=== PATIENT | female | born 1965 | race Caucasian/White ===

== ENCOUNTER 2020-12-25 07:06 | Outpatient (REF) | payer BC, SELFPAY ==
[2020-12-25 07:35] LABS: MANUAL DIFF FLAG NO
[2020-12-25 07:39] LABS: Basophils Absolute Auto 0.1 X10*3/uL (0.0-0.2); Basophils Percent Auto 0.5 % (0-2); Eosinophils Absolute Auto 0.2 X10*3/uL (0.0-0.4); Eosinophils Percent Auto 2.4 % (0-4); Hematocrit 46.9 % (37-47); Hemoglobin 15.7 g/dl (12.0-16.0); Imm Gran Abs Auto 0.04 X10*3/uL (0.00-0.03); Imm Gran Pct Auto 0.4 % (0.0-0.4); Lymphocytes Absolute Auto 2.4 X10*3/uL (1.2-4.9); Lymphocytes Percent Auto 25.7 % (20-40); Mean Corpuscular HGB Conc 33.5 g/dl (31.0-35.0); Mean Corpuscular Hemoglobin 29.5 pg (27.0-33.0); Mean Corpuscular Volume 88.2 fL (80-98); Mean Platelet Volume 11.4 fL (9.4-12.3); Monocytes Absolute Auto 0.8 X10*3/uL (0.1-1.2); Monocytes Percent Auto 8.4 % (2-11); Neutrophils Absolute Auto 5.8 X10*3/uL (2.0-8.3); Neutrophils Percent Auto 62.6 % (45-73); Platelet Count 229 X10*3/uL (160-400); Red Blood Count 5.32 X10*6/uL (4.20-5.50); Red Cell Distribution Width 12.4 % (11.0-16.0); White Blood Count 9.2 X10*3/uL (4.8-10.8)
[2020-12-25 08:08] LABS: Alanine Aminotransferase 42 U/L (0-31); Albumin Level 4.1 g/dL (3.5-5.0); Alkaline Phosphatase 73 U/L (39-117); Anion Gap 14 (12-20); Aspartate Amino Transferase 41 U/L (5-31); Bilirubin Total 1.4 mg/dL (0.0-1.0); Blood Urea Nitrogen 14 mg/dL (9-16); Calcium 9.1 mg/dL (8.4-10.2); Carbon Dioxide 29 mmol/L (22-29); Chloride 102 mmol/L (96-108); Cholesterol 255 mg/dL; Estimated Glomerular Filt Rate > 60; Glucose Fasting 113 mg/dL (60-99); HDL Cholesterol 44 mg/dL; Iron 77 mcg/dL (30-160); LDL Cholesterol Calculated 148 mg/dl; Percent Iron Saturation 20 % (15-50); Potassium 3.7 mmol/L (3.3-5.1); Sodium 141 mmol/L (135-145); Total Iron Binding Capacity 385 mcg/dL (228-428); Total Protein 6.7 g/dL (6.5-8.0); Triglycerides 316 mg/dL; Unsaturated Iron Binding 308 ug/dL
[2020-12-25 13:36] LABS: Folate 15.1 ng/mL (> or = 4.0); Vitamin B12 569 pg/mL (200-900)
[2020-12-28 23:51] LABS: Parietal Cell Antibody 41.2 Unit (<=20.0)
[2020-12-29 12:11] LABS: Vitamin D 25-OH, D2 <4 ng/mL; Vitamin D 25-OH, D3 35 ng/mL; Vitamin D 25-OH, Total 35 ng/mL (30-100)
[2020-12-30 20:26] LABS: Intrinsic Factor Antibodies Negative (Negative)
== END 2020-12-25 07:07 | disposition home or self-care (01) ==
LOC: HO.LAB 07:06
PROVIDERS: PCP Internal Medicine; Visit Provider Internal Medicine
DX: I10 Essential (primary) hypertension (principal); D50.9 Iron deficiency anemia, unspecified; D51.9 Vitamin B12 deficiency anemia, unspecified; E55.9 Vitamin D deficiency, unspecified
CPT/HCPCS: 36415; 80053; 80061; 82306; 82607; 82746; 83516; 83540; 85025; 86340

== ENCOUNTER 2021-07-02 07:07 | Outpatient (REF) | payer BC, SELFPAY ==
[2021-07-02 07:55] LABS: MANUAL DIFF FLAG NO
[2021-07-02 08:02] LABS: Basophils Percent Auto 0.3 % (0-2); Eosinophils Absolute Auto 0.3 X10*3/uL (0.0-0.4); Eosinophils Percent Auto 3.2 % (0-4); Hematocrit 43.3 % (37-47); Hemoglobin 14.8 g/dl (12.0-16.0); Imm Gran Abs Auto 0.05 X10*3/uL (0.00-0.03); Imm Gran Pct Auto 0.6 % (0.0-0.4); Lymphocytes Absolute Auto 2.4 X10*3/uL (1.2-4.9); Lymphocytes Percent Auto 27.8 % (20-40); Mean Corpuscular HGB Conc 34.2 g/dl (31.0-35.0); Mean Corpuscular Hemoglobin 29.2 pg (27.0-33.0); Mean Corpuscular Volume 85.6 fL (80-98); Mean Platelet Volume 11.9 fL (9.4-12.3); Monocytes Absolute Auto 0.7 X10*3/uL (0.1-1.2); Monocytes Percent Auto 7.6 % (2-11); Neutrophils Absolute Auto 5.3 X10*3/uL (2.0-8.3); Neutrophils Percent Auto 60.5 % (45-73); Platelet Count 201 X10*3/uL (160-400); Red Blood Count 5.06 X10*6/uL (4.20-5.50); Red Cell Distribution Width 12.4 % (11.0-16.0); White Blood Count 8.8 X10*3/uL (4.8-10.8)
[2021-07-02 10:07] LABS: Alanine Aminotransferase 26 U/L (0-31); Albumin Level 3.9 g/dL (3.5-5.0); Alkaline Phosphatase 77 U/L (39-117); Anion Gap 13 (12-20); Aspartate Amino Transferase 24 U/L (5-31); Bilirubin Total 1.9 mg/dL (0.0-1.0); Blood Urea Nitrogen 15 mg/dL (9-16); Calcium 9.3 mg/dL (8.4-10.2); Carbon Dioxide 29 mmol/L (22-29); Chloride 103 mmol/L (96-108); Cholesterol 180 mg/dL; Estimated Glomerular Filt Rate > 60; Glucose Fasting 104 mg/dL (60-99); HDL Cholesterol 40 mg/dL; LDL Cholesterol Calculated 104 mg/dl; Potassium 3.4 mmol/L (3.3-5.1); Sodium 142 mmol/L (135-145); Total Protein 6.2 g/dL (6.5-8.0); Triglycerides 184 mg/dL
[2021-07-04 03:50] LABS: Folate 12.6 ng/mL (> or = 4.0); Vitamin B12 432 pg/mL (200-900)
[2021-07-07 15:36] LABS: Vitamin D 25-OH, D2 <4 ng/mL; Vitamin D 25-OH, D3 33 ng/mL; Vitamin D 25-OH, Total 33 ng/mL (30-100)
== END 2021-07-02 07:08 | disposition home or self-care (01) ==
LOC: HO.LAB 07:07
PROVIDERS: PCP Internal Medicine; Visit Provider Internal Medicine
DX: E78.5 Hyperlipidemia, unspecified (principal); I10 Essential (primary) hypertension; E55.9 Vitamin D deficiency, unspecified; D51.0 Vitamin B12 deficiency anemia due to intrinsic factor deficiency; D50.9 Iron deficiency anemia, unspecified
CPT/HCPCS: 36415; 80053; 80061; 82306; 82607; 82746; 85025

== ENCOUNTER 2021-11-05 07:20 | Outpatient (REF) | payer BC, SELFPAY ==
[2021-11-05 07:42] LABS: MANUAL DIFF FLAG NO
[2021-11-05 08:13] LABS: Basophils Percent Auto 0.3 % (0-2); Eosinophils Absolute Auto 0.2 X10*3/uL (0.0-0.4); Eosinophils Percent Auto 2.5 % (0-4); Hematocrit 41.1 % (37.0-47.0); Hemoglobin 13.6 g/dl (12.0-16.0); Imm Gran Abs Auto 0.06 X10*3/uL (0.00-0.03); Imm Gran Pct Auto 0.6 % (0.0-0.4); Lymphocytes Absolute Auto 2.7 X10*3/uL (1.2-4.9); Lymphocytes Percent Auto 27.3 % (20-40); Mean Corpuscular HGB Conc 33.1 g/dl (31.0-35.0); Mean Corpuscular Hemoglobin 29.2 pg (27.0-33.0); Mean Corpuscular Volume 88.2 fL (80.0-98.0); Mean Platelet Volume 11.9 fL (9.4-12.3); Monocytes Absolute Auto 0.8 X10*3/uL (0.1-1.2); Monocytes Percent Auto 8.3 % (2-11); Neutrophils Absolute Auto 5.9 x10*3/uL (2.0-8.3); Platelet Count 214 X10*3/uL (160-400); Red Blood Count 4.66 X10*6/uL (4.20-5.50); Red Cell Distribution Width 13.9 % (11.0-16.0); White Blood Count 9.7 X10*3/uL (4.8-10.8)
[2021-11-05 08:39] LABS: Alanine Aminotransferase 24 U/L (0-31); Albumin Level 3.7 g/dL (3.5-5.0); Alkaline Phosphatase 69 U/L (39-117); Anion Gap 12 (12-20); Aspartate Amino Transferase 23 U/L (5-31); Blood Urea Nitrogen 18 mg/dL (9-16); Calcium 9.3 mg/dL (8.4-10.2); Carbon Dioxide 29 mmol/L (22-29); Chloride 103 mmol/L (96-108); Cholesterol 169 mg/dL; Estimated Glomerular Filt Rate > 60; Glucose Fasting 98 mg/dL (60-99); HDL Cholesterol 43 mg/dL; LDL Cholesterol Calculated 98 mg/dl; Potassium 3.4 mmol/L (3.3-5.1); Sodium 141 mmol/L (135-145); Total Protein 6.3 g/dL (6.5-8.0); Triglycerides 141 mg/dL
[2021-11-07 09:30] LABS: Folate 17.8 ng/mL (> or = 4.0); Vitamin B12 525 pg/mL (200-900)
[2021-11-10 12:47] LABS: Vitamin D 25-OH, D2 <4 ng/mL; Vitamin D 25-OH, D3 33 ng/mL; Vitamin D 25-OH, Total 33 ng/mL (30-100)
== END 2021-11-05 07:21 | disposition home or self-care (01) ==
LOC: HO.LAB 07:20
PROVIDERS: Visit Provider Internal Medicine
DX: E78.5 Hyperlipidemia, unspecified (principal); E55.9 Vitamin D deficiency, unspecified; D64.9 Anemia, unspecified; D51.0 Vitamin B12 deficiency anemia due to intrinsic factor deficiency
CPT/HCPCS: 36415; 80053; 80061; 82306; 82607; 82746; 85025

== ENCOUNTER 2022-04-08 07:14 | Outpatient (REF) | payer BC, SELFPAY ==
[2022-04-08 07:31] LABS: MANUAL DIFF FLAG NO
[2022-04-08 08:18] LABS: Basophils Percent Auto 0.4 % (0-2); Eosinophils Absolute Auto 0.4 X10*3/uL (0.0-0.4); Eosinophils Percent Auto 4.3 % (0-4); Hematocrit 44.6 % (37.0-47.0); Hemoglobin 14.4 g/dl (12.0-16.0); Imm Gran Abs Auto 0.05 X10*3/uL (0.00-0.03); Imm Gran Pct Auto 0.5 % (0.0-0.4); Lymphocytes Absolute Auto 2.4 X10*3/uL (1.2-4.9); Lymphocytes Percent Auto 24.6 % (20-40); Mean Corpuscular HGB Conc 32.3 g/dl (31.0-35.0); Mean Corpuscular Hemoglobin 27.7 pg (27.0-33.0); Mean Corpuscular Volume 85.8 fL (80.0-98.0); Mean Platelet Volume 11.6 fL (9.4-12.3); Monocytes Absolute Auto 0.9 X10*3/uL (0.1-1.2); Monocytes Percent Auto 9.4 % (2-11); Neutrophils Absolute Auto 5.9 x10*3/uL (2.0-8.3); Neutrophils Percent Auto 60.8 % (45-73); Platelet Count 201 X10*3/uL (160-400); Red Cell Distribution Width 13.2 % (11.0-16.0); White Blood Count 9.6 X10*3/uL (4.8-10.8)
[2022-04-08 08:32] LABS: Alanine Aminotransferase 32 U/L (0-31); Albumin Level 3.9 g/dL (3.5-5.0); Alkaline Phosphatase 79 U/L (39-117); Anion Gap 13 (12-20); Aspartate Amino Transferase 29 U/L (5-31); Bilirubin Total 1.7 mg/dL (0.0-1.0); Blood Urea Nitrogen 15 mg/dL (9-16); Calcium 9.3 mg/dL (8.4-10.2); Carbon Dioxide 30 mmol/L (22-29); Chloride 103 mmol/L (96-108); Cholesterol 162 mg/dL; Estimated Glomerular Filt Rate > 60; Glucose Fasting 106 mg/dL (60-99); HDL Cholesterol 44 mg/dL; Iron 66 mcg/dL (30-160); LDL Cholesterol Calculated 89 mg/dl; Percent Iron Saturation 17 % (15-50); Potassium 3.9 mmol/L (3.3-5.1); Sodium 142 mmol/L (135-145); Total Iron Binding Capacity 387 mcg/dL (228-428); Total Protein 6.4 g/dL (6.5-8.0); Triglycerides 148 mg/dL; Unsaturated Iron Binding 321 ug/dL
[2022-04-10 09:00] LABS: Vitamin B12 555 pg/mL (200-900)
[2022-04-13 12:26] LABS: Vitamin D 25-OH, D2 <4 ng/mL; Vitamin D 25-OH, D3 45 ng/mL; Vitamin D 25-OH, Total 45 ng/mL (30-100)
== END 2022-04-08 07:15 | disposition home or self-care (01) ==
LOC: HO.LAB 07:14
PROVIDERS: PCP Internal Medicine; Visit Provider Internal Medicine
DX: E55.9 Vitamin D deficiency, unspecified (principal); D51.0 Vitamin B12 deficiency anemia due to intrinsic factor deficiency; E78.5 Hyperlipidemia, unspecified; D64.9 Anemia, unspecified; E78.2 Mixed hyperlipidemia
CPT/HCPCS: 36415; 80053; 80061; 82306; 82607; 82746; 83540; 85025

== ENCOUNTER 2023-03-15 07:43 | Outpatient (REF) | payer OTHER, SELFPAY ==
[2023-03-15 07:54] LABS: MANUAL DIFF FLAG NO
[2023-03-15 08:20] LABS: Basophils Absolute Auto 0.1 X10*3/uL (0.0-0.2); Basophils Percent Auto 0.6 % (0-2); Eosinophils Absolute Auto 0.3 X10*3/uL (0.0-0.4); Eosinophils Percent Auto 2.9 % (0-4); Hematocrit 47.4 % (37.0-47.0); Hemoglobin 15.3 g/dl (12.0-16.0); Imm Gran Abs Auto 0.04 X10*3/uL (0.00-0.03); Imm Gran Pct Auto 0.5 % (0.0-0.4); Lymphocytes Absolute Auto 2.6 X10*3/uL (1.2-4.9); Lymphocytes Percent Auto 29.5 % (20-40); Mean Corpuscular HGB Conc 32.3 g/dl (31.0-35.0); Mean Corpuscular Hemoglobin 27.9 pg (27.0-33.0); Mean Corpuscular Volume 86.3 fL (80.0-98.0); Mean Platelet Volume 11.9 fL (9.4-12.3); Monocytes Absolute Auto 0.7 X10*3/uL (0.1-1.2); Monocytes Percent Auto 8.4 % (2-11); Neutrophils Percent Auto 58.1 % (45-73); Platelet Count 194 X10*3/uL (160-400); Red Blood Count 5.49 X10*6/uL (4.20-5.50); Red Cell Distribution Width 12.7 % (11.0-16.0); White Blood Count 8.6 X10*3/uL (4.8-10.8)
[2023-03-15 09:14] LABS: Alanine Aminotransferase 20 U/L (0-31); Albumin Level 3.9 g/dL (3.5-5.0); Alkaline Phosphatase 83 U/L (39-117); Anion Gap 13 (12-20); Aspartate Amino Transferase 18 U/L (5-31); Bilirubin Total 1.7 mg/dL (0.0-1.0); Blood Urea Nitrogen 21 mg/dL (9-16); Calcium 9.4 mg/dL (8.4-10.2); Carbon Dioxide 28 mmol/L (22-29); Chloride 105 mmol/L (96-108); Cholesterol 175 mg/dL; Estimated Glomerular Filt Rate > 60; Glucose Fasting 109 mg/dL (60-99); HDL Cholesterol 38 mg/dL; LDL Cholesterol Calculated 99 mg/dl; Potassium 3.3 mmol/L (3.3-5.1); Sodium 143 mmol/L (135-145); Total Protein 6.4 g/dL (6.5-8.0); Triglycerides 191 mg/dL
[2023-03-15 09:44] LABS: Vitamin B12 469 pg/mL (200-900)
== END 2023-03-15 07:44 | disposition home or self-care (01) ==
LOC: HO.LAB 07:43
PROVIDERS: PCP Internal Medicine; Visit Provider Internal Medicine
DX: E78.5 Hyperlipidemia, unspecified (principal); D51.0 Vitamin B12 deficiency anemia due to intrinsic factor deficiency; D64.9 Anemia, unspecified; I10 Essential (primary) hypertension
CPT/HCPCS: 36415; 80053; 80061; 82607; 82746; 85025

== ENCOUNTER 2024-05-29 16:45 | Outpatient (AMB) | payer OTHER, SELFPAY ==
[2024-05-29 16:46] VITALS: BP 122/70; BMI 41.6
--- NOTE | 2024-05-29 16:46 | MHC.PC.OV ---
Vital Signs 05/29/24 16:46 Height 5 ft 3 in Weight 235 lb BMI 41.6 BP 122/70 Blood Pressure Location Lt brachial Position Sitting Intake Visit Reasons: 6 month follow up Intake Note: Patient here for a 6 month follow up Psychiatric Nurse Practitioner Required: No Accompanied by: Self / Same As Patient Allergies No Known Allergies [No Known Allergies*] Allergy (Verified 05/29/24 17:01) Medication List - Last Reconciled 05/29/24 by Maggie Kaba MD atenolol-chlorthalidone 100-25 mg 1 tab PO DAILY atorvastatin 20 mg PO BEDTIME 90 days blood pressure test kit-large As directed cholecalciferol (vitamin D3) (Vitamin D3) 25 mcg PO DAILY cyanocobalamin (vitamin B-12) 1,000 mcg PO DAILY 90 days duloxetine 30 mg PO DAILY 90 days lisinopril 40 mg PO DAILY 90 days magnesium oxide 500 mg PO DAILY 90 days Tobacco use date assessed: 05/29/24 Dental Screening Dental Screen Date: 05/29/24 Did you have a dental visit in the last 12 months?: Yes Did you have a dental problem in the last 6 months where you did not have access to dental care?: No Was dental information given to patient?: Patient has dentist HPI HPI Comments History of Present Illness Details This is a 58-year-old female with hypertension, mixed hyperlipidemia and morbid obesity that comes today complaining of bilateral knee pain that has been present for over 6 months. Pain is aggravated by activity. Blood pressure stable today. Lipid panel will be ordered. She is morbidly obese with a BMI of 41.6 and has cardiovascular risk factors such as hypertension and mixed hyperlipidemia therefore I will start her on Wegovy. She has tried diet and exercise in the past with no significant improvement. She also has mild recurrent major depression on duloxetine. [facility] Medical History (Updated 05/29/24 @ 17:32 by Maggie Kaba MD) Morbid obesity with BMI of 40.0-44.9, adult Obese Mixed hyperlipidemia Pernicious anemia Iron (Fe) deficiency anemia (~08/31/20) B12 deficiency anemia Hypovitaminosis D Essential hypertension Surgical History History of eye surgery History of Family History Father Hypertension Mother Hypertension Maternal Grandmother Ovarian cancer Social History Housing: House Alcohol intake: current Alcohol intake frequency: holidays/special occasions only Alcohol type: beer and wine Patient Tobacco Use Status: Never used Tobacco e-Cigarette/Vaping Use: Never Used Second Hand Smoke Exposure: Yes service: No Current occupational status: employed Current occupational exposures/hazards: No Cognitive needs: No Hearing needs: No Vision needs: No Questionnaire PHQ-9 Over the last 2 weeks, how often have you been bothered by any of the following problems? 1. Little interest or pleasure in doing things: several days 2. Feeling down, depressed, or hopeless: more than half the days 3. Trouble falling or staying asleep, or sleeping too much: more than half the days 5. Poor appetite or overeating: several days 6. Feeling bad about yourself - or that you are a failure or have let yourself or your family down: not at all 7. Trouble concentrating on things, such as reading the newspaper or watching television: not at all 8. Moving or speaking so slowly that other people could have noticed. Or the opposite - being so fidgety or restless that you have been moving around a lot more than usual: not at all 9. Thoughts that you would be better off or of hurting yourself in some way: not at all Depression Screening Interpretation: Positive Depression Screening Follow-up: Existing condition, In treatment and Follow-up Visit Requested Depression Screening Done: Yes 96244 - PHQ-9 Billing: Yes Source: Developed by Drs. Rocky Palm, Dipti Solares, Shaka Crandall and colleagues, with an educational chio from [email or web address]. Thrive Questionnaire Date Thrive assessed: 05/29/24 I am a: Patient What is your living situation today?: I have a steady place to live Within the past 12 months, did the food you bought not last and you didn't have the money to get more?: Never true Within the past 12 months, did you worry whether your food would run out before you got money to buy more?: Never true Do you have trouble paying for medicines?: No Do you have trouble getting transportation to medical appointments?: No Do you have trouble paying your heating and electricity bill?: No Do you have trouble taking care of your child, family member or friend?: No Do you have trouble with day-to-day activities such as bathing, preparing meals, shopping, managing finances, etc.?: No Are you currently unemployed and looking for a job?: No Are you interested in more education?: No Please select the resources that you would like help with: None Currently or been in a relationship where the following occur: No concerns reported THRIVE Score: 0 AUDIT C Alcohol Use Questionnaire (AUDIT-C) 1. How often do you have a drink containing alcohol?: Monthly or less 2. How many drinks containing alcohol do you have on a typical day when you are drinking?: 1 or 2 3. How often do you have six or more drinks on one occasion?: Never Total Score: 1 Score Reviewed/Action Taken: No NEDRA-7 AMB Questionnaire NEDRA-7 Date NEDRA - 7 assessed: 05/29/24 Feeling nervous, anxious, or on edge: 3 = Nearly every day Not being able to stop or control worryin = Not at all Worrying too much about different things: 1 = Several days Trouble relaxin = Several days Being so restless that it is hard to sit still: 0 = Not at all Becoming easily annoyed or irritable: 0 = Not at all Feeling afraid as if something awful might happen: 0 = Not at all Total NEDRA-7 score (0-4 normal; 5-9 mild; 10-14 moderate; 15-21 severe): 5 Source: Developed by Drs. Rocky Palm, Dipti Solares, Shaka Crandall and colleagues, with an educational chio from [email or web address]. NEDRA-7 Assessment Billing NEDRA-7 Assessment Tool: NEDRA-7 Assessment 07314 Review of Systems Const All systems reviewed & are unremarkable except as noted in HPI and below Card Denies chest pain at rest, Denies chest pain with activity, Denies edema, Denies irregular heart rhythm, Denies claudication, Denies dyspnea, Denies dyspnea on exertion, Denies orthopnea, Denies paroxysmal nocturnal dyspnea and Denies slow heart rate Resp Denies cough, Denies dyspnea and Denies dyspnea on exertion Physical exam (Primary Care) Vital Signs: Last Vital Signs BP 122/70 05/29/24 16:46 BMI result Body Mass Index 41.6 BMI Assessment/Plan discussion: High BMI High, discussed plan: lifestyle, weight reduction, dietary and physical activity Tobacco/Smoking Status: Tobacco use Status Tobacco use date assessed 05/29/24 05/29/24 16:54 Patient Tobacco Use Status Never used Tobacco 05/29/24 16:54 e-Cigarette/Vaping Use Never Used 05/29/24 16:54 PHQ-9: PHQ-9 Score PHQ-9: Total score 8 05/29/24 16:54 Depression Screening Interpretation: Positive Depression Screening Follow-up: Existing condition, In treatment and Follow-up Visit Requested Thrive Assessment: Date of Thrive Assessment Date Thrive assessed 05/29/24 05/29/24 16:54 Currently or been in a relationship where the following occur: No concerns reported Resp Effort & Inspection: normal respiratory effort Auscultation: clear to auscultation bilaterally Cardio Jugular venous distension: no JVD Rate: regular rate Rhythm: regular rhythm Heart sounds: S1 normal heart sound present and S2 normal heart sound present Extrem General: Yes full ROM Assessment and Plan Assessment & Plan (1) Essential hypertension: Code(s): I10 - Essential (primary) hypertension Plan: Continue lisinopril and atenolol-chlorthalidone. Blood pressure goal is equal or less than 130/80. (2) Mixed hyperlipidemia: Code(s): E78.2 - Mixed hyperlipidemia Plan: Continue statins. Repeat lipid panel. (3) Morbid obesity with BMI of 40.0-44.9, adult: Code(s): E66.01 - Morbid (severe) obesity due to excess calories; Z68.41 - Body mass index [BMI] 40.0-44.9, adult Plan: Start Wegovy. BMI goal is less than 30. (4) Right knee pain: Code(s): M25.561 - Pain in right knee Qualifiers: Chronicity: chronic Qualified Code(s): M25.561 - Pain in right knee; G89.29 - Other chronic pain Plan: X-ray ordered. Referred to Ortho. (5) Left knee pain: Code(s): M25.562 - Pain in left knee Qualifiers: Chronicity: chronic Qualified Code(s): M25.562 - Pain in left knee; G89.29 - Other chronic pain Plan: X-ray ordered. Referred to Ortho. (6) Mild recurrent major depression: Code(s): F33.0 - Major depressive disorder, recurrent, mild Plan: Continue duloxetine. Orders: Orders Vitamin B12 and Folate Today E53.8 - Deficiency of other specified B group vitamins Comprehensive Clive. Panel Fast Today E66.01 - Morbid (severe) obesity due to excess calories, Z68.41 - Body mass index [BMI] 40.0-44.9, adult XR knee LT 2V Today M25.562 - Pain in left knee XR knee RT 2V Today M25.561 - Pain in right knee Lipid Panel Today E78.5 - Hyperlipidemia, unspecified Vitamin D 25-OH Total Today E55.9 - Vitamin D deficiency, unspecified Referrals Orthopedics Referral M25.561 - Pain in right knee, M25.562 - Pain in left knee Medications: New diclofenac sodium 1% (Arthritis Pain (diclofenac)) apply to single elbow, wrist or hand; for hand includes palm/fingers/back of hand 2 grams topical QID 30 days 100 grams 0RF semaglutide (weight loss) (Wegovy) administer weeks 1 through 4 of therapy 0.25 mg (0.5 mL) subcut QWEEK 4 weeks 2 mL 0RF E66.01 - Morbid (severe) obesity due to excess calories, Z68.41 - Body mass index [BMI] 40.0-44.9, adult naproxen 500 mg PO BID 30 days PRN 60 tabs 2RF pain Coding Level of Care Code Est Pt Level 4 (00899) Complex EM visit Add On G2211 Diagnoses Essential hypertension I10 Mixed hyperlipidemia E78.2 Morbid obesity with BMI of 40.0-44.9, adult E66.01; Z68.41 Chronic pain of right knee M25.561; G89.29 Chronicity: chronic Chronic pain of left knee M25.562; G89.29 Chronicity: chronic Mild recurrent major depression F33.0 Additional Codes NEDRA-7 Assessment Billing - NEDRA-7 Assessment Tool: NEDRA-7 Assessment [id number] ([id number]) Time Spent (min) 25
== END 2024-05-29 17:26 | disposition home or self-care (01) ==
PROVIDERS: PCP Internal Medicine; Visit Provider Internal Medicine
DX: I10 Essential (primary) hypertension (principal); E66.01 Morbid (severe) obesity due to excess calories; Z68.41 Body mass index [BMI] 40.0-44.9, adult; F33.0 Major depressive disorder, recurrent, mild; E78.2 Mixed hyperlipidemia; M25.561 Pain in right knee; G89.29 Other chronic pain; M25.562 Pain in left knee
CPT/HCPCS: 99214; G2211

== ENCOUNTER 2024-07-19 10:49 | Outpatient (REF) | payer OTHER, SELFPAY ==
[2024-07-19 12:06] LABS: Alanine Aminotransferase 18 U/L (0-31); Albumin Level 3.9 g/dL (3.5-5.0); Alkaline Phosphatase 87 U/L (39-117); Anion Gap 12 (12-20); Aspartate Amino Transferase 16 U/L (5-31); Bilirubin Total 1.4 mg/dL (0.0-1.0); Blood Urea Nitrogen 22 mg/dL (9-16); Calcium 9.3 mg/dL (8.4-10.2); Carbon Dioxide 30 mmol/L (22-29); Chloride 103 mmol/L (96-108); Cholesterol 166 mg/dL (<200); Estimated Glomerular Filt Rate > 60; Glucose Fasting 112 mg/dL (60-99); HDL Cholesterol 39 mg/dL (>40); LDL Cholesterol Calculated 92 mg/dL (<100); Potassium 3.2 mmol/L (3.3-5.1); Sodium 142 mmol/L (135-145); Total Protein 6.7 g/dL (6.5-8.0); Triglycerides 179 mg/dL (<150); Vitamin D 25-OH Total 54.2 ng/mL (>30)
[2024-07-19 12:19] LABS: Folate 11.5 ng/mL (> or = 4.0); Vitamin B12 602 pg/mL (200-900)
== END 2024-07-19 10:50 | disposition home or self-care (01) ==
LOC: HO.LAB 10:49
PROVIDERS: PCP Internal Medicine; Visit Provider Internal Medicine
DX: E66.01 Morbid (severe) obesity due to excess calories (principal); Z68.41 Body mass index [BMI] 40.0-44.9, adult; E78.5 Hyperlipidemia, unspecified; E55.9 Vitamin D deficiency, unspecified; E53.8 Deficiency of other specified B group vitamins
CPT/HCPCS: 36415; 80053; 80061; 82306; 82607; 82746

== ENCOUNTER 2024-07-29 08:09 | Outpatient (REF) | payer OTHER, SELFPAY ==
--- NOTE | ~2024-07-29 | XR_ITS ---
EXAMINATION: XR KNEE RIGHT 2 VIEWS CLINICAL INFORMATION: Pain in unspecified knee M25.569. COMPARISON: XR Right knee 06/15/2018 TECHNIQUE: Two views of the right knee. FINDINGS: No fracture or dislocation. Tiny suprapatellar joint effusion. Near complete loss of medial and lateral joint space heights with associated moderate to large tricompartmental marginal osteophytes. XR/XR knee RT 3V IMPRESSION: Severe degenerative changes of the right knee, progressed from 2018 imaging. Electronically signed by: Ricardo Arroyo MD 09/24/2024 09:15 AM [facility]
--- NOTE | ~2024-07-29 | XR_ITS ---
EXAMINATION: XR KNEE LEFT 3 VIEWS CLINICAL INFORMATION: Pain in unspecified knee M25.569. COMPARISON: XR Left knee 06/15/2018 TECHNIQUE: Three views of the left knee. FINDINGS: No fracture or dislocation. Tiny suprapatellar joint effusion. Complete loss of medial joint space height with severe narrowing of the lateral joint space. Moderate-sized tricompartmental marginal osteophytes. No localized soft tissue swelling. No radiopaque foreign body. XR/XR knee LT 3V IMPRESSION: Severe degenerative changes of the left knee, progressed from 2018 imaging. Electronically signed by: Ricardo Arroyo MD 09/24/2024 09:16 AM [facility]
== END 2024-07-29 08:10 | disposition home or self-care (01) ==
LOC: HO.HOSX 08:09
PROVIDERS: Visit Provider Physician Assistant
DX: M17.0 Bilateral primary osteoarthritis of knee (principal)
CPT/HCPCS: 73562

== ENCOUNTER 2024-07-29 09:53 | Outpatient (AMB) | payer OTHER, SELFPAY ==
--- NOTE | 2024-07-29 10:06 | MHC.OFFVIS ---
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 Patient reports ongoing pain for about 26 years and she feels it is getting worse. Hx of injections with a day of relief. Hx of 3-4 months of PT with no relief. She mentions that her right knee is worse than the left knee. Patient states that she has tried exercising and changing her diet which didn't give her relief. She mentions when she is sitting her pain is a bit better. Patient is thinking about replacement and she would like to do both but she would choose her right knee. 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 The patient was seen by Dr. Maggie Quigley, PCP on 05/29/24 with the chief complaint of bilateral knee pain. She reported aggravating pain with activities. X-rays of the bilateral knees were ordered. She was prescribed diclofenac sodium 1% 2 grams topical QID and naproxen 500 mg PO BID PRN for pain. While in the office today, the patient reports ongoing bilateral knee pain for about 26 years and has been worsening. She reports the right knee pain is worse than the left knee. The patient has tried and failed 3-4 months of physical therapy, exercising, injections with a day of relief, and also dietary changes. She mentions pain alleviates a bit when she sits. She would like to have knee replacement for bilateral knees; however, she chose her right knee to have it first. The patient has a medical history of hypertension, morbid obesity, and mixed hyperlipidemia. [facility] Medical History (Updated 07/29/24 @ 11:04 by Azalea Webb) Morbid obesity with BMI of 40.0-44.9, adult Obese Mixed hyperlipidemia Pernicious anemia Iron (Fe) deficiency anemia (~08/31/20) B12 deficiency anemia Hypovitaminosis D Essential hypertension Surgical History History of eye surgery History of Family History Father Hypertension Mother Hypertension Maternal Grandmother Ovarian cancer Social History (Updated 07/29/24 @ 10:13 by Vlad Lang) Housing: House Alcohol intake: current Alcohol intake frequency: holidays/special occasions only Alcohol type: beer and wine Patient Tobacco Use Status: Never used Tobacco e-Cigarette/Vaping Use: Never Used Second Hand Smoke Exposure: Yes service: No Current occupational status: employed 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 No ecchymosis, erythema, or joint effusion. Full range of motion. Crepitus is felt with ROM. NVI. Assessment & Plan Assessment & Plan (1) Osteoarthritis of knees, bilateral: Code(s): M17.0 - Bilateral primary osteoarthritis of knee Category: Medical Plan Ms. Heller is a 58-year-old female who presents in the office today as a new patient, for an evaluation of bilateral knee pain. The patient was seen by Dr. Maggie Quigley, PCP on 05/29/24 with the chief complaint of bilateral knee pain. She reported aggravating pain with activities. X-rays of the bilateral knees were ordered. She was prescribed diclofenac sodium 1% 2 grams topical QID and naproxen 500 mg PO BID PRN for pain. While in the office today, the patient reports ongoing bilateral knee pain for about 26 years and has been worsening. She reports the right knee pain is worse than the left knee. The patient has tried and failed 3-4 months of physical therapy, exercising, injections with a day of relief, and also dietary changes. She mentions pain alleviates a bit when she sits. She would like to have knee replacement for bilateral knees; however, she chose her right knee to have it first. The patient has a medical history of hypertension, morbid obesity, and mixed hyperlipidemia. The patient is adamant about performing bilateral total knee arthroplasties at the same time. I did advise against simultaneous bilateral knee procedures in regards to the patient?s pain, tolerance, and recovery. Despite that, she still would like to further discuss the surgical intervention to the bilateral knees with the surgeon. She is scheduled for an appointment with Dr. Mcdonald on 08/25/24. Salma, the surgical appliance fitter, who was able to meet the patient while in the office today to help with the process of total knee replacement started. Follow-up will be with Dr. Mcdonald as scheduled, or sooner if needed. X-rays of the bilateral knees, which were obtained while in the office today and were reviewed by me, Francisca Malcolm PA-C, revealed significant osteoarthritis. Orders: Orders XR knee RT 3V 07/29/24 M25.569 - Pain in unspecified knee XR knee LT 3V 07/29/24 M25.569 - Pain in unspecified knee Patient Instructions: Scribed by Azalea Webb, biomedical engineering professor, for Francisca Malcolm PA-C on 07/29/24 at 10:20 am EST. Coding Level of Care Code New Pt Level 4 (13129) Diagnoses Osteoarthritis of knees, bilateral M17.0
== END 2024-07-29 10:49 | disposition home or self-care (01) ==
PROVIDERS: PCP Internal Medicine; Visit Provider Physician Assistant
DX: M17.0 Bilateral primary osteoarthritis of knee (principal)
CPT/HCPCS: 99204

== ENCOUNTER 2024-08-02 08:48 | Outpatient (REF) | payer OTHER, SELFPAY ==
[2024-08-02 09:49] LABS: Potassium 3.6 mmol/L (3.3-5.1)
== END 2024-08-02 08:49 | disposition home or self-care (01) ==
LOC: HO.LAB 08:48
PROVIDERS: PCP Internal Medicine; Visit Provider Internal Medicine
DX: E87.6 Hypokalemia (principal)
CPT/HCPCS: 36415; 84132

== ENCOUNTER 2024-08-25 14:39 | Outpatient (AMB) | payer OTHER, SELFPAY ==
--- NOTE | 2024-08-25 14:42 | A.OFFVIS_ITS ---
Intake Visit Reasons: OV - discuss right TKA Intake Note: Janina is a 58 year old female who presents today for a follow up of her right knee OA. Patient reports worsening and ongoing pain for about 26 years. Hx of injections that provided a day of relief. Tried and failed 3/4 months of PT. Has pain in both of the knees but the right is worse than the left. She has previously met with our nurse navigator and is booked for R TKA 12/03/24. Allergies No Known Allergies [No Known Allergies*] Allergy (Verified 07/29/24 10:10) HPI HPI OV - discuss right TKA: Details: Janina is a 58 year old female who presents today for a follow up of her right knee OA. Patient reports worsening and ongoing pain for about 26 years. Hx of injections that provided a day of relief. Tried and failed 3/4 months of PT. Has pain in both of the knees but the right is worse than the left. She has previously met with our nurse navigator and is booked for R TKA 12/03/24. [facility] Medical History (Updated 08/04/24 @ 14:06 by Maggie Kaba MD) Morbid obesity with BMI of 40.0-44.9, adult Obese Mixed hyperlipidemia Pernicious anemia Iron (Fe) deficiency anemia (~08/31/20) B12 deficiency anemia Hypovitaminosis D Essential hypertension Surgical History History of eye surgery History of Family History Father Hypertension Mother Hypertension Maternal Grandmother Ovarian cancer Social History (Updated 07/29/24 @ 10:13 by Vlad Lang) Housing: House Alcohol intake: current Alcohol intake frequency: holidays/special occasions only Alcohol type: beer and wine Patient Tobacco Use Status: Never used Tobacco e-Cigarette/Vaping Use: Never Used Second Hand Smoke Exposure: Yes service: No Current occupational status: employed 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 Bilateral varus malalignment. Results Reviewed Results Reviewed: I personally reviewed relevant radiographs. Severe bilateral knee OA with varus malalignment. Assessment & Plan Assessment & Plan (1) Osteoarthritis of knees, bilateral: Code(s): M17.0 - Bilateral primary osteoarthritis of knee Category: Medical Plan: This is a 59-year-old woman with right knee osteoarthritis that is severe. She has been dealing with this for years and it compromises the quality of the life. She is scheduled for arthroplasty in November. I reviewed the radiographs with her and the procedure and discussed the risks, benefits and alternatives to surgery. I explained the risk of infection, dislocation, aseptic and septic loosening, need for additional surgery as well as stiffness or incomplete symptom resolution. I also described the medical complications associated with surgery such as blood clots and pulmonary emboli. She expressed understanding and we will proceed forward accordingly. Coding Level of Care Code Est Pt Level 4 (47652) Diagnoses Osteoarthritis of knees, bilateral M17.0
== END 2024-08-25 15:29 | disposition home or self-care (01) ==
PROVIDERS: PCP Internal Medicine; Visit Provider Orthopaedic Surgery
DX: M17.0 Bilateral primary osteoarthritis of knee (principal)
CPT/HCPCS: 99214

== ENCOUNTER → 2024-08-25 14:39 | Outpatient (BNVA) | payer OTHER, SELFPAY | PROVIDERS: PCP Internal Medicine; Visit Provider Orthopaedic Surgery ==

== ENCOUNTER 2024-10-06 09:34 | Outpatient (REF) | payer OTHER, SELFPAY ==
[2024-10-06 10:30] LABS: MANUAL DIFF FLAG NO
--- NOTE | 2024-10-06 10:44 | ECG_ITS ---
Test Reason : PRE OP Blood Pressure : / mmHG Vent. Rate : 055 BPM Atrial Rate : 055 BPM P-R Int : 160 ms QRS Dur : 088 ms QT Int : 428 ms P-R-T Axes : 052 043 028 degrees QTc Int : 409 ms Sinus bradycardia with sinus arrhythmia Otherwise normal ECG No previous ECGs available Referred By: Maggie Kaba Electronically Signed By:Arnold Jimenez
[2024-10-06 11:15] LABS: Basophils Absolute Auto 0.1 X10*3/uL (0.0-0.2); Basophils Percent Auto 0.7 % (0-2); Eosinophils Absolute Auto 0.3 X10*3/uL (0.0-0.4); Eosinophils Percent Auto 3.7 % (0-4); Hematocrit 43.8 % (37.0-47.0); Hemoglobin 14.8 g/dl (12.0-16.0); Imm Gran Abs Auto 0.05 X10*3/uL (0.00-0.03); Imm Gran Pct Auto 0.6 % (0.0-0.4); Lymphocytes Absolute Auto 2.1 X10*3/uL (1.2-4.9); Lymphocytes Percent Auto 25.6 % (20-40); Mean Corpuscular HGB Conc 33.8 g/dl (31.0-35.0); Mean Corpuscular Hemoglobin 29.2 pg (27.0-33.0); Mean Corpuscular Volume 86.4 fL (80.0-98.0); Mean Platelet Volume 11.7 fL (9.4-12.3); Monocytes Absolute Auto 0.8 X10*3/uL (0.1-1.2); Monocytes Percent Auto 9.4 % (2-11); Neutrophils Absolute Auto 4.8 x10*3/uL (2.0-8.3); Platelet Count 173 X10*3/uL (160-400); Red Blood Count 5.07 X10*6/uL (4.20-5.50); Red Cell Distribution Width 12.9 % (11.0-16.0); White Blood Count 8.1 X10*3/uL (4.8-10.8)
[2024-10-06 11:48] LABS: Alanine Aminotransferase 19 U/L (0-31); Alkaline Phosphatase 86 U/L (39-117); Anion Gap 11 (12-20); Aspartate Amino Transferase 24 U/L (5-31); Bilirubin Total 1.5 mg/dL (0.0-1.0); Blood Urea Nitrogen 22 mg/dL (9-16); Calcium 9.4 mg/dL (8.4-10.2); Carbon Dioxide 33 mmol/L (22-29); Chloride 106 mmol/L (96-108); Estimated Glomerular Filt Rate > 60; Glucose Fasting 105 mg/dL (60-99); Potassium 4.5 mmol/L (3.3-5.1); Sodium 145 mmol/L (135-145); Total Protein 6.7 g/dL (6.5-8.0)
== END 2024-10-06 09:35 | disposition home or self-care (01) ==
LOC: HO.LAB 09:34
PROVIDERS: PCP Internal Medicine; Visit Provider Internal Medicine
DX: Z01.818 Encounter for other preprocedural examination (principal); M17.0 Bilateral primary osteoarthritis of knee; D64.9 Anemia, unspecified
CPT/HCPCS: 36415; 80053; 85025; 93005

== ENCOUNTER 2024-10-06 09:34 | Outpatient (AMB) | payer OTHER, SELFPAY ==
--- NOTE | 2024-10-06 09:38 | MHC.PC.OV ---
Vital Signs 10/06/24 09:39 Height 5 ft 3 in Weight 242 lb BMI 42.9 BP 132/70 Blood Pressure Location Lt brachial Position Sitting Intake Visit Reasons: R DALE w/Dr. Mcdonald 12/03/24 Marketing Operations Consultant Required: No Accompanied by: Self / Same As Patient Allergies No Known Allergies [No Known Allergies*] Allergy (Verified 10/06/24 09:48) Medication List - Last Reconciled 10/06/24 by Maggie Kaba MD atenolol-chlorthalidone 100-25 mg 1 tab PO DAILY atorvastatin 20 mg PO BEDTIME 90 days blood pressure test kit-large As directed cholecalciferol (vitamin D3) (Vitamin D3) 25 mcg PO DAILY cyanocobalamin (vitamin B-12) 1,000 mcg PO DAILY 90 days diclofenac sodium 1% (Arthritis Pain (diclofenac)) 2 grams topical QID 30 days duloxetine 30 mg PO DAILY 90 days lisinopril 40 mg PO DAILY 90 days magnesium oxide 500 mg PO DAILY 90 days naproxen 500 mg PO BID PRN 30 days potassium chloride ER 8 mEq PO DAILY 3 days semaglutide (weight loss) (Wegovy) 0.25 mg (0.5 mL) subcut QWEEK 4 weeks walker Folding front wheeled walker Tobacco use date assessed: 05/29/24 Dental Screening Dental Screen Date: 05/29/24 HPI HPI Comments History of Present Illness Details The patient is a 59-year-old female presenting for preoperative evaluation of her planned left knee replacement surgery. The surgery was originally scheduled for November but has been postponed to December 17. The patient experiences significant knee pain, which has impacted her ability to cook and manage meals, leading to increased reliance on takeout food and portions. She has pre-existing osteoarthritis that necessitates surgical intervention. The patient manages her hypertension with atenolol-chlortalidone and lisinopril, and her hyperlipidemia with atorvastatin, having last seen well-controlled cholesterol levels in July. Despite efforts with a weight management program, her obesity persists as a concern, partly influenced by knee pain limiting physical activity. She does not have any medication allergies. There is a planned EKG and repeat fasting blood work to reassess the patient's prediabetes. She is going for a medium risk surgery and she has a medium risk patient. Has 5-7 Mets of ADLs. Mild major depression stable with duloxetine. [facility] Medical History (Updated 12/23/24 @ 10:51 by Maggie Kaba MD) Morbid obesity with BMI of 40.0-44.9, adult Obese Mixed hyperlipidemia Pernicious anemia Iron (Fe) deficiency anemia (~08/31/20) B12 deficiency anemia Hypovitaminosis D Essential hypertension Surgical History History of eye surgery History of Family History (Updated 10/06/24 @ 09:56 by Maggie Kaba MD) Father Hypertension COPD (chronic obstructive pulmonary disease) CAD (coronary artery disease) Mother Hypertension Maternal Grandmother Ovarian cancer Social History Housing: House Alcohol intake: current Alcohol intake frequency: holidays/special occasions only Alcohol type: beer and wine Patient Tobacco Use Status: Never used Tobacco e-Cigarette/Vaping Use: Never Used Second Hand Smoke Exposure: Yes service: No Current occupational status: employed 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 How often do you have a drink containing alcohol?: Monthly or less 2. How many drinks containing alcohol do you have on a typical day when you are drinking?: 1 or 2 3. How often do you have six or more drinks on one occasion?: Never Total Score: 1 Score Reviewed/Action Taken: No NEDRA-7 AMB Questionnaire NEDRA-7 Date NEDRA - 7 assessed: 05/29/24 Source: Developed by Drs. Rocky Palm, Dipti Solares, Shaka Crandall and colleagues, with an educational chio from [employer]. Review of Systems Const Details: - Respiratory: Denies chest pain, denies shortness of breath. - General: Reports knee pain affecting daily activities. Physical exam (Primary Care) Vital Signs: Last Vital Signs BP 132/70 10/06/24 09:39 BMI result Body Mass Index 42.9 BMI Assessment/Plan discussion: High BMI High, discussed plan: lifestyle, weight reduction, dietary and physical activity Tobacco/Smoking Status: Tobacco use Status Tobacco use date assessed 05/29/24 10/06/24 09:42 Patient Tobacco Use Status Never used Tobacco 10/06/24 09:42 e-Cigarette/Vaping Use Never Used 10/06/24 09:42 Thrive Assessment: Date of Thrive Assessment Date Thrive assessed 05/29/24 10/06/24 09:42 Const Other: General: No confusion Orientation/Consciousness: Patient oriented x3 and No confusion Head: Normal to inspection, Yes normocephalic and Yes atraumatic Respiratory: Normal respiratory effort, clear to auscultation bilaterally Cardiovascular: No jugular venous distension, regular rate, regular rhythm, S1 normal heart sound present and S2 normal heart sound present Neurology: Patient oriented x3, no focal motor deficits and No confusion Extremities: Full ROM,bilateral knee tenderness Coding Level of Care Code Est Pt Level 4 (43824) Complex EM visit Add On G2211 Diagnoses Pre-op evaluation Z01.818 Morbid obesity with BMI of 40.0-44.9, adult E66.01; Z68.41 Mild recurrent major depression F33.0 Primary osteoarthritis of both knees M17.0 Osteoarthritis type: primary Essential hypertension I10 Time Spent (min) 24 Assessment & Plan Assessment & Plan (1) Pre-op evaluation: Code(s): Z01.818 - Encounter for other preprocedural examination Category: Medical (2) Morbid obesity with BMI of 40.0-44.9, adult: Code(s): E66.01 - Morbid (severe) obesity due to excess calories; Z68.41 - Body mass index [BMI] 40.0-44.9, adult Category: Medical (3) Mild recurrent major depression: Code(s): F33.0 - Major depressive disorder, recurrent, mild Category: Medical (4) Osteoarthritis of knees, bilateral: Code(s): M17.0 - Bilateral primary osteoarthritis of knee Category: Medical Qualifiers: Osteoarthritis type: primary Qualified Code(s): M17.0 - Bilateral primary osteoarthritis of knee (5) Essential hypertension: Code(s): I10 - Essential (primary) hypertension Category: Medical Plan - Preoperative clearance for knee replacement surgery is in progress with EKG and fasting blood work scheduled. - Continue management of hypertension with atenolol-chlortalidone and lisinopril; these medications to be taken the morning of surgery with minimal water. - Maintain control of hyperlipidemia with atorvastatin. - Advise on dietary modifications post-Rema for better recovery outcomes; suggest reducing portion sizes and exploring affordable appetite-controlling supplements. - Ensure reassessment and management of prediabetes with upcoming blood work. - Encourage weight management and gentle exercises as tolerated to improve postoperative recovery. - Continue duloxetine for depression. Patient was informed and verbally consented to the use of an ambient scribe for clinic note documentation during this visit. I discussed with the patient the importance of taking only her blood pressure medications the morning of the surgery with minimal water. We reviewed her medical history, emphasizing the control of hypertension and hyperlipidemia, as well as the need to reassess her blood glucose levels. I informed her about continuing with weight management efforts to aid her recovery. We addressed her concerns regarding medication affordability, suggesting the use of affordable supplements as potential aids. I explained the plan for completing necessary diagnostic tests, including an EKG and fasting blood work, before proceeding with surgery. Orders: Orders Comprehensive [place]. Panel Fast Today M17.0 - Bilateral primary osteoarthritis of knee Complete Blood Count Auto Diff Today M17.0 - Bilateral primary osteoarthritis of knee Patient Instructions: - Take atenolol-chlortalidone and lisinopril with minimal water the morning of surgery. - Attend scheduled EKG and fasting blood work as soon as possible. - Continue to monitor blood pressure and cholesterol levels. - Work on portion control and healthier meal options post-holidays. - Engage in light exercise as tolerated. - Follow up with any changes in health or new symptoms immediately.
[2024-10-06 09:39] VITALS: BP 132/70; BMI 42.9
== END 2024-10-06 10:01 | disposition home or self-care (01) ==
PROVIDERS: PCP Internal Medicine; Visit Provider Internal Medicine
DX: Z01.818 Encounter for other preprocedural examination (principal); E66.01 Morbid (severe) obesity due to excess calories; Z68.41 Body mass index [BMI] 40.0-44.9, adult; F33.0 Major depressive disorder, recurrent, mild; M17.0 Bilateral primary osteoarthritis of knee; I10 Essential (primary) hypertension

== ENCOUNTER → 2024-10-06 10:44 | Outpatient (BNV) | payer OTHER, SELFPAY | PROVIDERS: PCP Internal Medicine; Visit Provider Internal Medicine Cardiovascular Disease | DX: R00.1 Bradycardia, unspecified (principal) | CPT/HCPCS: 93010 ==

== ENCOUNTER → 2024-11-25 12:48 | Outpatient (BNVA) | payer OTHER, SELFPAY | PROVIDERS: PCP Internal Medicine | DX: Z01.818 Encounter for other preprocedural examination (principal) ==

== ENCOUNTER 2024-12-11 09:13 | Outpatient (AMB) | payer BC, SELFPAY ==
--- NOTE | 2024-12-11 09:16 | A.OFFVIS_ITS ---
Vital Signs 12/11/24 09:24 Height 5 ft 3 in Weight 218 lb BMI 38.6 Intake Visit Reasons: Pre-Op: L TKA w/NE 12/17/24 Intake Note: Janina is a 59 year old female who presents today for a pre op appointment for her left total knee arthroplasty 12/17/24 NE. Patient was given a pain management consent form. Allergies No Known Allergies [No Known Allergies*] Allergy (Verified 12/11/24 09:25) HPI HPI Pre-Op: L TKA w/NE 12/17/24: Details: Ms. Heller is a 59-year-old female who presents to the office today for her history and physical appointment prior to undergoing a left total knee arthroplasty with Dr. Mcdonald scheduled on 12/17/2024. Patient does have history of iron-deficiency anemia, B12 deficiency anemia, low vitamin-D, sleep apnea, HLD and HTN. Patient has tried and failed all conservative treatment and continues to have left knee pain and difficulty with ambulation. This is affecting her quality of life and ability to perform activities of daily living. Therefore, she has consented to move forward with a left total knee arthroplasty with Dr. Mcdonald. [facility] Medical History (Updated 12/11/24 @ 10:35 by Francisca Malcolm PA-C) Habitual snoring Sleep apnea GERD (gastroesophageal reflux disease) Morbid obesity with BMI of 40.0-44.9, adult Obese Mixed hyperlipidemia Pernicious anemia Iron (Fe) deficiency anemia (~08/31/20) B12 deficiency anemia Hypovitaminosis D Essential hypertension Surgical History (Updated 12/11/24 @ 09:35 by Francisca Malcolm PA-C) H/O colonoscopy History of eye surgery History of Family History (Updated 10/06/24 @ 09:56 by Maggie Kaba MD) Father Hypertension COPD (chronic obstructive pulmonary disease) CAD (coronary artery disease) Mother Hypertension Maternal Grandmother Ovarian cancer Social History Housing: House Are you a primary school child care attendant to a significant other at home: No Do you presently have visiting nurse or other home services: No Alcohol intake: current Alcohol intake frequency: holidays/special occasions only Alcohol type: beer and wine Patient Tobacco Use Status: Never used Tobacco e-Cigarette/Vaping Use: Never Used Second Hand Smoke Exposure: Yes service: No Current occupational status: employed 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 occupational exposures/hazards: No Cognitive needs: No Hearing needs: No Vision needs: No Review of Systems Const All systems reviewed & are unremarkable except as noted in HPI and below Physical Exam Vital Signs: BMI result Body Mass Index 38.6 Const General: cooperative, healthy appearing and no acute distress Resp Effort & Inspection: normal respiratory effort and able to speak in complete sentences Cardio Rate: regular rate Peripheral pulses: Peripheral pulses 2+ throughout GI Palpation (GI): Soft to palpation Skin Lesions: no lesions Rashes: no rashes Extrem Other: Severe tenderness to palpation medial compartment right knee. Varus malalignment. Assessment & Plan Assessment & Plan (1) Osteoarthritis of left knee: Code(s): M17.12 - Unilateral primary osteoarthritis, left knee Category: Medical Plan Ms. Heller is a 59-year-old female who presents to the office today for her history and physical appointment prior to undergoing a left total knee arthroplasty with Dr. Mcdonald scheduled on 12/17/2024. Patient does have history of iron-deficiency anemia, B12 deficiency anemia, low vitamin-D, sleep apnea, HLD and HTN. Patient has tried and failed all conservative treatment and continues to have left knee pain and difficulty with ambulation. This is affecting her quality of life and ability to perform activities of daily living. Therefore, she has consented to move forward with a left total knee arthroplasty with Dr. Mcdonald. I discussed in detail the procedure and what to expect pre and post operatively. We discussed the risks, benefits and alternatives to the surgery as well as the rehabilitation course. The risks; which include, but are not limited to infection, bleeding, nerve injury, ongoing pain, swelling, and stiffness, perioperative risk of injury to bones and soft tissues, and blood clots. I?ve answered all questions and with their understanding they have consented to move forward with left total knee arthroplasty with Dr. Mcdonald. No contraindications with aspirin or Celebrex. Patient's will likely be in the waiting room on the day of surgery. If not, [employer] the patient's may be reached at [phone]. X-rays of the left knee were obtained while in the office today for preoperative planning. Orders: Orders XR knee RT 1V Today M25.569 - Pain in unspecified knee PT Evaluation and Treatment Today Z96.652 - Presence of left artificial knee joint XR knee LT 3V Today M25.569 - Pain in unspecified knee Medications: Refilled walker Folding front wheeled walker 1 ea 0RF Right knee arthritis G89.29 - Other chronic pain, M17.0 - Bilateral primary osteoarthritis of knee, M25.561 - Pain in right knee Coding Level of Care Code Global (99911) Diagnoses Osteoarthritis of left knee M17.12
[2024-12-11 09:24] VITALS: BMI 38.6
== END 2024-12-11 09:45 | disposition home or self-care (01) ==
PROVIDERS: PCP Internal Medicine; Visit Provider Physician Assistant
DX: M17.12 Unilateral primary osteoarthritis, left knee (principal)
CPT/HCPCS: 99024

== ENCOUNTER → 2024-12-11 09:17 | Outpatient (BNV) | payer BC, SELFPAY | PROVIDERS: Visit Provider Radiology Diagnostic Radiology | DX: M17.12 Unilateral primary osteoarthritis, left knee (principal); M25.562 Pain in left knee | CPT/HCPCS: 73562 ==

== ENCOUNTER 2024-12-11 10:24 | Outpatient (REF) | payer BC, SELFPAY ==
--- NOTE | ~2024-12-11 | XR_ITS ---
EXAMINATION: XR KNEE, LEFT CLINICAL INFORMATION: M25.569 - Pain in unspecified knee COMPARISON: None available. TECHNIQUE: Three views of the left knee. FINDINGS: Joint space narrowing involving the medial and lateral compartments and to a lesser extent the patellofemoral joint. There is sclerosis along the articular surface of the femoral condyles and tibial plateau involving mostly the medial compartment both knees. Marginal osteophyte formation femoral condyles tibial plateau and posterior superior and posterior inferior patella. Small volume suprapatellar bursa joint effusion. No acute cortical disruption or malalignment. No lytic or blastic lesions. XR/XR knee LT 3V IMPRESSION: Tricompartmental osteoarthrosis, severe, involving mostly the medial compartments of both knees. Electronically signed by: Dashawn Goff MD 12/11/2024 09:57 AM [facility]LL[facility] BULL
== END 2024-12-11 10:25 | disposition home or self-care (01) ==
LOC: HO.HOSX 10:24
PROVIDERS: Visit Provider Physician Assistant
DX: M25.569 Pain in unspecified knee (principal); M17.0 Bilateral primary osteoarthritis of knee
CPT/HCPCS: 73562

== ENCOUNTER 2024-12-17 05:54 | Day surgery (SDC) | payer BC, SELFPAY ==
[2024-11-12 10:28] VITALS: BP 146/70; PULSE 61; RESP 16; O2SAT 98; BMI 40.9
--- NOTE | 2024-11-12 10:52 | P.CONAN_ITS ---
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 Only limited by knee pain BMI 40 SY: Never diagnosed. Snores. No cpap GERD: famotadine prn PMFSH Active Problems Active Problems: All Active Problems Pre-op evaluation (Acute) Osteoarthritis of knees, bilateral (Acute) Hypokalemia (Acute) Mild recurrent major depression (Acute) Right knee pain (Acute) Left knee pain (Acute) Physical exam (Acute) Morbid obesity with BMI of 40.0-44.9, adult (Acute) Mixed hyperlipidemia (Acute) Pernicious anemia (Acute) Iron (Fe) deficiency anemia (Acute ~08/31/20) Hypovitaminosis D (Acute) Essential hypertension (Acute) Past Medical History Medical History Kidney stones Habitual snoring Sleep apnea GERD (gastroesophageal reflux disease) Morbid obesity with BMI of 40.0-44.9, adult Obese Mixed hyperlipidemia Pernicious anemia Iron (Fe) deficiency anemia (~08/31/20) B12 deficiency anemia Hypovitaminosis D Essential hypertension Family History Family History Father Hypertension COPD (chronic obstructive pulmonary disease) CAD (coronary artery disease) Mother Hypertension Maternal Grandmother Ovarian cancer Family history of problems with anesthesia: No Surgical History Surgical History H/O colonoscopy History of eye surgery History of History of Problems with Anesthesia: No Social History Social History Housing: House Are you a primary critical care nurse practitioner to a significant other at home: No Do you presently have visiting nurse or other home services: No Alcohol intake: current Alcohol intake frequency: holidays/special occasions only Alcohol type: beer and wine Patient Tobacco Use Status: Never used Tobacco e-Cigarette/Vaping Use: Never Used Second Hand Smoke Exposure: Yes Use of substances other than those prescribed or required for medical reasons: No Substance Use Type Other:: CBD Substance Use Frequency: Daily Have you been hit, kicked, punched, or otherwise hurt by someone within the past year? 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 occupational exposures/hazards: No Cognitive needs: No Hearing needs: No Vision needs: No Meds Allergies Allergy/AdvReac Type Severity Reaction Status Date / Time No Known Allergies Allergy Verified 12/11/24 09:25 [No Known Allergies*] Home Medications ?Medication ?Instructions ?Recorded ?Confirmed ?Last Taken ?Type famotidine 20 mg tablet 20 mg PO BEDTIME PRN Acid Reflux 11/12/24 11/25/24 Unknown History ibuprofen 200 mg tablet 800 mg PO DAILY 11/12/24 11/25/24 12/03/24 History Exam Height,Weight and Vital Signs: Height 5 ft 3 in Weight 104.78 kg Last Vital Signs Pulse 61 11/12/24 10:28 Resp 16 11/12/24 10:28 BP 146/70 H 11/12/24 10:28 Pulse Ox 98 11/12/24 10:28 O2 Del Method Room Air 11/12/24 10:28 Narrative Narrative: EKG 09/2024 Vent. Rate : 055 BPM Atrial Rate : 055 BPM P-R Int : 160 ms QRS Dur : 088 ms QT Int : 428 ms P-R-T Axes : 052 043 028 degrees QTc Int : 409 ms Sinus bradycardia with sinus arrhythmia Otherwise normal ECG No previous ECGs available Airway Mallampati Class: II TM Dist: >3cm Neck ROM: Full Loose/Missing/Broken Teeth: Yes (molar missing, crown molar x 1) Heart: RRR Lungs: CTAB Assessment and Plan Assessment Anesthesia Assessment: Anesthesia Plan Discussed and PAT Visit Final Anesthetic Review Family History of Problems with Anesthesia: No History of Problems with Anesthesia: No Documented by User: Nazanin Ortiz MD 12/17/24 08:51 PMFSH Past Medical History Medical History Kidney stones Habitual snoring Sleep apnea GERD (gastroesophageal reflux disease) Morbid obesity with BMI of 40.0-44.9, adult Obese Mixed hyperlipidemia Pernicious anemia Iron (Fe) deficiency anemia (~08/31/20) B12 deficiency anemia Hypovitaminosis D Essential hypertension Family History Family History Father Hypertension COPD (chronic obstructive pulmonary disease) CAD (coronary artery disease) Mother Hypertension Maternal Grandmother Ovarian cancer Surgical History Surgical History H/O colonoscopy History of eye surgery History of Social History Social History Housing: House Are you a primary critical care nurse practitioner to a significant other at home: No Do you presently have visiting nurse or other home services: No Alcohol intake: current Alcohol intake frequency: holidays/special occasions only Alcohol type: beer and wine Patient Tobacco Use Status: Never used Tobacco e-Cigarette/Vaping Use: Never Used Second Hand Smoke Exposure: Yes Use of substances other than those prescribed or required for medical reasons: No Substance Use Type Other:: CBD Substance Use Frequency: Daily Have you been hit, kicked, punched, or otherwise hurt by someone within the past year? 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 occupational exposures/hazards: No Cognitive needs: No Hearing needs: No Vision needs: No Meds Allergies Allergy/AdvReac Type Severity Reaction Status Date / Time No Known Allergies Allergy Verified 12/11/24 09:25 [No Known Allergies*] Home Medications ?Medication ?Instructions ?Recorded ?Confirmed ?Last Taken ?Type famotidine 20 mg tablet 20 mg PO BEDTIME PRN Acid Reflux 11/12/24 11/25/24 Unknown History ibuprofen 200 mg tablet 800 mg PO DAILY 11/12/24 11/25/24 12/03/24 History Assessment and Plan Assessment Anesthesia Assessment: Chart Reviewed Final Anesthetic Review ASA Class: III Final Preanesthetic Review: No Changes in Pt Med Stat, Meds/Allgs Chart Reviewed, Consent Obtained/Reviewed and Anes Risks/Benef Reviewed Patient Risk: Intermediate Procedure Risk: Intermediate Anesthetic Plan Anesthetic Plan: Spinal and Agree w/ Assess. and Plan Disposition: Standard PACU
[2024-11-12 12:58] LABS: MRSA Nasal PCR NEGATIVE (Negative); SA Nasal PCR NEGATIVE (Negative)
[2024-12-17] VITALS (13 sets, daily range): BP systolic 82–126; BP diastolic 35–75; PULSE 52–71; RESP 16–20; TEMP 35.9–36.6; O2SAT 96–100; BMI 38.7; BMI 40.7
--- NOTE | ~2024-12-17 | XR_ITS ---
EXAMINATION: XR KNEE, LEFT CLINICAL INFORMATION: s/p LTKA COMPARISON: December 11, 2024 TECHNIQUE: Two views of the left knee. FINDINGS: There is a metallic prosthesis with an femoral condyle and tibial plateau components well seated in the osseous structures with the cement. Normal alignment. Subcutaneous emphysema and skin sara in the anterior knee. XR/XR knee LT 2V IMPRESSION: Status post total left knee arthroplasty prosthesis. Overall satisfactory. Electronically signed by: Dashawn Goff MD 12/17/2024 10:18 AM [facility]
[2024-12-17 06:50] LABS: Anion Gap 13 (12-20); Blood Urea Nitrogen 32 mg/dL (9-16); Calcium 9.6 mg/dL (8.4-10.2); Carbon Dioxide 23 mmol/L (22-29); Chloride 108 mmol/L (96-108); Creatinine Clr Calc Pharmacy 83.9; Estimated Glomerular Filt Rate > 60; Glucose Fasting 125 mg/dL (60-99); Potassium 3.3 mmol/L (3.3-5.1); Sodium 141 mmol/L (135-145)
[2024-12-17 06:51] LABS: Hematocrit 43.1 % (37.0-47.0); Hemoglobin 14.8 g/dl (12.0-16.0); Mean Corpuscular HGB Conc 34.3 g/dl (31.0-35.0); Mean Corpuscular Hemoglobin 29.3 pg (27.0-33.0); Mean Corpuscular Volume 85.3 fL (80.0-98.0); Mean Platelet Volume 12.9 fL (9.4-12.3); Platelet Count 140 X10*3/uL (160-400); Red Blood Count 5.05 X10*6/uL (4.20-5.50); Red Cell Distribution Width 12.5 % (11.0-16.0); White Blood Count 6.7 X10*3/uL (4.8-10.8)
[2024-12-17] MEDS: Lactated Ringers 1,000 ML 100 ML IVCONT ×2 (07:08→20:28)
--- NOTE | 2024-12-17 07:39 | MHC.SHP ---
Pre-Procedural Eval Section A - 24 Hr Update-Section A only Date of Service: 12/17/24 The patient is an INPATIENT: No Changes since office visit: No Cold of Flu in the past 2 weeks, No New Medical Problems, No Changes in Medication and No Patient answered all questions The patient has been examined within 24 hours of the surgical procedure. The History & Physical has been completed within 30 days and I have reviewed it.: Yes Section B - Complete if H&P > 30 days Chief Complaint: Bilateral primary osteoarthritis of knee Allergies: Allergies Allergy/AdvReac Type Severity Reaction Status Date / Time No Known Allergies Allergy Verified 12/11/24 09:25 [No Known Allergies*] Plan I have reviewed the history and physical and performed a pertinent physical examination on my patient. No changes have occurred unless specified. Time Spent With Patient Time: Total time managing care of this patient today ____ minutes.
[2024-12-17] MEDS: ceFAZolin Sodium/Dextrose,Iso 2 GM/50 ML PIGGYBACK IV ×2 (07:46→13:38)
[2024-12-17] MEDS: Acetaminophen 1,000 MG/100 ML PIGGYBACK 400 MG IV (08:20)
--- NOTE | 2024-12-17 09:19 | PM.OP ---
Brief Operative Note Date of Service: 12/17/24 Pre-op diagnosis: left knee OA Post-op diagnosis: same Procedure: Left TKA Implants: [place] [employer] cemented posterior stabilized 12/16/15 Surgeon: Suleman Mcdonald MD Anesthesia: regional and spinal Was an Dental Detail Representative used for this Procedure?: Yes Dental Detail Representative: Francisca Malcolm Estimated blood loss (mL): 25 Tourniquet time (min): 70 IV fluids (mL): 850 Pathology: other Condition: stable Disposition: PACU
[2024-12-17] MEDS: ondansetron HCL 4 MG/2 ML VIAL IVPUSH (10:05)
[2024-12-17] MEDS: oxyCODONE HCl ER 10 MG TAB.ER.12H PO ×2 (12:16→20:22)
[2024-12-17] MEDS: Docusate Sodium 100 MG CAPSULE PO ×2 (12:17→20:22)
[2024-12-17] MEDS: Celecoxib 200 MG CAPSULE PO ×2 (12:17→20:22)
[2024-12-17] MEDS: oxyCODONE HCl Immed Release 5 MG TABLET PO (13:34)
--- NOTE | 2024-12-17 13:48 | PHA.MEDREC ---
Pharmacy Consult ? Medication Reconciliation Pharmacy has reviewed the medication reconciliation completed by nursing.
--- NOTE | 2024-12-17 13:49 | PHA.MEDREC ---
Addendum entered by Cali Davis RP 12/17/24 14:50: MED REC CHECKED BY [facility] Original Note: Pharmacy Consult ? Medication Reconciliation Pharmacy has completed the medication reconciliation. Spoke with patient to confirm. She was using OTC ibuprofen 800 mg total every day for the pain. She switched to tylenol 1000 mg daily 2 weeks ago due to surgery.
[2024-12-17] MEDS: Cholecalciferol (Vitamin D3) 25 MCG TABLET PO (14:33)
[2024-12-17] MEDS: lisinopriL 40 MG TABLET PO (14:33)
[2024-12-17] MEDS: Cyanocobalamin (Vitamin B-12) 1,000 MCG TABLET 1000 MCG PO (14:33)
[2024-12-17] MEDS: HYDROmorphone HCl 0.5 MG/0.5 ML SYRINGE 0.25 MG IVPUSH ×2 (17:37→21:34)
[2024-12-17] MEDS: Atorvastatin Calcium 20 MG TABLET PO (20:22)
[2024-12-17] MEDS: Famotidine 20 MG TABLET PO (20:28)
--- NOTE | 2024-12-17 22:32 | P.CONHOSP_ITS ---
History of Present Illness Data of Consult Service Date: 12/17/24 Primary Care Provider: Maggie Kaba MD HPI Reason for consult: Medical management Pt is a 59-year-old female with a PMH significant for HTN, HLD, and GERD who was admitted to the hospital under orthopedic services for elective left TKA. POD0. Pt seen and evaluated in her room where she reports pain well managed with current analgesic regimen. Has been up and out of bed a few times already to go to the bathroom. Has yet to be seen and evaluated by Physical therapy for stairs. Pt denies any other acute medical complaints. No numbness or tingling in extremities. Denies shortness or breath or difficulty breathing. No chest pain/pressure, palpitations. No fever, chills, nausea, vomiting, abdominal pain. Vitals reviewed, stable and WNL. pt is satting 98% on RA. Review of Systems 2 Review of Systems: Pt has no acute medical complaints at this time. Pain in left knee well- controlled. PENDING SALE TO [facility] Medical History Kidney stones Habitual snoring Sleep apnea GERD (gastroesophageal reflux disease) Morbid obesity with BMI of 40.0-44.9, adult Obese Mixed hyperlipidemia Pernicious anemia Iron (Fe) deficiency anemia (~08/31/20) B12 deficiency anemia Hypovitaminosis D Essential hypertension Family History Father Hypertension COPD (chronic obstructive pulmonary disease) CAD (coronary artery disease) Mother Hypertension Maternal Grandmother Ovarian cancer Surgical History H/O colonoscopy History of eye surgery History of Social History Household Members: Spouse Housing: House Are you a primary primary care sales representative to a significant other at home: No Do you presently have visiting nurse or other home services: No Alcohol intake: current Alcohol intake frequency: holidays/special occasions only Alcohol type: beer and wine Patient Tobacco Use Status: Never used Tobacco e-Cigarette/Vaping Use: Never Used Second Hand Smoke Exposure: Yes service: No Current occupational status: employed 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 occupational exposures/hazards: No Cognitive needs: No Hearing needs: No Vision needs: No Meds Allergies Allergy/AdvReac Type Severity Reaction Status Date / Time No Known Allergies Allergy Verified 12/11/24 09:25 [No Known Allergies*] Active Medications: Current Medications Acetaminophen (Acetaminophen 325 Mg Tablet) 650 mg PO Q6H PRN PRN Reason: Pain, Mild 1-3,fever,headache Aspirin (Aspirin 325 Mg Tablet) 325 mg PO BID [facility] Atenolol (Atenolol 100 Mg Tablet) 100 mg PO DAILY [facility] Last Admin: 12/17/24 14:02 Dose: Not Given Atorvastatin Calcium (Atorvastatin Calcium 20 Mg Tablet) 20 mg PO BEDTIME [facility] Last Admin: 12/17/24 20:22 Dose: 20 mg Celecoxib (Celecoxib 200 Mg Capsule) 200 mg PO BID [facility] Last Admin: 12/17/24 20:22 Dose: 200 mg Cyanocobalamin (Cyanocobalamin (Vitamin B-12) 1,000 Mcg Tablet) 1,000 mcg PO DAILY [facility] Last Admin: 12/17/24 14:33 Dose: 1,000 mcg Docusate Sodium (Docusate Sodium 100 Mg Capsule) 100 mg PO BID [facility] Last Admin: 12/17/24 20:22 Dose: 100 mg Famotidine (Famotidine 20 Mg Tablet) 20 mg PO BEDTIME PRN PRN Reason: Acid Reflux Last Admin: 12/17/24 20:28 Dose: 20 mg Hydrochlorothiazide (Hydrochlorothiazide 25 Mg Tablet) 25 mg PO DAILY [facility] Last Admin: 12/17/24 14:01 Dose: Not Given Hydromorphone HCl (Hydromorphone Hcl 0.5 Mg/0.5 Ml Syringe) 0.25 mg IVPUSH Q4H PRN; Protocol PRN Reason: Pain, Severe (Pain Scale 7-10) Last Admin: 12/17/24 21:34 Dose: 0.25 mg Lactated Ringer's (Lr) 1,000 mls @ 100 mls/hr IVCONT .Q10H [facility] Last Admin: 12/17/24 20:28 Dose: 100 mls/hr Lisinopril (Lisinopril 40 Mg Tablet) 40 mg PO DAILY [facility]; Protocol Last Admin: 12/17/24 14:33 Dose: 40 mg Magnesium Hydroxide (Milk Of Magnesia 30 Ml Oral.Susp) 30 ml PO DAILY PRN PRN Reason: Constipation Magnesium Oxide (Magnesium Oxide 400 Mg Tablet) 400 mg PO DAILY [facility] Naloxone HCl (Naloxone Hcl 0.4 Mg/Ml Vial) 0.04 mg IVPUSH Q5M PRN PRN Reason: Excessive sedation or RR < 8 Ondansetron HCl (Ondansetron Hcl 4 Mg/2 Ml Vial) 4 mg IVPUSH Q8H PRN PRN Reason: Nausea and Vomiting Oxycodone HCl (Oxycodone Hcl Immed Release 5 Mg Tablet) 5 mg PO Q4H PRN PRN Reason: Pain, Moderate(Pain Scale 4-6) Last Admin: 12/17/24 13:34 Dose: 5 mg Oxycodone HCl (Oxycodone Hcl Er 10 Mg Tab.Er.12h) 10 mg PO BID [facility] Last Admin: 12/17/24 20:22 Dose: 10 mg Sodium Chloride (0.9 % Sodium Chloride Flush 3 Ml Syringe) 3 ml IVFLUSH QSHIFT [facility] Last Admin: 12/17/24 17:05 Dose: Not Given Vitamin D (Cholecalciferol (Vitamin D3) 25 Mcg Tablet) 25 mcg PO DAILY [facility] Last Admin: 12/17/24 14:33 Dose: 25 mcg Home Medications ?Medication ?Instructions ?Recorded ?Confirmed ?Last Taken ?Type famotidine 20 mg tablet 20 mg PO BEDTIME PRN Acid Reflux 11/12/24 11/25/24 Unknown History ibuprofen 200 mg tablet 800 mg PO DAILY 11/12/24 11/25/24 12/03/24 History acetaminophen 500 mg tablet 1,000 mg PO DAILY 12/17/24 12/17/24 12/16/24 History Physical Exam 2 Vital Signs and Narrative: Vital Signs: Last Vital Signs Temp 96.9 F 12/17/24 19:02 Pulse 69 12/17/24 19:02 Resp 20 12/17/24 19:02 BP 126/74 12/17/24 19:02 Pulse Ox 98 12/17/24 19:02 O2 Del Method Room Air 12/17/24 19:02 BMI result Body Mass Index 40.7 General: AOx3, no acute distress Resp: CTA bilaterally CVS: S1, S2, RRR GI: +BS, NT, no distention Skin: Warm, dry Neuro: Cranial nerves II-XII grossly intact bilaterally. Motor grossly intact bilaterally Extremities: No edema. Left knee wrapped in clean bandages. Psych: Appropriate affect Results Labs 12/17/24 06:30 12/17/24 06:30 Labs: Laboratory Results - last 24 hr 12/17/24 06:30 MCV 85.3 MCH 29.3 MCHC 34.3 RDW 12.5 Plt Count 140 L MPV 12.9 H Absolute Nucleated RBC 0.000 Nucleated RBC % (auto) 0.0 Anion Gap 13 Estim Creat Clear Calc 83.9 Estimated GFR > 60 Fasting Glucose 125 H Calcium 9.6 Imaging Radiologist's Impressions: Impressions Knee X-Ray 12/17/24 07:54 IMPRESSION: Status post total left knee arthroplasty prosthesis. Overall satisfactory. Electronically signed by: Dashawn Goff MD 12/17/2024 10:18 AM EST Assessment and Plan (1) Status post total left knee replacement: Status: Acute Plan Pt is a 59-year-old female with a PMH significant for HTN, HLD, and GERD who was admitted to the hospital under orthopedic services for elective left TKA. POD0. Pt seen and evaluated in her room where she reports pain well managed with current analgesic regimen. Left TKA POD0 Pain well-controlled Plan as per Orthopedics HTN Currently well-controlled Continue hydrochlorothiazide, lisinopril HLD Continue statin GERD Continue famotidine Pt otherwise stable and with no acute medical complaints. Will sign off for now. Thank you for allowing us to participate in the care of this pt. Please re-consult if any acute issue or need arises.
[2024-12-18] MEDS: oxyCODONE HCl Immed Release 5 MG TABLET PO (01:08)
[2024-12-18] MEDS: HYDROmorphone HCl 0.5 MG/0.5 ML SYRINGE 0.25 MG IVPUSH ×2 (01:36→07:04)
[2024-12-18 03:08] VITALS: BP 100/56; PULSE 60; RESP 16; TEMP 36.5; O2SAT 97
[2024-12-18] MEDS: Lactated Ringers 1,000 ML 100 ML IVCONT (05:31)
[2024-12-18 06:38] LABS: MANUAL DIFF FLAG NO
[2024-12-18 06:47] LABS: Basophils Percent Auto 0.2 % (0-2); Eosinophils Percent Auto 0.2 % (0-4); Hematocrit 38.4 % (37.0-47.0); Imm Gran Abs Auto 0.08 X10*3/uL (0.00-0.03); Imm Gran Pct Auto 0.6 % (0.0-0.4); Lymphocytes Percent Auto 7.7 % (20-40); Mean Corpuscular HGB Conc 33.9 g/dl (31.0-35.0); Mean Corpuscular Hemoglobin 29.1 pg (27.0-33.0); Mean Corpuscular Volume 86.1 fL (80.0-98.0); Mean Platelet Volume 13.3 fL (9.4-12.3); Monocytes Absolute Auto 0.9 X10*3/uL (0.1-1.2); Neutrophils Absolute Auto 10.7 x10*3/uL (2.0-8.3); Neutrophils Percent Auto 84.3 % (45-73); Platelet Count 127 X10*3/uL (160-400); Red Blood Count 4.46 X10*6/uL (4.20-5.50); Red Cell Distribution Width 12.6 % (11.0-16.0); White Blood Count 12.7 X10*3/uL (4.8-10.8)
[2024-12-18 07:04] LABS: Anion Gap 10 (12-20); Blood Urea Nitrogen 24 mg/dL (9-16); Calcium 9.1 mg/dL (8.4-10.2); Carbon Dioxide 26 mmol/L (22-29); Chloride 108 mmol/L (96-108); Creatinine Clr Calc Pharmacy 89.6; Estimated Glomerular Filt Rate > 60; Glucose Fasting 99 mg/dL (60-99); Potassium 4.4 mmol/L (3.3-5.1); Sodium 140 mmol/L (135-145)
[2024-12-18 07:38] VITALS: BP 135/61; PULSE 59; RESP 18; TEMP 36.5; O2SAT 97
--- NOTE | 2024-12-18 07:39 | HO.POSTANES ---
Post Anesthesia Evaluation Post Anesthesia Evaluation Date of Service: 12/18/24 Vital Signs: Vital Signs Temp Pulse Resp BP Pulse Ox O2 Del Method 12/18/24 03:08 97.7 F 60 16 100/56 L 97 Room Air Anesthesia: Spinal and Nerve Block (left adductor canal and left ipack) Mental Status: Awake Pain Control: Satisfactory Nausea/Vomiting: None Hydration: Adequate Anesthesia-Related Issues: No Anes. Related Issues
[2024-12-18] MEDS: atenoloL 100 MG TABLET PO (08:17)
[2024-12-18] MEDS: Cyanocobalamin (Vitamin B-12) 1,000 MCG TABLET 1000 MCG PO (08:17)
[2024-12-18] MEDS: Cholecalciferol (Vitamin D3) 25 MCG TABLET PO (08:17)
[2024-12-18] MEDS: Docusate Sodium 100 MG CAPSULE PO (08:17)
[2024-12-18] MEDS: hydroCHLOROthiazide 25 MG TABLET PO (08:18)
[2024-12-18] MEDS: lisinopriL 40 MG TABLET PO (08:18)
[2024-12-18] MEDS: Magnesium Oxide 400 MG TABLET PO (08:18)
[2024-12-18] MEDS: Celecoxib 200 MG CAPSULE PO (08:18)
[2024-12-18] MEDS: oxyCODONE HCl ER 10 MG TAB.ER.12H PO (08:18)
--- NOTE | 2024-12-18 08:49 | PM.DS ---
DS: Providers Provider Date of Service: 12/18/24 Date of discharge: 12/18/24 Primary care physician: Maggie Kaba MD Consults: 12/17/24 11:48 Consult to Hospitalist Routine Comment: [place] [facility] Reason For Exam: routine medical management DS: Diagnosis Discharge Diagnosis (1) Status post total left knee replacement: Status: Acute DS: Summary Hospital Course Hospital Course: The patient underwent a successful left total knee arthroplasty on 12/17/34 [facility], was transferred to PACU and then to the floor to recover. During their stay, their vitals were stable, afebrile at 97.7. Labs were unremarkable, H/H 13.0/38.4. POD 1 she was started on ASA 325mg tabs po bid for DVT ppx, they also received Physical Therapy services twice a day. Physical therapy should include gait training, ROM to tolerance and quad strength. He is WBAT. Prior to discharge, his dressing was changed, incision clean dry and intact, new Aquacel dressing applied. The Aquacel dressing should remain intact and dry at all times. Any concerns with the dressing, please contact orthopedic office. No showering. The plan is to be discharged home with vna Time Attestation Discharge Coordination Time (in mins): 30 Quality: Safe Use of Opioids Does Pt have an Active Cancer Diagnosis on the Problem List?: No Quality: Stroke Does the patient have a stroke diagnosis?: No Physical Exam Vital Signs: Vital Signs: Last Vital Signs Temp 97.7 F 12/18/24 07:38 Pulse 59 12/18/24 07:38 Resp 18 12/18/24 07:38 BP 135/61 12/18/24 07:38 Pulse Ox 97 12/18/24 07:38 O2 Del Method Room Air 12/18/24 07:38 BMI result Body Mass Index 40.7 DS: Data Data Completed and Pending Pending studies at discharge: Pending at discharge 12/17/24 09:01 Surgical [PTH] Routine Labs on day of discharge: Laboratory Results - last 24 hr 12/18/24 05:33 WBC 12.7 H RBC 4.46 Hgb 13.0 Hct 38.4 MCV 86.1 MCH 29.1 MCHC 33.9 RDW 12.6 Plt Count 127 L MPV 13.3 H Immature Gran % (Auto) 0.6 H Neut % (Auto) 84.3 H Lymph % (Auto) 7.7 L [place] % (Auto) 7.0 Eos % (Auto) 0.2 Baso % (Auto) 0.2 Lymph # (Auto) 1.0 L [place] # (Auto) 0.9 Eos # (Auto) 0.0 Baso # (Auto) 0.0 Abs Immat Gran (auto) 0.08 H Absolute Neuts (auto) 10.7 H Absolute Nucleated RBC 0.000 Nucleated RBC % (auto) 0.0 Sodium 140 Potassium 4.4 D Chloride 108 Carbon Dioxide 26 Anion Gap 10 L BUN 24 H Creatinine 0.80 Estim Creat Clear Calc 89.6 Estimated GFR > 60 Fasting Glucose 99 Calcium 9.1 Discharge Plan Discharge Patient Disposition: Home Health Service Referrals: Francisca Malcolm PA-C [Physician Energy Broker] - 2 Weeks (01/01/25 14:45 [facility] [place] [facility] Francisca Malcolm PA-C[place] Discharge Medications: New docusate sodium 100 mg Capsule 100 mg PO BID 7 Days Qty: 14 0RF celecoxib 200 mg Capsule 200 mg PO BID 30 Days Qty: 60 0RF aspirin 325 mg Tablet 325 mg PO BID 42 Days Qty: 84 0RF oxycodone 5 mg Tablet 5 mg PO Q4H PRN (Reason: Pain, Moderate(Pain Scale 4-6)) 7 Days Qty: 42 0RF Rx Instructions: Partial Fill upon patient request. acetaminophen 325 mg Tablet 650 mg PO Q6H PRN (Reason: Pain, Mild 1-3,Fever,Headache) 30 Days Qty: 240 0RF Continued cyanocobalamin (vitamin B-12) 1,000 mcg tablet, sublingual 1,000 mcg PO DAILY 90 Days Qty: 90 3RF magnesium oxide 500 mg capsule 500 mg PO DAILY 90 Days Qty: 90 3RF cholecalciferol (vitamin D3) [Vitamin D3] 25 mcg (1,000 unit) capsule 25 mcg PO DAILY Qty: 30 0RF atorvastatin 20 mg tablet 20 mg PO BEDTIME 90 Days Qty: 90 2RF lisinopril 40 mg tablet 40 mg PO DAILY 90 Days Qty: 90 1RF atenolol-chlorthalidone 100-25 mg tablet 1 tab PO DAILY Qty: 90 0RF famotidine 20 mg Tablet 20 mg PO BEDTIME PRN (Reason: Acid Reflux) (DME) blood pressure test kit-large Kit See Rx Instructions .ROUTE .MEDSUPPLY Qty: 1 0RF Rx Instructions: As directed (DME) walker [facility] See Rx Instructions .ROUTE .MEDSUPPLY Qty: 1 0RF Rx Instructions: Folding front wheeled walker Discontinued ibuprofen 200 mg Tablet 800 mg PO DAILY acetaminophen 500 mg Tablet 1,000 mg PO DAILY Discharge Orders: Discharge Order (Routine); Ordered 12/18/24 Ordered By: Eddie Fu Diet: Regular diet Activity on Discharge: Use cane or walker Activity Restrictions/Additional Instructions: Physical Therapy for Total knee arthroplasty: WBAT, gait training, ROM 0-12, quad strength Limit stair climbing No showering, no tub bath-keep dressing clean, dry and intact No driving x6 weeks Continue Aspirin twice a day x 6 weeks [place] [facility]: Print Language: Indonesian
--- NOTE | 2024-12-18 08:50 | P.F2F_ITS ---
Service Date Service Date: 12/18/24 Encounter Date of encounter: 12/18/24 Reasons for Services Signs and symptoms assessed: Weakness, poor balance, poor gait mechanics Reason for physical therapy: home safety and mobility, therapeutic exercises, restore joint function, gait/transfer training, ADL training and energy conservation Reason for occupational therapy: home safety and mobility, therapeutic exercises, restore joint function, gait/transfer training, ADL training and energy conservation Overseeing Care: Suleman Mcdonald Homebound: Leaving the home is medically contraindicated at this time without the asist of a device and/or another person due th the listed conditions above and below. Reason homebound: unsteady gait / fall risk, poor balance / fall risk, shortness of breath at rest and unable to drive Homebound supporting statement: Pt. is considered home bound due to recent surgery. Unable to drive, poor balance, poor gait mechanics. Certification: Based on the above findings, I certify that this patient is confined to the home and needs intermittent half-way care, physical therapy and/or speech therapy, or continues to need occupational therapy. The patient is under my care, and I have initiated the establishment of the plan of care. The patient will be followed by a physician who will periodically review the plan of care. Time Spent With Patient Time: Total time managing care of this patient today ____ minutes.
--- NOTE | 2024-12-18 09:14 | MHC.CM.PN ---
Patient lives in a home w/ her . 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 Has a walker to use post-op. PCP Maggie Kaba MD Reports she has an HCP naming her as [facility]. DP: Home w/ new [facility] for PT. Medically cleared for dc. at bedside to transport.
--- NOTE | 2024-12-28 16:02 | W.PM.OPN ---
Operative Note Operative Note Date of Service: 12/17/24 Narrative: Date of Service: 12/17/24 Pre-op diagnosis: left knee OA Post-op diagnosis: same Procedure: Left TKA Implants: [place] [employer] cemented posterior stabilized 12/15/TS/29a Surgeon: Suleman Mcdonald MD Anesthesia: regional and spinal Was an Airport Ramp Attendant used for this Procedure?: Yes Airport Ramp Attendant: Francisca Malcolm Estimated blood loss (mL): 25 Tourniquet time (min): 70 IV fluids (mL): 850 Pathology: other Condition: stable Disposition: PACU Procedure in detail: The patient was brought to the operating room and prepped and draped in standard sterile fashion. A time-out was called to identify proper site proper procedure proper surgeon and IV antibiotics were administered. 1 g of IV tranexamic acid was administered. I began by making a midline incision to the retinaculum and performed a medial parapatellar arthrotomy. The patella was translated laterally and the knee was flexed up. There was tricompartmental disease (end stage). I performed a small medial peel and resected the infrapatellar fat pad. Allen's line was then used to drill my intramedullary femoral guide and my distal femur cut of 12 mm (10 deg flexion contracture) was made in 5 degrees of valgus while protecting the soft tissues. I then measured a # 3 femur and placed my cutting guide in 3deg ER and made my anterior posterior and chamfer cuts protecting the soft tissues at all times. I then made my box but removing the PCL. Once I was satisfied with my cuts I turned my attention to the tibia. I removed the meniscus medially and laterally and , using an external cutting guide, in line with the tibial crest and the third ray, I made my distal tibial cut in 0 deg slope of while protecting the posterior soft tissues at all times. An extension block was used to confirm appropriate amount of bony resection. I then sized a #3tibia and once I was satisfied that there was complete tibial coverage I placed my trial and with the trial femur in place took the knee through range of motion. I was satisfied with the extension and flexion as well as the balance at 0, 30 and 90 degrees. I then turned my attention to the patella where I removed 1 cm from the undersurface of the patella and then trialed a 29a patellar button. Again the knee was taken through range of motion I was satisfied with the tracking. I then prepared the tibia with a drill and punch. A femoral bone plug was placed and the knee was irrigated copiously. Two bags of [place] bone cement were mixed on the back table using 3rd gen cementation techniques. I then cemented the patella, tibia and femur in standard fashion. Axial compression and a clamp were used while the cement dried. Once the cement was hard on the back table all excess cement was removed and I trialed different inserts until I selected a #16TS insert. The final insert was placed. I irrigated copiously and local TXA was administered. The knee was then closed with a running Quill suture, a 3 0 Vicryl and sara on the skin. Patient was then placed in sterile dressing and brought to recovery room in stable condition there were no known complications.
== END 2024-12-18 10:12 | disposition home health service (06) ==
LOC: HO.SSS 07:57 → HO.S3 11:36
PROVIDERS: Nurse Practitioner; Physician Assistant; PCP Internal Medicine; Visit Provider Orthopaedic Surgery
PROC: (CPT 27447; principal; 2024-12-17 07:30)
DX: M17.12 Unilateral primary osteoarthritis, left knee (principal); G89.29 Other chronic pain; M25.562 Pain in left knee; I10 Essential (primary) hypertension; E78.2 Mixed hyperlipidemia; D51.0 Vitamin B12 deficiency anemia due to intrinsic factor deficiency; D50.9 Iron deficiency anemia, unspecified; E55.9 Vitamin D deficiency, unspecified; K21.9 Gastro-esophageal reflux disease without esophagitis; F33.0 Major depressive disorder, recurrent, mild; G47.30 Sleep apnea, unspecified; E66.01 Morbid (severe) obesity due to excess calories; Z68.41 Body mass index [BMI] 40.0-44.9, adult; Z79.1 Long term (current) use of non-steroidal anti-inflammatories (NSAID); Z79.899 Other long term (current) drug therapy
CPT/HCPCS: 27447; 36415; 73560; 80048; 85025; 85027; 86850; 86900; 86901; 87640; 87641; 88305; 88311; 97116; 97161; 97530; C1713; C1776; J0131; J0665; J0690; J1100; J1171; J2003; J2250; J2371; J2405; J2704; J7120

== ENCOUNTER → 2024-12-17 05:54 | Outpatient (BNV) | payer BC, SELFPAY | PROVIDERS: PCP Internal Medicine; Visit Provider Orthopaedic Surgery | DX: Z47.1 Aftercare following joint replacement surgery (principal); Z96.652 Presence of left artificial knee joint | CPT/HCPCS: 27447; 99024; G0180 ==

== ENCOUNTER → 2024-12-17 05:54 | Outpatient (BNV) | payer BC, SELFPAY | PROVIDERS: PCP Internal Medicine; Visit Provider Student in an Organized Health Care Education/Training Program | DX: I10 Essential (primary) hypertension (principal); Z96.652 Presence of left artificial knee joint | CPT/HCPCS: 99221 ==

== ENCOUNTER → 2024-12-17 07:54 | Outpatient (BNV) | payer BC, SELFPAY | PROVIDERS: PCP Internal Medicine; Visit Provider Radiology Diagnostic Radiology | DX: M17.12 Unilateral primary osteoarthritis, left knee (principal); Z96.652 Presence of left artificial knee joint | CPT/HCPCS: 73560 ==

== ENCOUNTER 2025-01-01 14:34 | Outpatient (AMB) | payer BC, SELFPAY ==
--- NOTE | 2025-01-01 14:41 | MHC.OFFVIS ---
Intake Visit Reasons: 2WK PO: L TKA w/NE 12/17/24 Intake Note: Janina is a 59 year old female who presents today for a post op appointment s/p left total knee arthroplasty 12/17/24 NE. Patient reports - . Allergies No Known Allergies [No Known Allergies*] Allergy (Verified 12/11/24 09:25) HPI HPI 2WK PO: L TKA w/NE 12/17/24: Details: Ms. Heller is a 59-year-old female who presents to the office today status post left total knee arthroplasty with Dr. Mcdonald on 12/17/2024. Overall she is doing very well. She has been working with physical therapy [facility]. She was going to attend an outside facility for physical therapy due to needing later appointment slots however the office is not gotten back to her. Therefore, she would like a new order to be placed for core here at the hospital. Her pain is well managed. She is using a walker to assist with ambulation. [facility] Medical History Kidney stones Habitual snoring Sleep apnea GERD (gastroesophageal reflux disease) Morbid obesity with BMI of 40.0-44.9, adult Obese Mixed hyperlipidemia Pernicious anemia Iron (Fe) deficiency anemia (~08/31/20) B12 deficiency anemia Hypovitaminosis D Essential hypertension Surgical History H/O colonoscopy History of eye surgery History of Family History Father Hypertension COPD (chronic obstructive pulmonary disease) CAD (coronary artery disease) Mother Hypertension Maternal Grandmother Ovarian cancer Social History Household Members: Spouse Housing: House Are you a primary day care provider to a significant other at home: No Do you presently have visiting nurse or other home services: No Alcohol intake: current Alcohol intake frequency: holidays/special occasions only Alcohol type: beer and wine Patient Tobacco Use Status: Never used Tobacco e-Cigarette/Vaping Use: Never Used Second Hand Smoke Exposure: Yes service: No Current occupational status: employed 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 Sara intact. No surrounding erythema or drainage. No signs of infection. Range of motion is 10-110 degrees. Calf is supple and nontender. NVI. Assessment & Plan Assessment & Plan (1) Status post total left knee replacement: Code(s): Z96.652 - Presence of left artificial knee joint Category: Surgical Plan Ms. Heller is a 59-year-old female who presents to the office today status post left total knee arthroplasty with Dr. Mcdonald on 12/17/2024. Overall she is doing very well. She has been working with physical therapy through the [facility]. She was going to attend an outside facility for physical therapy due to needing later appointment slots however the office is not gotten back to her. Therefore, she would like a new order to be placed for core here at the hospital. Her pain is well managed. She is using a walker to assist with ambulation. While in the office today sara removed and Steri-Strips were applied. I have updated the physical therapy order for the patient to attend core rehab here at the hospital. She is agreeable to attend. Her last home [facility] is tomorrow 01/02/2025. I will have our emergency medical service manager reach out to physical therapy to try and obtain a sooner appointment so there is not a long lapse in time between [facility] discontinuing an outpatient therapy beginning. She will remain on her anticoagulant for 6 weeks postoperatively. She will follow up in [address] Mcdonald, sooner if needed. Coding Level of Care Code Global (43323) Diagnoses Status post total left knee replacement Z96.652
== END 2025-01-01 14:58 | disposition home or self-care (01) ==
LOC: HO.HOS 14:35
PROVIDERS: PCP Internal Medicine; Visit Provider Physician Assistant
DX: Z96.652 Presence of left artificial knee joint (principal)
CPT/HCPCS: 99024

== ENCOUNTER → 2025-01-01 14:34 | Outpatient (BNVA) | payer BC, SELFPAY | PROVIDERS: PCP Internal Medicine; Visit Provider Physician Assistant ==

== ENCOUNTER 2025-01-22 11:52 | Outpatient (REF) | payer BC, SELFPAY ==
--- NOTE | ~2025-01-22 | XR_ITS ---
EXAMINATION: XR KNEE, LEFT CLINICAL INFORMATION: M25.562 - Pain in left knee COMPARISON: 12/17/2024, 12/11/2024. TECHNIQUE: AP view bilateral knees standing, lateral and patellofemoral views left knee. FINDINGS: Right Knee: No fracture or dislocation. Severe medial and lateral compartment joint space narrowing with [id number]-vi-[id number] appearance. Marginal osteophytic spurs. Normal soft tissues. Left Knee: Total left knee arthroplasty noted. Femoral and tibial components are intact, well seated, in anatomic alignment. There is been associated patellar resurfacing. There is no evidence of periprosthetic fracture or lucency. No bone lesions. There is a small joint effusion present. No soft tissue abnormalities. XR/XR knee LT 3V IMPRESSION: 1. Post left total knee replacement without complication. Small joint effusion. 2. Severe medial and lateral compartment osteoarthritis right knee. Electronically signed by: Blade Wheeler MD 01/23/2025 08:25 AM EDT
== END 2025-01-22 11:53 | disposition home or self-care (01) ==
LOC: HO.HOSX 11:52
PROVIDERS: Visit Provider Orthopaedic Surgery
DX: M25.562 Pain in left knee (principal)
CPT/HCPCS: 73562

== ENCOUNTER 2025-01-22 14:33 | Outpatient (AMB) | payer BC, SELFPAY ==
--- NOTE | 2025-01-22 14:46 | A.OFFVIS_ITS ---
Intake Visit Reasons: 6WK PO: L TKA w/NE 12/17/24 Intake Note: Janina is a 59 year old female who presents today for a post operative appointment about 6 weeks s/p Left TKA 12/17/24. Patient reoprts that she is doing well Allergies No Known Allergies [No Known Allergies*] Allergy (Verified 12/11/24 09:25) HPI HPI 6WK PO: L TKA w/NE 12/17/24: Details: 6 weeks post op doing well 0-125 No complaints PFSH Medical History Kidney stones Habitual snoring Sleep apnea GERD (gastroesophageal reflux disease) Morbid obesity with BMI of 40.0-44.9, adult Obese Mixed hyperlipidemia Pernicious anemia Iron (Fe) deficiency anemia (~08/31/20) B12 deficiency anemia Hypovitaminosis D Essential hypertension Surgical History H/O colonoscopy History of eye surgery History of Family History Father Hypertension COPD (chronic obstructive pulmonary disease) CAD (coronary artery disease) Mother Hypertension Maternal Grandmother Ovarian cancer Social History Household Members: Spouse Housing: House Are you a primary insurance healthcare representative to a significant other at home: No Do you presently have visiting nurse or other home services: No Alcohol intake: current Alcohol intake frequency: holidays/special occasions only Alcohol type: beer and wine Patient Tobacco Use Status: Never used Tobacco e-Cigarette/Vaping Use: Never Used Second Hand Smoke Exposure: Yes service: No Current occupational status: employed 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 Left total knee arthroplasty in expected post operative position with no hardware complications or evidence of loosening Right knee with severe tricompartmental OA Assessment & Plan Assessment & Plan (1) Status post total left knee replacement: Code(s): Z96.652 - Presence of left artificial knee joint Category: Surgical Plan: Status post left TKA doing very well. Continue strengthening. (2) Osteoarthritis of knees, bilateral: Code(s): M17.0 - Bilateral primary osteoarthritis of knee Category: Medical Qualifiers: Osteoarthritis type: primary Qualified Code(s): M17.0 - Bilateral primary osteoarthritis of knee Plan: Right knee with severe arthritis. We had discussed previously surgical intervention and given how well she has done after left knee she would like to proceed forward with right knee replacement. We did review the procedure with her again and noted that, while she did excellently on her left knee, the same risks exist in her right. Orders: Orders XR knee LT 3V Today M25.562 - Pain in left knee Coding Level of Care Code Est Pt Level 4 (89775) Global (29566) Diagnoses Status post total left knee replacement Z96.652 Primary osteoarthritis of both knees M17.0 Osteoarthritis type: primary
== END 2025-01-22 15:06 | disposition home or self-care (01) ==
LOC: HO.HOS 14:33
PROVIDERS: PCP Internal Medicine; Visit Provider Orthopaedic Surgery
DX: M17.0 Bilateral primary osteoarthritis of knee (principal); Z47.1 Aftercare following joint replacement surgery; Z96.652 Presence of left artificial knee joint
CPT/HCPCS: 99024; 99214

== ENCOUNTER → 2025-01-22 14:37 | Outpatient (BNV) | payer BC, SELFPAY | PROVIDERS: Visit Provider Radiology Diagnostic Radiology | DX: M25.562 Pain in left knee (principal); Z96.652 Presence of left artificial knee joint | CPT/HCPCS: 73562 ==

== ENCOUNTER 2025-02-02 16:58 | Outpatient (AMB) | payer BC, SELFPAY ==
--- NOTE | 2025-02-02 17:07 | MHC.PC.OV ---
Vital Signs 02/02/25 17:08 Height 5 ft 3 in Weight 205 lb BMI 36.3 BP 126/80 Blood Pressure Location Lt brachial Position Sitting Pulse 56 Pulse Source Pulse Oximeter Pulse Oximetry (%) 96 Oxygen Delivery Method Room Air Intake Visit Reasons: R TKA w/Dr. Mcdonald 03/31/25 6 Months F/U [employer] Required: No Accompanied by: Self / Same As Patient Allergies No Known Allergies [No Known Allergies*] Allergy (Verified 02/02/25 17:22) Medication List - Last Reconciled 02/02/25 by Maggie Kaba MD acetaminophen 650 mg (2 x 325 mg) PO Q6H PRN 30 days aspirin 325 mg PO BID 42 days atenolol-chlorthalidone 100-25 mg 1 tab PO DAILY atorvastatin 20 mg PO BEDTIME 90 days blood pressure test kit-large As directed celecoxib 200 mg PO BID 30 days celecoxib (Celebrex) 200 mg PO DAILY cholecalciferol (vitamin D3) (Vitamin D3) 25 mcg PO DAILY cyanocobalamin (vitamin B-12) 1,000 mcg PO DAILY 90 days docusate sodium 100 mg PO BID 7 days famotidine 20 mg PO BEDTIME PRN lisinopril 40 mg PO DAILY 90 days magnesium oxide 500 mg PO DAILY 90 days oxycodone 5 mg PO Q4H PRN 7 days walker Folding front wheeled walker Tobacco use date assessed: 02/02/25 Dental Screening Dental Screen Date: 02/02/25 Did you have a dental visit in the last 12 months?: Yes Did you have a dental problem in the last 6 months where you did not have access to dental care?: No Was dental information given to patient?: Patient has dentist HPI HPI Comments History of Present Illness Details The patient is a 59-year-old female presenting for a preoperative evaluation related to a planned right total knee replacement. She had a left knee replacement on December 17 and is scheduled for her right knee surgery on March 31. The patient's previous surgery was successful, with no reported complications. For her current right knee condition, she reports discomfort consistent with her known right knee osteoarthritis but has experienced no significant symptoms at night. Postoperatively, she used a walker briefly after her left knee surgery for a period of one to two weeks before resuming walking without assistance. The patient's background includes a history of essential hypertension, managed with medications, although she occasionally experiences lightheadedness upon standing. She has been attentive to weight management since September, resulting in significant weight loss from 242 pounds to 218 pounds. This achievement has been noted as improving her overall mobility and physical activity levels. Mild major depression is in remission. [facility] Medical History (Updated 02/02/25 @ 19:41 by Maggie Kaba MD) Kidney stones Habitual snoring Sleep apnea GERD (gastroesophageal reflux disease) Morbid obesity with BMI of 40.0-44.9, adult Obese Mixed hyperlipidemia Pernicious anemia Iron (Fe) deficiency anemia (~08/31/20) B12 deficiency anemia Hypovitaminosis D Essential hypertension Surgical History History of left knee replacement H/O colonoscopy History of eye surgery History of Family History Father Hypertension COPD (chronic obstructive pulmonary disease) CAD (coronary artery disease) Mother Hypertension Maternal Grandmother Ovarian cancer Social History Household Members: Spouse Housing: House Are you a primary certified social workers in health care to a significant other at home: No Do you presently have visiting nurse or other home services: No Alcohol intake: current Alcohol intake frequency: holidays/special occasions only Alcohol type: beer and wine Patient Tobacco Use Status: Never used Tobacco e-Cigarette/Vaping Use: Never Used Second Hand Smoke Exposure: Yes service: No Current occupational status: employed 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 1. Little interest or pleasure in doing things: not at all 2. Feeling down, depressed, or hopeless: not at all 3. Trouble falling or staying asleep, or sleeping too much: not at all 4. Feeling tired or having little energy: not at all 5. Poor appetite or overeating: not at all 6. Feeling bad about yourself - or that you are a failure or have let yourself or your family down: not at all 7. Trouble concentrating on things, such as reading the newspaper or watching television: not at all 8. Moving or speaking so slowly that other people could have noticed. Or the opposite - being so fidgety or restless that you have been moving around a lot more than usual: not at all 9. Thoughts that you would be better off or of hurting yourself in some way: not at all Total score: 0 Depression Screening Interpretation: Negative Depression Screening Done: Yes 82766 - PHQ-9 Billing: Yes Source: Developed by Drs. Rocky Palm, Dipti Solares, Shaka Crandall and colleagues, with an educational chio from [employer]. Thrive Questionnaire Date Thrive assessed: 02/02/25 I am a: Patient What is your living situation today?: I have a steady place to live Within the past 12 months, did the food you bought not last and you didn't have the money to get more?: Never true Within the past 12 months, did you worry whether your food would run out before you got money to buy more?: Never true Do you have trouble paying for medicines?: No Do you have trouble getting transportation to medical appointments?: No Do you have trouble paying your heating and electricity bill?: No Do you have trouble taking care of your child, family member or friend?: No Do you have trouble with day-to-day activities such as bathing, preparing meals, shopping, managing finances, etc.?: No Are you currently unemployed and looking for a job?: No Are you interested in more education?: No Please select the resources that you would like help with: None Currently or been in a relationship where the following occur: No concerns reported THRIVE Score: 0 AUDIT C Alcohol Use Questionnaire (AUDIT-C) 1. How often do you have a drink containing alcohol?: Monthly or less 2. How many drinks containing alcohol do you have on a typical day when you are drinking?: 1 or 2 3. How often do you have six or more drinks on one occasion?: Never Total Score: 1 Score Reviewed/Action Taken: No NEDRA-7 AMB Questionnaire NEDRA-7 Date NEDRA - 7 assessed: 02/02/25 Feeling nervous, anxious, or on edge: 0 = Not at all Not being able to stop or control worryin = Not at all Worrying too much about different things: 0 = Not at all Trouble relaxin = Not at all Being so restless that it is hard to sit still: 0 = Not at all Becoming easily annoyed or irritable: 0 = Not at all Feeling afraid as if something awful might happen: 0 = Not at all Total NEDRA-7 score (0-4 normal; 5-9 mild; 10-14 moderate; 15-21 severe): 0 Source: Developed by Drs. Rocky Palm, Dipti Solares, Shaka Crandall and colleagues, with an educational chio from [employer]. NEDRA-7 Assessment Billing NEDRA-7 Assessment Tool: NEDRA-7 Assessment 90520 Review of Systems Const All systems reviewed & are unremarkable except as noted in HPI and below Card Denies chest pain at rest, Denies chest pain with activity, Denies edema, Denies irregular heart rhythm, Denies claudication, Denies dyspnea, Denies dyspnea on exertion, Denies orthopnea, Denies paroxysmal nocturnal dyspnea and Denies slow heart rate Resp Denies cough, Denies dyspnea and Denies dyspnea on exertion GI Denies abdominal pain, Denies change in bowel habits, Denies excessive flatus, Denies nausea and Denies vomiting Physical exam (Primary Care) Vital Signs: Last Vital Signs Pulse 56 02/02/25 17:08 BP 126/80 02/02/25 17:08 Pulse Ox 96 02/02/25 17:08 Oxygen Delivery Method Room Air 02/02/25 17:08 BMI result Body Mass Index 36.3 BMI Assessment/Plan discussion: High BMI High, discussed plan: lifestyle, weight reduction, dietary and physical activity Tobacco/Smoking Status: Tobacco use Status Tobacco use date assessed 02/02/25 02/02/25 17:13 Patient Tobacco Use Status Never used Tobacco 02/02/25 17:13 e-Cigarette/Vaping Use Never Used 02/02/25 17:13 PHQ-9: PHQ-9 Score PHQ-9: Total score 0 02/02/25 17:23 Depression Screening Interpretation: Negative Thrive Assessment: Date of Thrive Assessment Date Thrive assessed 02/02/25 02/02/25 17:13 Currently or been in a relationship where the following occur: No concerns reported Resp Effort & Inspection: normal respiratory effort Auscultation: clear to auscultation bilaterally Cardio Jugular venous distension: no JVD Rate: regular rate Rhythm: regular rhythm Heart sounds: S1 normal heart sound present and S2 normal heart sound present Neuro General: no focal motor deficits Extrem General: Yes full ROM Psych Appearance: grossly normal Coding Level of Care Code Est Pt Level 4 (70002) Complex EM visit Add On G2211 Diagnoses Pre-op evaluation Z01.818 Mild recurrent major depression F33.0 Primary osteoarthritis of both knees M17.0 Osteoarthritis type: primary Essential hypertension I10 Additional Codes NEDRA-7 Assessment Billing - NEDRA-7 Assessment Tool: NEDRA-7 Assessment 67229 ([id number]) PHQ-9 - 23500 - PHQ-9 Billing: Yes ([id number]) Time Spent (min) 22 Assessment & Plan Assessment & Plan (1) Pre-op evaluation: Code(s): Z01.818 - Encounter for other preprocedural examination Category: Medical (2) Mild recurrent major depression: Code(s): F33.0 - Major depressive disorder, recurrent, mild Category: Medical (3) Osteoarthritis of knees, bilateral: Code(s): M17.0 - Bilateral primary osteoarthritis of knee Category: Medical Qualifiers: Osteoarthritis type: primary Qualified Code(s): M17.0 - Bilateral primary osteoarthritis of knee (4) Essential hypertension: Code(s): I10 - Essential (primary) hypertension Category: Medical Plan The right total knee replacement surgery on March 31 is medically cleared based on the patient's stable cardiovascular and lab parameters. Previous EKG and blood work completed show readiness for surgery without need for additional preoperative testing. The patient's controlled hypertension requires ongoing management to prevent perioperative fluctuations. I will ensure her medication regimen, including aspirin, remains consistent ahead of surgery, supported by her pharmacy. Her weight loss efforts should continue, bolstering her recovery period and reducing surgical risks. Patient was informed and verbally consented to the use of an ambient scribe for clinic note documentation during this visit. During this visit, I discussed with the patient that her right total knee replacement surgery is scheduled for March 31 and that she is medically cleared for this procedure. We reviewed her stable vital signs, laboratory results, and EKG findings. I emphasized the importance of continuing her hypertension medications to ensure stable blood pressure prior to and following the surgery. We also discussed her significant weight loss, which contributes positively towards her surgical recovery and decreases cardiovascular risks. Aspirin was discussed and prescribed to be refilled at her declared pharmacy. I assured her that her current preoperative measures, including prior test results, are satisfactory for her upcoming surgery. Medications: Refilled aspirin 325 mg PO BID 84 tabs 0RF 42 days Patient Instructions: - Continue taking all prescribed medications, including antihypertensives, as instructed. - Obtain a refill for aspirin from [facility], located on [facility]. - Continue current diet and exercise regimen to maintain weight loss. - Monitor for dizziness upon standing and report if this worsens. - Arrive on time for surgery on March 31. - Seek emergency care if experiencing severe chest pain, shortness of breath, or significant dizziness.
[2025-02-02 17:08] VITALS: BP 126/80; PULSE 56; O2SAT 96; BMI 36.3
== END 2025-02-02 17:35 | disposition home or self-care (01) ==
LOC: HO.HMCH 16:58
PROVIDERS: PCP Internal Medicine; Visit Provider Internal Medicine
DX: Z01.818 Encounter for other preprocedural examination (principal); F33.0 Major depressive disorder, recurrent, mild; M17.0 Bilateral primary osteoarthritis of knee; I10 Essential (primary) hypertension

== ENCOUNTER → 2025-02-02 16:58 | Outpatient (BNVA) | payer BC, SELFPAY | PROVIDERS: PCP Internal Medicine; Visit Provider Internal Medicine | DX: Z01.818 Encounter for other preprocedural examination (principal); F33.0 Major depressive disorder, recurrent, mild; M17.0 Bilateral primary osteoarthritis of knee; I10 Essential (primary) hypertension; Z79.82 Long term (current) use of aspirin | CPT/HCPCS: 96127 ==

== ENCOUNTER 2025-02-05 11:48 | Outpatient (RCR) | payer BC, SELFPAY ==
--- NOTE | 2025-01-07 09:00 | MHC.PT.EP ---
[facility] [place] Office [place] Office [place] Office [address] Armaan Sawant [address] [phone] F: [phone] F: [phone] F: [phone] F: [phone] Physical Therapy Plan of Care Date of Evaluation: 01/07/25 Date of Surgery: 12/17/24 Diagnosis: L TKA Assessment: 59 y/o female s/p L TKA on 12/17/24. 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 Examination shows decreased L knee ROM (0-114), decreased L hip/knee strength, pain, impaired gait pattern and impaired squat mechanics. REcommend PT 2x/week for 5 weeks to address impairments, implement HEP, and optimize functional mobility. However pt has high co-pay and will come to PT every other week for 3 more sessions to progress strength and functional mobility. Distributed extensive HEP and pt is very motivated Frequency and Duration: The patient will be seen 1x/week for 8 weeks Short Term Goals: 3 weeks I with HEP Demosntrate 0-120 L knee ROM Air Route Traffic Controller Goals: 8 weeks I with HEP and self management of sx Pt will be able to walk > 20 minutes without AD and pain < 3/10 Pt will ascend/ descend stairs in step through pattern with one rail Treatment Plan: Modalities to reduce pain, spasms and effusion. Manual therapy to restore motion and function. Therapeutic exercise to improve strength and flexibility. Neuromuscular re-education for posture and balance. Therapeutic activities to return to functional activities of daily living. Electronically signed by: Melanie Banegas PT Please sign and return to therapist. Thank you for your referral.
--- NOTE | 2025-03-16 07:40 | MHC.PT.DC ---
[facility] [place] Office [place] Office [place] Office [address] Armaan Sawant [address] [phone] F: [phone] F: [phone] F: [phone] F: [phone] Physical Therapy Discharge Report Diagnosis: L TKA Date of Surgery: 12/17/24 Date of Evaluation: 01/07/25 Date of Discharge: 03/16/25 Treatments to Date: 3 Cancellations to Date: 0 No Shows to Date: 0 Discharge Status: Improved Function Independent with HEP Discharge Summary: Pt diligent with HEP and made good progress with PT. D/c chart and pt will return for other knee after surgery Electronically signed by: Melanie Banegas PT Please sign and return to therapist. Thank you for your referral.
== END 2025-03-16 07:40 | disposition home or self-care (01) ==
LOC: HO.PT 11:48
PROVIDERS: PCP Internal Medicine; Visit Provider Physician Assistant
DX: Z47.1 Aftercare following joint replacement surgery (principal); Z96.652 Presence of left artificial knee joint
CPT/HCPCS: 97110; 97161; 97530

== ENCOUNTER → 2025-02-27 08:52 | Outpatient (BNVA) | payer BC, SELFPAY | DX: Z01.818 Encounter for other preprocedural examination (principal) ==

== ENCOUNTER 2025-03-05 13:09 | Outpatient (AMB) | payer BC, SELFPAY ==
[2025-03-05 13:16] VITALS: BMI 36.3
--- NOTE | 2025-03-05 13:16 | A.OFFVIS_ITS ---
Vital Signs 03/05/25 13:16 Height 5 ft 3 in Weight 205 lb BMI 36.3 Intake Visit Reasons: PO: L TKA w/NE 12/17/24 Intake Note: Janina is a 59 year old female who presents today for a post op appointment s/p left total knee arthroplasty 12/17/24 NE. Patient reports she is doing very well. No concern or complaints for today. Allergies No Known Allergies [No Known Allergies*] Allergy (Verified 03/05/25 13:18) HPI HPI PO: L TKA w/NE 12/17/24: Details: Ms. Heller this is a 59-year-old female who presents to the office today status post left total knee arthroplasty performed with Dr. Mcdonald on 12/17/2024. Patient states that overall she is doing very well. She is scheduled to have a right total knee arthroplasty in March with Dr. Mcdonald. She has attended all physical therapy sessions and has completed and met all goals. She has no pain at this time. She has no other complaints. [facility] Medical History (Updated 02/02/25 @ 19:41 by Maggie Kaba MD) Kidney stones Habitual snoring Sleep apnea GERD (gastroesophageal reflux disease) Morbid obesity with BMI of 40.0-44.9, adult Obese Mixed hyperlipidemia Pernicious anemia Iron (Fe) deficiency anemia (~08/31/20) B12 deficiency anemia Hypovitaminosis D Essential hypertension Surgical History Hx of wisdom tooth extraction History of left knee replacement H/O colonoscopy History of eye surgery History of Family History Father Hypertension COPD (chronic obstructive pulmonary disease) CAD (coronary artery disease) Mother Hypertension Maternal Grandmother Ovarian cancer Social History Household Members: Spouse Housing: House Are you a primary day care home provider to a significant other at home: No Do you presently have visiting nurse or other home services: No Alcohol intake: current Alcohol intake frequency: holidays/special occasions only Alcohol type: beer and wine Patient Tobacco Use Status: Never used Tobacco e-Cigarette/Vaping Use: Never Used Second Hand Smoke Exposure: Yes service: No Current occupational status: employed 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 No surrounding erythema or drainage. Range of motion is 0- 110 degrees. NVI. Assessment & Plan Assessment & Plan (1) Status post total left knee replacement: Code(s): Z96.652 - Presence of left artificial knee joint Category: Surgical Plan Ms. Heller this is a 59-year-old female who presents to the office today status post left total knee arthroplasty performed with Dr. Mcdonald on 12/17/2024. Patient states that overall she is doing very well. She is scheduled to have a right total knee arthroplasty in March with Dr. Mcdonald. She has attended all physical therapy sessions and has completed and met all goals. She has no pain at this time. She has no other complaints. While the office today, we discussed returning back to normal activities to tolerance. She has completed all physical therapy sessions and is looking forward to total knee arthroplasty on the right knee in the next few weeks. I would like to see her back in 6 weeks with repeat x-rays of the left knee, sooner if needed. Coding Level of Care Code Global (85645) Diagnoses Status post total left knee replacement Z96.652
== END 2025-03-05 13:41 | disposition home or self-care (01) ==
LOC: HO.HOS 13:10
PROVIDERS: PCP Internal Medicine; Visit Provider Physician Assistant
DX: Z96.652 Presence of left artificial knee joint (principal)
CPT/HCPCS: 99024

== ENCOUNTER → 2025-03-05 13:09 | Outpatient (BNVA) | payer BC, SELFPAY | PROVIDERS: PCP Internal Medicine; Visit Provider Physician Assistant | DX: Z13.89 Encounter for screening for other disorder (principal) ==

== ENCOUNTER 2025-03-26 09:54 | Outpatient (AMB) | payer BC, SELFPAY ==
[2025-03-26 09:59] VITALS: BMI 36.3
--- NOTE | 2025-03-26 09:59 | MHC.OFFVIS ---
Vital Signs 03/26/25 09:59 Height 5 ft 3 in Weight 205 lb BMI 36.3 Intake Visit Reasons: Pre-Op: R TKA w/NE 03/31/25 Intake Note: Janina is a 59 year old female who presents today for a Pre-operative R TKA, 03/31/25. Pain management agreement reviewed and signed. Allergies No Known Allergies [No Known Allergies*] Allergy (Verified 03/26/25 10:03) Medication List - Last Reviewed 03/26/25 by DEYSI Alegria acetaminophen 650 mg (2 x 325 mg) PO Q6H PRN 30 days aspirin 325 mg PO BID 42 days atenolol-chlorthalidone 100-25 mg 1 tab PO DAILY atorvastatin 20 mg PO BEDTIME 90 days blood pressure test kit-large As directed celecoxib (Celebrex) 200 mg PO DAILY cholecalciferol (vitamin D3) (Vitamin D3) 25 mcg PO DAILY cyanocobalamin (vitamin B-12) 1,000 mcg PO DAILY 90 days docusate sodium 100 mg PO BID 7 days famotidine 20 mg PO BEDTIME PRN lisinopril 40 mg PO DAILY 90 days magnesium oxide 500 mg PO DAILY 90 days oxycodone 5 mg PO Q4H PRN 7 days walker Folding front wheeled walker HPI Comments Details: Ms Heller presents to the office today for preop visit. She is scheduled for right total knee arthroplasty with Dr. Mcdonald. She continues to have ongoing pain and difficulty with ambulation in the right knee, which is affecting her quality of life; therefore, she has elected to move forward with surgery. Patient lives at home with her and 3 dogs Patient would like to be DC home with A She does not smoke, denies h/o DVT and cancer LT TKA Date of Service: 12/17/24 Implants: [place] Triathlon cemented posterior stabilized 12/16/15 Surgeon: Suleman Mcdonald MD [facility] Medical History (Updated 03/26/25 @ 10:06 by Eddie Fu PA-C) Kidney stones Habitual snoring Sleep apnea GERD (gastroesophageal reflux disease) Morbid obesity with BMI of 40.0-44.9, adult Obese Mixed hyperlipidemia Pernicious anemia Iron (Fe) deficiency anemia (~08/31/20) B12 deficiency anemia Hypovitaminosis D Essential hypertension Surgical History Hx of wisdom tooth extraction History of left knee replacement H/O colonoscopy History of eye surgery History of Family History Father Hypertension COPD (chronic obstructive pulmonary disease) CAD (coronary artery disease) Mother Hypertension Maternal Grandmother Ovarian cancer Social History Household Members: Spouse Housing: House Are you a primary care team assistant to a significant other at home: No Do you presently have visiting nurse or other home services: No Alcohol intake: current Alcohol intake frequency: holidays/special occasions only Alcohol type: beer and wine Patient Tobacco Use Status: Never used Tobacco e-Cigarette/Vaping Use: Never Used Second Hand Smoke Exposure: Yes service: No Current occupational status: employed 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 occupational exposures/hazards: No Cognitive needs: No Hearing needs: No Vision needs: No Review of Systems Const All systems reviewed & are unremarkable except as noted in HPI and below Physical Exam Vital Signs: BMI result Body Mass Index 36.3 Const General: cooperative, healthy appearing, comfortable, no acute distress, well developed and alert Orientation/consciousness: patient oriented x3 HEENT Head: Yes normal to inspection, Yes normocephalic and Yes atraumatic Eyes General: appearance normal, both eyes and all related structures Neck Neck: Yes normal visual inspection and Yes no lymphadenopathy Resp Effort & Inspection: normal respiratory effort and able to speak in complete sentences Cardio Rate: regular rate Peripheral pulses: Peripheral pulses 2+ throughout GI Inspection: Yes normal to inspection Palpation (GI): Soft to palpation Skin General skin exam: no rashes or lesions noted Neuro General: patient oriented x3 Extrem Other: Right knee skin intact, no open wounds or abraisons. ROM 0-95 Calf supple non tender NVI Psych Appearance: grossly normal Mental Status: mental status grossly normal Assessment & Plan Assessment & Plan (1) Osteoarthritis of right knee: Code(s): M17.11 - Unilateral primary osteoarthritis, right knee Category: Medical Plan: I discussed in detail the procedure and what to expect pre and post operatively. We discussed the risks, benefits and alternatives to the surgery as well as the rehabilitation course. The risks; which include, but are not limited to infection, bleeding, nerve injury, ongoing pain, swelling, and stiffness, perioperative risk of injury to bones and soft tissues, and blood clots. I?ve answered all questions and with their understanding they have consented to move forward with Right total knee arthroplasty with Dr. Mcdonald PT order placed and the patient was instructed to contact [facility] and schedule an appt to begin after her post op appt Prior LT TKA, patient was DC with the following medication: docusate sodium 100 mg Capsule 100 mg PO BID 7 Days Qty: 14 0RF celecoxib 200 mg Capsule 200 mg PO BID 30 Days Qty: 60 0RF aspirin 325 mg Tablet 325 mg PO BID 42 Days Qty: 84 0RF oxycodone 5 mg Tablet 5 mg PO Q4H PRN (Reason: Pain, Moderate(Pain Scale 4-6)) 7 Days Qty: 42 0RF Rx Instructions: Partial Fill upon patient request. acetaminophen 325 mg Tablet 650 mg PO Q6H PRN (Reason: Pain, Mild 1-3,Fever,Headache) 30 Days Qty: 240 0RF Orders: Orders Complete Blood Count Auto Diff Today Z01.818 - Encounter for other preprocedural examination Type and Screen Today Z01.818 - Encounter for other preprocedural examination PT Evaluation and Treatment Today Z96.651 - Presence of right artificial knee joint Coding Level of Care Code Est Pt Level 3 (59624) Complex EM visit Add On G2211 Diagnoses Osteoarthritis of right knee M17.11
== END 2025-03-26 11:16 | disposition home or self-care (01) ==
LOC: HO.HOS 09:55
PROVIDERS: Visit Provider Physician Assistant
DX: M17.11 Unilateral primary osteoarthritis, right knee (principal)
CPT/HCPCS: 99024

== ENCOUNTER → 2025-03-26 09:54 | Outpatient (BNVA) | payer BC, SELFPAY | PROVIDERS: Visit Provider Physician Assistant | DX: Z13.89 Encounter for screening for other disorder (principal) ==

== ENCOUNTER 2025-03-31 05:57 | Day surgery (SDC) | payer BC, SELFPAY ==
[2025-03-03 12:59] VITALS: BP 120/58; PULSE 52; RESP 16; O2SAT 99; BMI 36.8
--- NOTE | 2025-03-03 13:19 | P.CONAN_ITS ---
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 Only limited by knee pain SY: Never diagnosed. Snores. No cpap GERD: famotadine prn PMFSH Active Problems Active Problems: All Active Problems Osteoarthritis of left knee (Acute) Status post total left knee replacement (Acute) Pre-op evaluation (Acute) Osteoarthritis of knees, bilateral (Acute) Hypokalemia (Acute) Mild recurrent major depression (Acute) Right knee pain (Acute) Left knee pain (Acute) Physical exam (Acute) Mixed hyperlipidemia (Acute) Pernicious anemia (Acute) Iron (Fe) deficiency anemia (Acute ~08/31/20) Hypovitaminosis D (Acute) Essential hypertension (Acute) Past Medical History Medical History Kidney stones Habitual snoring Sleep apnea GERD (gastroesophageal reflux disease) Morbid obesity with BMI of 40.0-44.9, adult Obese Mixed hyperlipidemia Pernicious anemia Iron (Fe) deficiency anemia (~08/31/20) B12 deficiency anemia Hypovitaminosis D Essential hypertension Family History Family History Father Hypertension COPD (chronic obstructive pulmonary disease) CAD (coronary artery disease) Mother Hypertension Maternal Grandmother Ovarian cancer Family history of problems with anesthesia: No Surgical History Surgical History Hx of wisdom tooth extraction History of left knee replacement H/O colonoscopy History of eye surgery History of History of Problems with Anesthesia: No Social History Social History Household Members: Spouse Housing: House Are you a primary day care attendant to a significant other at home: No Do you presently have visiting nurse or other home services: No Alcohol intake: current Alcohol intake frequency: holidays/special occasions only Alcohol type: beer and wine Patient Tobacco Use Status: Never used Tobacco e-Cigarette/Vaping Use: Never Used Second Hand Smoke Exposure: Yes Use of substances other than those prescribed or required for medical reasons: No Have you been hit, kicked, punched, or otherwise hurt by someone within the past year? 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 occupational exposures/hazards: No Cognitive needs: No Hearing needs: No Vision needs: No Meds Allergies Allergy/AdvReac Type Severity Reaction Status Date / Time No Known Allergies Allergy Verified 03/31/25 06:16 [No Known Allergies*] Home Medications ?Medication ?Instructions ?Recorded ?Confirmed ?Last Taken ?Type famotidine 20 mg tablet 20 mg PO BEDTIME PRN Acid Reflux 11/12/24 03/31/25 Unknown History Exam Height,Weight and Vital Signs: Height 5 ft 2 in Weight 91.172 kg Last Vital Signs Pulse 52 03/03/25 12:59 Resp 16 03/03/25 12:59 BP 120/58 L 03/03/25 12:59 Pulse Ox 99 03/03/25 12:59 O2 Del Method Room Air 03/03/25 12:59 Pertinent Lab Results Pertinent Lab Results: Lab Results 03/03/25 03/03/25 03/26/25 Range/Units 13:10 13:32 10:29 WBC 6.2 (4.8-10.8) X10*3/uL RBC 4.98 (4.20-5.50) X10*6/uL Hgb 14.4 (12.0-16.0) g/dl Hct 43.5 (37.0-47.0) % MCV 87.3 (80.0-98.0) fL MCH 28.9 (27.0-33.0) pg MCHC 33.1 (31.0-35.0) g/dl RDW 12.7 (11.0-16.0) % Plt Count 155 L (160-400) X10*3/uL MPV 13.0 H (9.4-12.3) fL Immature Gran % (Auto) (0.0-0.4) % Neut % (Auto) (45-73) % Lymph % (Auto) (20-40) % Weakley % (Auto) (2-11) % Eos % (Auto) (0-4) % Baso % (Auto) (0-2) % Lymph # (Auto) (1.2-4.9) X10*3/uL Weak[place] # (Auto) (0.1-1.2) X10*3/uL Eos # (Auto) (0.0-0.4) X10*3/uL Baso # (Auto) (0.0-0.2) X10*3/uL Abs Immat Gran (auto) (0.00-0.03) X10*3/uL Absolute Neuts (auto) (2.0-8.3) x10*3/uL Absolute Nucleated RBC 0.000 (0.0-0.012) X10*3/uL Nucleated RBC % (auto) 0.0 (0.0-0.2) /100WBC Sodium 142 (135-145) mmol/L Potassium 3.6 (3.3-5.1) mmol/L Chloride 105 (96-108) mmol/L Carbon Dioxide 29 (22-29) mmol/L Anion Gap 12 (12-20) BUN 23 H (9-16) mg/dL Creatinine 0.75 (0.5-1.4) mg/dL Estim Creat Clear Calc 86.9 Estimated GFR > 60 Random Glucose 86 (60-115) mg/dL Calcium 9.6 (8.4-10.2) mg/dL Nasal Screen MRSA (PCR) NEGATIVE (Negative) Nasal S. aureus Screen NEGATIVE (Negative) Nasal MRSA/S.aureus Interp SEE NOTE Blood Type O Negative Antibody Screen NEGATIVE 03/26/25 Range/Units 10:40 WBC 5.7 (4.8-10.8) X10*3/uL RBC 5.25 (4.20-5.50) X10*6/uL Hgb 15.3 (12.0-16.0) g/dl Hct 45.1 (37.0-47.0) % MCV 85.9 (80.0-98.0) fL MCH 29.1 (27.0-33.0) pg MCHC 33.9 (31.0-35.0) g/dl RDW 12.8 (11.0-16.0) % Plt Count 147 L (160-400) X10*3/uL MPV 12.9 H (9.4-12.3) fL Immature Gran % (Auto) 0.4 (0.0-0.4) % Neut % (Auto) 57.7 (45-73) % Lymph % (Auto) 29.0 (20-40) % Weakley % (Auto) 9.5 (2-11) % Eos % (Auto) 3.0 (0-4) % Baso % (Auto) 0.4 (0-2) % Lymph # (Auto) 1.7 (1.2-4.9) X10*3/uL Weak[place] # (Auto) 0.5 (0.1-1.2) X10*3/uL Eos # (Auto) 0.2 (0.0-0.4) X10*3/uL Baso # (Auto) 0.0 (0.0-0.2) X10*3/uL Abs Immat Gran (auto) 0.02 (0.00-0.03) X10*3/uL Absolute Neuts (auto) 3.3 (2.0-8.3) x10*3/uL Absolute Nucleated RBC 0.000 (0.0-0.012) X10*3/uL Nucleated RBC % (auto) 0.0 (0.0-0.2) /100WBC Sodium (135-145) mmol/L Potassium (3.3-5.1) mmol/L Chloride (96-108) mmol/L Carbon Dioxide (22-29) mmol/L Anion Gap (12-20) BUN (9-16) mg/dL Creatinine (0.5-1.4) mg/dL Estim Creat Clear Calc Estimated GFR Random Glucose (60-115) mg/dL Calcium (8.4-10.2) mg/dL Nasal Screen MRSA (PCR) (Negative) Nasal S. aureus Screen (Negative) Nasal MRSA/S.aureus Interp Blood Type Antibody Screen Narrative Narrative: EKG 09/2024 Vent. Rate : 055 BPM Atrial Rate : 055 BPM P-R Int : 160 ms QRS Dur : 088 ms QT Int : 428 ms P-R-T Axes : 052 043 028 degrees QTc Int : 409 ms Sinus bradycardia with sinus arrhythmia Otherwise normal ECG No previous ECGs available Airway Mallampati Class: II TM Dist: >3cm Neck ROM: Full Loose/Missing/Broken Teeth: Yes (molar missing, crown molar x 1) Heart: RRR Lungs: CTAB Assessment and Plan Assessment Anesthesia Assessment: Anesthesia Plan Discussed and PAT Visit Final Anesthetic Review Family History of Problems with Anesthesia: No History of Problems with Anesthesia: No Documented by User: Nazanin Ortiz MD 03/31/25 08:15 [facility] Past Medical History Medical History Kidney stones Habitual snoring Sleep apnea GERD (gastroesophageal reflux disease) Morbid obesity with BMI of 40.0-44.9, adult Obese Mixed hyperlipidemia Pernicious anemia Iron (Fe) deficiency anemia (~08/31/20) B12 deficiency anemia Hypovitaminosis D Essential hypertension Family History Family History Father Hypertension COPD (chronic obstructive pulmonary disease) CAD (coronary artery disease) Mother Hypertension Maternal Grandmother Ovarian cancer Surgical History Surgical History Hx of wisdom tooth extraction History of left knee replacement H/O colonoscopy History of eye surgery History of Social History Social History Household Members: Spouse Housing: House Are you a primary day care attendant to a significant other at home: No Do you presently have visiting nurse or other home services: No Alcohol intake: current Alcohol intake frequency: holidays/special occasions only Alcohol type: beer and wine Patient Tobacco Use Status: Never used Tobacco e-Cigarette/Vaping Use: Never Used Second Hand Smoke Exposure: Yes Use of substances other than those prescribed or required for medical reasons: No Have you been hit, kicked, punched, or otherwise hurt by someone within the past year? 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 occupational exposures/hazards: No Cognitive needs: No Hearing needs: No Vision needs: No Meds Allergies Allergy/AdvReac Type Severity Reaction Status Date / Time No Known Allergies Allergy Verified 03/31/25 06:16 [No Known Allergies*] Home Medications ?Medication ?Instructions ?Recorded ?Confirmed ?Last Taken ?Type famotidine 20 mg tablet 20 mg PO BEDTIME PRN Acid Reflux 11/12/24 03/31/25 Unknown History Assessment and Plan Final Anesthetic Review NPO: Yes ASA Class: II Final Preanesthetic Review: No Changes in Pt Med Stat, Meds/Allgs Chart Reviewed, Consent Obtained/Reviewed and Anes Risks/Benef Reviewed Patient Risk: Low Procedure Risk: Intermediate Anesthetic Plan Anesthetic Plan: Spinal, Regional Block and Agree w/ Assess. and Plan Disposition: Standard PACU
[2025-03-03 14:32] LABS: Hematocrit 43.5 % (37.0-47.0); Hemoglobin 14.4 g/dl (12.0-16.0); Mean Corpuscular HGB Conc 33.1 g/dl (31.0-35.0); Mean Corpuscular Hemoglobin 28.9 pg (27.0-33.0); Mean Corpuscular Volume 87.3 fL (80.0-98.0); Platelet Count 155 X10*3/uL (160-400); Red Blood Count 4.98 X10*6/uL (4.20-5.50); Red Cell Distribution Width 12.7 % (11.0-16.0); White Blood Count 6.2 X10*3/uL (4.8-10.8)
[2025-03-03 14:51] LABS: MRSA Nasal PCR NEGATIVE (Negative); SA Nasal PCR NEGATIVE (Negative)
[2025-03-03 15:02] LABS: Anion Gap 12 (12-20); Blood Urea Nitrogen 23 mg/dL (9-16); Calcium 9.6 mg/dL (8.4-10.2); Carbon Dioxide 29 mmol/L (22-29); Chloride 105 mmol/L (96-108); Creatinine Clr Calc Pharmacy 86.9; Estimated Glomerular Filt Rate > 60; Glucose Random 86 mg/dL (60-115); Potassium 3.6 mmol/L (3.3-5.1); Sodium 142 mmol/L (135-145)
[2025-03-26 10:41] LABS: MANUAL DIFF FLAG NO
[2025-03-26 11:37] LABS: Basophils Percent Auto 0.4 % (0-2); Eosinophils Absolute Auto 0.2 X10*3/uL (0.0-0.4); Hematocrit 45.1 % (37.0-47.0); Hemoglobin 15.3 g/dl (12.0-16.0); Imm Gran Abs Auto 0.02 X10*3/uL (0.00-0.03); Imm Gran Pct Auto 0.4 % (0.0-0.4); Lymphocytes Absolute Auto 1.7 X10*3/uL (1.2-4.9); Mean Corpuscular HGB Conc 33.9 g/dl (31.0-35.0); Mean Corpuscular Hemoglobin 29.1 pg (27.0-33.0); Mean Corpuscular Volume 85.9 fL (80.0-98.0); Mean Platelet Volume 12.9 fL (9.4-12.3); Monocytes Absolute Auto 0.5 X10*3/uL (0.1-1.2); Monocytes Percent Auto 9.5 % (2-11); Neutrophils Absolute Auto 3.3 x10*3/uL (2.0-8.3); Neutrophils Percent Auto 57.7 % (45-73); Platelet Count 147 X10*3/uL (160-400); Red Blood Count 5.25 X10*6/uL (4.20-5.50); Red Cell Distribution Width 12.8 % (11.0-16.0); White Blood Count 5.7 X10*3/uL (4.8-10.8)
[2025-03-31] VITALS (15 sets, daily range): BP systolic 86–150; BP diastolic 54–84; PULSE 48–67; RESP 12–18; TEMP 36.1–37; O2SAT 93–100; BMI 35.9
--- NOTE | ~2025-03-31 | XR_ITS ---
EXAMINATION: XR KNEE, RIGHT CLINICAL INFORMATION: rt tka COMPARISON: 01/22/2025. TECHNIQUE: Two views of the right knee. FINDINGS: There has been total right knee arthroplasty. Tibial, femoral components are well seated, in anatomic alignment, without periprosthetic fracture or lucency. There has been patellar resurfacing. No bone lesions. There are ventral skin sara present. There is anterior subcutaneous soft tissue gas and mild soft tissue swelling. XR/XR knee RT 2V IMPRESSION: Post total right knee arthroplasty without complication evident. Electronically signed by: Blade Wheeler MD 03/31/2025 09:40 AM EDT
[2025-03-31] MEDS: Lactated Ringers 1,000 ML 100 ML IVCONT ×3 (07:03→21:57)
--- NOTE | 2025-03-31 07:21 | MHC.SHP ---
Pre-Procedural Eval Section A - 24 Hr Update-Section A only Date of Service: 03/31/25 The patient is an INPATIENT: No Changes since office visit: No Cold of Flu in the past 2 weeks, No New Medical Problems, No Changes in Medication and No Patient answered all questions The patient has been examined within 24 hours of the surgical procedure. The History & Physical has been completed within 30 days and I have reviewed it.: Yes Section B - Complete if H&P > 30 days Chief Complaint: Unilateral primary osteoarthritis, right knee Allergies: Allergies Allergy/AdvReac Type Severity Reaction Status Date / Time No Known Allergies Allergy Verified 03/31/25 06:16 [No Known Allergies*] Plan I have reviewed the history and physical and performed a pertinent physical examination on my patient. No changes have occurred unless specified. Time Spent With Patient Time: Total time managing care of this patient today ____ minutes.
[2025-03-31] MEDS: ceFAZolin Sodium/Dextrose,Iso 2 GM/50 ML PIGGYBACK IV ×2 (07:55→14:24)
--- NOTE | 2025-03-31 09:10 | P.BOP_ITS ---
Brief Operative Note Date of Service: 03/31/25 Pre-op diagnosis: Right knee OA Post-op diagnosis: same Procedure: Right TKA Implants: [place] Triathlon cemented 12/16/15/a Surgeon: Suleman Mcdonald MD Anesthesia: GLMA, regional and spinal Was an Trailer Mechanic used for this Procedure?: Yes Trailer Mechanic: Eddie Fu Estimated blood loss (mL): 25 Tourniquet time (min): 60 IV fluids (mL): 1,000 Pathology: other Condition: stable Disposition: PACU
--- NOTE | 2025-03-31 09:11 | P.OP_ITS ---
Operative Note Operative Note Date of Service: 03/31/25 Narrative: Date of Service: 03/31/25 Pre-op diagnosis: Right knee OA Post-op diagnosis: same Procedure: Right TKA Implants: [place] Triathlon cemented 12/16/15PS/29a Surgeon: Suleman Mcdonald MD Anesthesia: GLMA, regional and spinal Was an Career Education Teacher used for this Procedure?: Yes Career Education Teacher: Eddie Fu Estimated blood loss (mL): 25 Tourniquet time (min): 60 IV fluids (mL): 1,000 Pathology: other Condition: stable Disposition: PACU Procedure in detail: The patient was brought to the operating room and prepped and draped in standard sterile fashion. A time-out was called to identify proper site proper procedure proper surgeon and IV antibiotics were administered. 1 g of IV tranexamic acid was administered. I began by making a midline incision to the retinaculum and performed a medial parapatellar arthrotomy. The patella was translated laterally and the knee was flexed up. There was complete eburnation of all compartments. I performed a small medial peel and resected the infrapatellar fat pad. Hang's line was then used to drill my intramedullary femoral guide and my distal femur cut of 10 mm was made in 5 degrees of valgus while protecting the soft tissues. I then measured a # 3 femur and placed my cutting guide and made my anterior posterior and chamfer cuts in 3 deg or ER while protecting the soft tissues at all times. I then made my box but removing the PCL. Once I was satisfied with my cuts I turned my attention to the tibia. I removed the meniscus medially and laterally and , using an external cutting guide, in line with the tibial crest and the third ray, I made my distal tibial cut in 0 deg slope of while protecting the posterior soft tissues at all times. An extension block was used to confirm appropriate amount of bony resection. I then sized a #3 tibia and once I was satisfied that there was complete tibial coverage I placed my trial and with the trial femur in place took the knee through range of motion. I was satisfied with the extension and flexion as well as the balance at 0, 30 and 90 degrees. I then turned my attention to the patella where I removed 1 cm from the undersurface of the patella and then trialed a 29a patellar button. Again the knee was taken through range of motion I was satisfied with the tracking. I then prepared the tibia with a drill and punch. A femoral bone plug was placed and the knee was irrigated copiously. I mixed 2 bags of [place] bone cement on the back table using standard 3rd gen cementation technique. I then cemented the patella, tibia and femur in standard fashion. Axial compression and a clamp were used while the cement dried. Once the cement was hard on the back table all excess cement was removed and I trialed different inserts until I selected a #16 insert. The final insert was placed and local TXA was administered. The knee was then closed with a running Quill suture, a 3 0 Vicryl and sara on the skin. Patient was then placed in sterile dressing and brought to recovery room in stable condition there were no known complications.
--- NOTE | 2025-03-31 10:04 | PHA.MEDREC ---
Pharmacy Consult ? Medication Reconciliation Pharmacy has REVIEWED the medication reconciliation done by RN. Claims utilized for RX medications.
--- NOTE | 2025-03-31 11:43 | W.MHC.F2F ---
Service Date Service Date: 03/31/25 Encounter Date of encounter: 04/01/25 Reasons for Services Signs and symptoms assessed: s/p RTKA Pt. is considered homebound due to recent surgery. Unable to drive, poor balance, poor gait mechanics. Reason for physical therapy: home safety and mobility, therapeutic exercises, restore joint function, gait/transfer training and ADL training Homebound: Leaving the home is medically contraindicated at this time without the asist of a device and/or another person due th the listed conditions above and below. Reason homebound: unsteady gait / fall risk, leg weakness, pain with ambulation, poor balance / fall risk and unable to drive Certification: Based on the above findings, I certify that this patient is confined to the home and needs intermittent long term care, physical therapy and/or speech therapy, or continues to need occupational therapy. The patient is under my care, and I have initiated the establishment of the plan of care. The patient will be followed by a physician who will periodically review the plan of care. Time Spent With Patient Time: Total time managing care of this patient today ____ minutes.
--- NOTE | 2025-03-31 11:44 | PM.DS ---
DS: Providers Provider Date of Service: 04/01/25 Date of discharge: 04/01/25 Primary care physician: Maggie Kaba MD Consults: 03/31/25 11:23 Consult to Hospitalist Routine Comment: Consulting Provider: [facility] [place]ists Reason For Exam: HTN DS: Summary Hospital Course Hospital Course: The patient underwent a successful right total knee arthroplasty, they were transferred to PACU and then to the floor to recover. During their stay, their vitals were stable, afebrile at 98.1. Labs were unremarkable, H/H 14.9/14.0. POD 1 they were started on Aspirin 325mg po bid for DVT ppx, they also received Physical Therapy services. Prior to discharge, their dressing was clean dry and intact and the plan was to be discharged home with VNA services. Dressing is to remain in place at all times. If the dressing begins to come off, has been accidentally removed or is saturated please contact the orthopedic office for a dressing change. Time Attestation Discharge Coordination Time (in mins): 30 Quality: Safe Use of Opioids Does Pt have an Active Cancer Diagnosis on the Problem List?: No Quality: Stroke Does the patient have a stroke diagnosis?: No Physical Exam Vital Signs: Vital Signs: Last Vital Signs Temp 97.2 F 03/31/25 11:23 Pulse 50 03/31/25 11:23 Resp 16 03/31/25 11:23 BP 125/71 03/31/25 11:23 Pulse Ox 100 03/31/25 11:23 O2 Del Method Room Air 03/31/25 11:23 BMI result Body Mass Index 35.9 Const: General: cooperative, healthy appearing and no acute distress Resp: Effort & Inspection: normal respiratory effort and able to speak in complete sentences Extrem: Other: right knee dressing is c/d/i. Able to dorsi/plantar flex. Calf is supple and nontender. Sensation intact. Pedal pulse intact. DS: Data Data Completed and Pending Pending studies at discharge: Pending at discharge 03/31/25 08:18 Surgical [PTH] Routine Discharge Plan Discharge Patient Disposition: Home, Self-Care Referrals: Eddie Fu PA-C [Physician [employer]] - 04/16/25 2:00 pm Discharge Medications: New acetaminophen 325 mg Tablet 650 mg PO Q6H PRN (Reason: Pain, Mild 1-3,Fever,Headache) 30 Days Qty: 240 0RF aspirin 325 mg Tablet 325 mg PO BID 42 Days Qty: 84 0RF celecoxib 200 mg Capsule 200 mg PO BID 30 Days Qty: 60 0RF oxycodone 5 mg Tablet 5 mg PO Q4H PRN (Reason: Pain, Moderate(Pain Scale 4-6)) 7 Days Qty: 42 0RF Rx Instructions: Partial Fill upon patient request. docusate sodium 100 mg Capsule 100 mg PO BID 30 Days Qty: 60 0RF Continued cyanocobalamin (vitamin B-12) 1,000 mcg tablet, sublingual 1,000 mcg PO DAILY 90 Days Qty: 90 3RF magnesium oxide 500 mg capsule 500 mg PO DAILY 90 Days Qty: 90 3RF cholecalciferol (vitamin D3) [Vitamin D3] 25 mcg (1,000 unit) capsule 25 mcg PO DAILY Qty: 30 0RF atorvastatin 20 mg tablet 20 mg PO BEDTIME 90 Days Qty: 90 2RF lisinopril 40 mg tablet 40 mg PO DAILY 90 Days Qty: 90 1RF atenolol-chlorthalidone 100-25 mg tablet 1 tab PO DAILY Qty: 90 0RF famotidine 20 mg Tablet 20 mg PO BEDTIME PRN (Reason: Acid Reflux) (DME) blood pressure test kit-large Kit See Rx Instructions .ROUTE .MEDSUPPLY Qty: 1 0RF Rx Instructions: As directed (DME) walker [facility] [place] See Rx Instructions .ROUTE .MEDSUPPLY Qty: 1 0RF Rx Instructions: Folding front wheeled walker Discontinued celecoxib [Celebrex] 200 mg capsule 200 mg PO DAILY Qty: 30 2RF docusate sodium 100 mg Capsule 100 mg PO BID 7 Days Qty: 14 0RF acetaminophen 325 mg Tablet 650 mg PO Q6H PRN (Reason: Pain, Mild 1-3,Fever,Headache) 30 Days Qty: 240 0RF aspirin 325 mg tablet 325 mg PO BID 42 Days Qty: 84 0RF Discharge Orders: Discharge Order (Routine); Ordered 04/01/25 Ordered By: Francisca Malcolm Diet: Advance to usual diet Activity on Discharge: Use cane or walker Activity Restrictions/Additional Instructions: Physical Therapy for ROM 0-120, quad strength, gait training. Use walker for ambulation Limit stair climbing, No shower, No tub bath, No driving Continue Aspirin x 6 weeks for anticoagulation Keep Aquacel dressing clean, dry and intact. Follow up with orthopedics in 2 weeks Print Language: Occitan
--- NOTE | 2025-03-31 14:44 | P.CONHOSP_ITS ---
History of Present Illness Data of Consult Service Date: 03/31/25 Primary Care Provider: Maggie Kaba MD HPI Reason for consult: Medical management 59-year-old female with a past medical history of hypertension and hyperlipidemia is admitted for an elective right total knee replacement which she underwent today with Dr. Mcdonald. On exam patient is awake and alert, denies any pain in her right knee. She has been out of bed, ambulated bathroom and voiding without difficulty. Patient has no nausea or vomiting, taking p.o. Her blood pressure has been stable. She denies any chest pain, shortness of breath, dizziness, lightheadedness or any other concerning symptoms. Patient is seen today for medical management of her hypertension. Review of Systems 2 Review of Systems: Denies any shortness of breath, chest pain, dizziness, lightheadedness, abdominal pain or discomfort, nausea vomiting or diarrhea PMFSH Medical History Kidney stones Habitual snoring Sleep apnea GERD (gastroesophageal reflux disease) Morbid obesity with BMI of 40.0-44.9, adult Obese Mixed hyperlipidemia Pernicious anemia Iron (Fe) deficiency anemia (~08/31/20) B12 deficiency anemia Hypovitaminosis D Essential hypertension Family History Father Hypertension COPD (chronic obstructive pulmonary disease) CAD (coronary artery disease) Mother Hypertension Maternal Grandmother Ovarian cancer Surgical History Hx of wisdom tooth extraction History of left knee replacement H/O colonoscopy History of eye surgery History of Social History Household Members: Spouse and Family Housing: House Are you a primary health care social worker to a significant other at home: No Do you presently have visiting nurse or other home services: No Alcohol intake: current Alcohol intake frequency: holidays/special occasions only Alcohol type: beer and wine Patient Tobacco Use Status: Never used Tobacco e-Cigarette/Vaping Use: Never Used Second Hand Smoke Exposure: Yes Use of substances other than those prescribed or required for medical reasons: No Have you been hit, kicked, punched, or otherwise hurt by someone within the past year? If so, by whom?: No Do you feel safe in your current relationship?: Yes Is there a partner from a previous relationship who is making you feel unsafe now?: No Are you made to feel afraid or neglected: No Denominational Healthcare Practices: Uatsdin. 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 occupational exposures/hazards: No Cognitive needs: No Hearing needs: No Vision needs: No Meds Allergies Allergy/AdvReac Type Severity Reaction Status Date / Time No Known Allergies Allergy Verified 03/31/25 06:16 [No Known Allergies*] Active Medications: Current Medications Acetaminophen (Acetaminophen 325 Mg Tablet) 650 mg PO Q6H PRN PRN Reason: Pain, Mild 1-3,fever,headache Aspirin (Aspirin 325 Mg Tablet) 325 mg PO BID [facility] Atenolol (Atenolol 100 Mg Tablet) 100 mg PO DAILY RUBY Celecoxib (Celecoxib 200 Mg Capsule) 200 mg PO BID RUBY Docusate Sodium (Docusate Sodium 100 Mg Capsule) 100 mg PO BID RUBY Famotidine (Famotidine 20 Mg Tablet) 20 mg PO BEDTIME PRN PRN Reason: Acid Reflux Hydrochlorothiazide (Hydrochlorothiazide 25 Mg Tablet) 25 mg PO DAILY [facility] Hydromorphone HCl (Hydromorphone Hcl 0.5 Mg/0.5 Ml Syringe) 0.25 mg IVPUSH Q4H PRN; Protocol PRN Reason: Pain, Severe (Pain Scale 7-10) Lactated Ringer's (Lr) 1,000 mls @ 100 mls/hr IVCONT .Q10H RUBY Stop: 04/01/25 08:00 Last Admin: 03/31/25 12:56 Dose: 100 mls/hr Magnesium Oxide (Magnesium Oxide 400 Mg Tablet) 400 mg PO DAILY [facility] Ondansetron HCl (Ondansetron Hcl 4 Mg/2 Ml Vial) 4 mg IVPUSH Q8H PRN PRN Reason: Nausea and Vomiting Oxycodone HCl (Oxycodone Hcl Immed Release 5 Mg Tablet) 5 mg PO Q4H PRN PRN Reason: Pain, Moderate(Pain Scale 4-6) Oxycodone HCl (Oxycodone Hcl Er 10 Mg Tab.Er.12h) 10 mg PO BID RUBY Sodium Chloride (0.9 % Sodium Chloride Flush 3 Ml Syringe) 3 ml IVFLUSH QSHIFT RUBY Home Medications ?Medication ?Instructions ?Recorded ?Confirmed ?Last Taken ?Type famotidine 20 mg tablet 20 mg PO BEDTIME PRN Acid Reflux 11/12/24 03/31/25 Unknown History Physical Exam 2 Vital Signs and Narrative: Vital Signs: Last Vital Signs Temp 97.2 F 03/31/25 11:23 Pulse 50 03/31/25 13:50 Resp 16 03/31/25 11:23 BP 125/71 03/31/25 13:50 Pulse Ox 100 03/31/25 13:50 O2 Del Method Room Air 03/31/25 11:23 BMI result Body Mass Index 35.9 CONST: Alert and oriented, in NAD. Well nourished. HEENT: Normocephalic, atraumatic, MMM RESP: Lungs clear, RRR even and regular. HEART:,RRR, S1, S2. No calf tenderness. GI:Abdomen Soft NT, ND. + BS times four :Deferred SKIN: Warm dry and intact, Dheeraj wrap and surgical dressing intact to right knee, no strike through drainage, positive CMS to right foot, strong pedal pulse NEURO:CN II-XII Intact bilaterally, Sensation intact. Speech clear PSYCH: Normal affect Results Labs 03/26/25 10:40 03/03/25 13:32 Imaging Radiologist's Impressions: Impressions Knee X-Ray 03/31/25 08:24 IMPRESSION: Post total right knee arthroplasty without complication evident. Electronically signed by: Blade Wheeler MD 03/31/2025 09:40 AM EDT RP Assessment and Plan (1) Essential hypertension: Status: Acute Plan 59-year-old female with a past medical history of hypertension, hyperlipidemia, is admitted for elective right total knee replacement which he underwent today with Dr. Mcdonald. Status post right total knee replacement Plan per Orthopedics Hypertension/hyperlipidemia Continue atenolol and chlorthalidone Continue to follow up blood pressures, resume lisinopril when appropriate. Continue atorvastatin upon discharge Thank you for allowing me to participate in the care of this patient. Signing off at this time. Please reconsult of any acute concerns or issues arise
[2025-03-31] MEDS: oxyCODONE HCl Immed Release 5 MG TABLET PO (14:59)
[2025-03-31] MEDS: Celecoxib 200 MG CAPSULE PO (20:50)
[2025-03-31] MEDS: Docusate Sodium 100 MG CAPSULE PO (20:50)
[2025-03-31] MEDS: oxyCODONE HCl ER 10 MG TAB.ER.12H PO (20:50)
[2025-03-31] MEDS: HYDROmorphone HCl 0.5 MG/0.5 ML SYRINGE 0.25 MG IVPUSH (21:57)
[2025-04-01 03:00] VITALS: BP 102/50; PULSE 46; RESP 19; TEMP 36.7; O2SAT 97
[2025-04-01 06:08] LABS: MANUAL DIFF FLAG NO
[2025-04-01] MEDS: HYDROmorphone HCl 0.5 MG/0.5 ML SYRINGE 0.25 MG IVPUSH (06:13)
[2025-04-01 06:28] LABS: Basophils Percent Auto 0.1 % (0-2); Eosinophils Percent Auto 0.2 % (0-4); Hematocrit 41.1 % (37.0-47.0); Imm Gran Abs Auto 0.06 X10*3/uL (0.00-0.03); Imm Gran Pct Auto 0.4 % (0.0-0.4); Lymphocytes Absolute Auto 1.5 X10*3/uL (1.2-4.9); Lymphocytes Percent Auto 9.8 % (20-40); Mean Corpuscular HGB Conc 34.1 g/dl (31.0-35.0); Mean Corpuscular Hemoglobin 28.9 pg (27.0-33.0); Mean Corpuscular Volume 84.7 fL (80.0-98.0); Mean Platelet Volume 13.1 fL (9.4-12.3); Monocytes Absolute Auto 1.1 X10*3/uL (0.1-1.2); Monocytes Percent Auto 7.6 % (2-11); Neutrophils Absolute Auto 12.2 x10*3/uL (2.0-8.3); Neutrophils Percent Auto 81.9 % (45-73); Platelet Count 143 X10*3/uL (160-400); Red Blood Count 4.85 X10*6/uL (4.20-5.50); Red Cell Distribution Width 12.6 % (11.0-16.0); White Blood Count 14.9 X10*3/uL (4.8-10.8)
[2025-04-01 06:32] LABS: Anion Gap 13 (12-20); Blood Urea Nitrogen 16 mg/dL (9-16); Calcium 9.3 mg/dL (8.4-10.2); Carbon Dioxide 28 mmol/L (22-29); Chloride 105 mmol/L (96-108); Creatinine Clr Calc Pharmacy 93.2; Estimated Glomerular Filt Rate > 60; Glucose Fasting 114 mg/dL (60-99); Potassium 3.5 mmol/L (3.3-5.1); Sodium 142 mmol/L (135-145)
[2025-04-01] MEDS: Celecoxib 200 MG CAPSULE PO (07:06)
[2025-04-01] MEDS: oxyCODONE HCl Immed Release 5 MG TABLET PO (07:06)
[2025-04-01] MEDS: Magnesium Oxide 400 MG TABLET PO (07:06)
[2025-04-01] MEDS: oxyCODONE HCl ER 10 MG TAB.ER.12H PO (07:06)
[2025-04-01] MEDS: Aspirin 325 MG TABLET PO (07:07)
[2025-04-01] MEDS: Lactated Ringers 1,000 ML 100 ML IVCONT (07:07)
[2025-04-01] MEDS: Docusate Sodium 100 MG CAPSULE PO (07:07)
[2025-04-01 07:29] VITALS: BP 130/61; PULSE 56; RESP 18; TEMP 36.4; O2SAT 100
[2025-04-01] MEDS: atenoloL 100 MG TABLET PO (07:29)
[2025-04-01] MEDS: hydroCHLOROthiazide 25 MG TABLET PO (07:29)
--- NOTE | 2025-04-01 07:41 | HO.POSTANES ---
Post Anesthesia Evaluation Post Anesthesia Evaluation Date of Service: 04/01/25 Vital Signs: Vital Signs Temp Pulse Resp BP Pulse Ox O2 Del Method 04/01/25 07:29 97.6 F 56 18 130/61 100 Room Air 04/01/25 03:00 98.1 F 46 L 19 102/50 L 97 Room Air 03/31/25 23:00 97.2 F 56 17 125/60 100 Room Air Anesthesia: Spinal (with peripheral nerve block) Mental Status: Awake Pain Control: Satisfactory Nausea/Vomiting: None Hydration: Adequate Anesthesia-Related Issues: No Anes. Related Issues Comments: pt reporting heel numbness that is improving and resolving. PT at bedside and aware. Instructed to contact us if not continuing to improve and ultimately resolve
[2025-04-01 07:46] VITALS: BP 130/61; PULSE 56; O2SAT 100
--- NOTE | 2025-04-01 09:03 | MHC.CM.PN ---
Patient lives in a home w/ her and dogs. 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 Functionally independent. Has a cane and walker to use post op, that she also used after her last surgery 3 months ago. PCP Maggie Kaba MD Reports she has an HCP naming her as [facility]. Copy requested. DP: Home w/ new [facility] for PT. Medically cleared for dc. at bedside to transport.
== END 2025-04-01 09:40 | disposition home health service (06) ==
LOC: HO.SSS 05:57 → HO.S3 10:52
PROVIDERS: Nurse Practitioner; Physician Assistant; PCP Internal Medicine; Visit Provider Orthopaedic Surgery
PROC: (CPT 27447; principal; 2025-03-31 07:30)
DX: M17.12 Unilateral primary osteoarthritis, left knee (principal); M25.561 Pain in right knee; R26.2 Difficulty in walking, not elsewhere classified; I10 Essential (primary) hypertension; E78.5 Hyperlipidemia, unspecified; N20.0 Calculus of kidney; R06.83 Snoring; G47.30 Sleep apnea, unspecified; K21.9 Gastro-esophageal reflux disease without esophagitis; D51.0 Vitamin B12 deficiency anemia due to intrinsic factor deficiency; D50.9 Iron deficiency anemia, unspecified; E55.9 Vitamin D deficiency, unspecified; E66.01 Morbid (severe) obesity due to excess calories; Z68.36 Body mass index [BMI] 36.0-36.9, adult; Z79.82 Long term (current) use of aspirin; Z79.899 Other long term (current) drug therapy; Z96.652 Presence of left artificial knee joint; Z98.890 Other specified postprocedural states
CPT/HCPCS: 27447; 36415; 73560; 80048; 85025; 85027; 86850; 86900; 86901; 87640; 87641; 88305; 88311; 97110; 97116; 97162; C1713; C1776; J0131; J0665; J0690; J1100; J1171; J2003; J2250; J2405; J2704; J7120

== ENCOUNTER → 2025-03-31 05:57 | Outpatient (BNV) | payer BC, SELFPAY | PROVIDERS: PCP Internal Medicine; Visit Provider Orthopaedic Surgery | DX: Z47.1 Aftercare following joint replacement surgery (principal); Z96.651 Presence of right artificial knee joint | CPT/HCPCS: 27447; 99024; G0180 ==

== ENCOUNTER → 2025-03-31 05:57 | Outpatient (BNV) | payer BC, SELFPAY | PROVIDERS: PCP Internal Medicine; Visit Provider Nurse Practitioner Family | DX: I10 Essential (primary) hypertension (principal) | CPT/HCPCS: 99252 ==

== ENCOUNTER → 2025-03-31 09:15 | Outpatient (BNV) | payer BC, SELFPAY | PROVIDERS: PCP Internal Medicine; Visit Provider Radiology Diagnostic Radiology | DX: M25.461 Effusion, right knee (principal) | CPT/HCPCS: 73560 ==

== ENCOUNTER 2025-04-16 13:48 | Outpatient (AMB) | payer BC, SELFPAY ==
--- NOTE | 2025-04-16 14:04 | MHC.OFFVIS ---
Intake Visit Reasons: 2WKPO: R TKA w/NE 03/31/25 Intake Note: Janina is a 59 year old female who presents today for a post operative visit status post right TKA on 03/31/25. Patient reports that she is doing well, states her most discomfort comes when she is resting. She has concerns of bruising that she would like to discuss with provider. Allergies No Known Allergies (No Known Allergies*) Allergy (Verified 04/16/25 14:07) Medication List - Last Reconciled 04/16/25 by EMILIANO Mitchell-Archana acetaminophen 650 mg (2 x 325 mg) PO Q6H PRN 30 days aspirin 325 mg PO BID 42 days atenolol-chlorthalidone 100-25 mg 1 tab PO DAILY atorvastatin 20 mg PO BEDTIME 90 days blood pressure test kit-large As directed celecoxib 200 mg PO BID 30 days cholecalciferol (vitamin D3) (Vitamin D3) 25 mcg PO DAILY cyanocobalamin (vitamin B-12) 1,000 mcg PO DAILY 90 days docusate sodium 100 mg PO BID 30 days famotidine 20 mg PO BEDTIME PRN lisinopril 40 mg PO DAILY 90 days magnesium oxide 500 mg PO DAILY 90 days oxycodone 5 mg PO Q6H PRN 7 days walker Folding front wheeled walker HPI HPI 2WKPO: R TKA w/NE 03/31/25: Details: 59-year-old female returns to the office today 2 weeks status post right total knee arthroplasty with Dr. Mcdonald on 03/31/2025. She states she has been struggling with some pain at nighttime but during the day she has been doing well. She is transitioning to outpatient physical therapy. [facility] [place] Medical History Kidney stones Habitual snoring Sleep apnea GERD (gastroesophageal reflux disease) Morbid obesity with BMI of 40.0-44.9, adult Obese Mixed hyperlipidemia Pernicious anemia Iron (Fe) deficiency anemia (~08/31/20) B12 deficiency anemia Hypovitaminosis D Essential hypertension Surgical History Hx of wisdom tooth extraction History of left knee replacement H/O colonoscopy History of eye surgery History of Family History Father Hypertension COPD (chronic obstructive pulmonary disease) CAD (coronary artery disease) Mother Hypertension Maternal Grandmother Ovarian cancer Social History (Reviewed 04/16/25 @ 14:07 by Jenny Recio COUNT INCLUDES THE [facility]) Household Members: Spouse and Family Housing: House Are you a primary caregivers homecare to a significant other at home: No Do you presently have visiting nurse or other home services: No Alcohol intake: current Alcohol intake frequency: holidays/special occasions only Alcohol type: beer and wine Patient Tobacco Use Status: Never used Tobacco e-Cigarette/Vaping Use: Never Used Second Hand Smoke Exposure: Yes service: No Current occupational status: employed 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 She can activate her quad and range of motion is 0-95 degrees. Calf supple and nontender neurovascularly intact. Assessment & Plan Assessment & Plan (1) Status post total right knee replacement: Code(s): Z96.651 - Presence of right artificial knee joint Category: Surgical Plan: [place] removed today Steri-Strips applied. She will continue with her physical therapy services. I did review with her her pain management regimen which includes oxycodone 5 mg I encouraged her to take 1 tablet in the morning and afternoon and she can take 2 tablets at night. She does not need to take the daytime tablets if not needed as she states her pain has been minimal during the day. I did encourage her to take the Tylenol and Celebrex for the next 6 weeks to help with discomfort and swelling. She will continue with aspirin for another 4 weeks. She will see us back in [address] Mcdonald, sooner if needed. Coding Level of Care Code Global (09924) Diagnoses Status post total right knee replacement Z96.651
== END 2025-04-16 14:47 | disposition home or self-care (01) ==
LOC: HO.HOS 13:48
PROVIDERS: Visit Provider Physician Assistant
DX: Z96.651 Presence of right artificial knee joint (principal)
CPT/HCPCS: 99024

== ENCOUNTER 2025-05-01 08:35 | Outpatient (AMB) | payer BC, SELFPAY ==
--- NOTE | 2025-05-01 08:42 | MHC.OFFVIS ---
Intake Visit Reasons: OV-L TKA w/NE 12/17/24-w/xrays Intake Note: Janina is a 59 year old female who presents today for a follow up appointment s/p left total knee arthroplasty 12/17/24 NE. Patient reports she is doing great with no pain. Allergies No Known Allergies (No Known Allergies*) Allergy (Verified 05/01/25 08:58) HPI HPI OV-L TKA w/NE 12/17/24-w/xrays: Details: Ms. Heller this is a 59-year-old female who presents to the office today for routine follow-up status post left total knee arthroplasty performed on 12/17/[address] Mcdonald. Patient states that she has not have any pain or concerns. She denies any issues with range of motion. She has completed all physical therapy sessions and returned back to normal activities. [facility] Medical History Kidney stones Habitual snoring Sleep apnea GERD (gastroesophageal reflux disease) Morbid obesity with BMI of 40.0-44.9, adult Obese Mixed hyperlipidemia Pernicious anemia Iron (Fe) deficiency anemia (~08/31/20) B12 deficiency anemia Hypovitaminosis D Essential hypertension Surgical History Hx of wisdom tooth extraction History of left knee replacement H/O colonoscopy History of eye surgery History of Family History Father Hypertension COPD (chronic obstructive pulmonary disease) CAD (coronary artery disease) Mother Hypertension Maternal Grandmother Ovarian cancer Social History Household Members: Spouse and Family Housing: House Are you a primary home care and home health aides teacher to a significant other at home: No Do you presently have visiting nurse or other home services: No Alcohol intake: current Alcohol intake frequency: holidays/special occasions only Alcohol type: beer and wine Patient Tobacco Use Status: Never used Tobacco e-Cigarette/Vaping Use: Never Used Second Hand Smoke Exposure: Yes service: No Current occupational status: employed 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 There is no sign of infection. No open areas. Range of motion is 0 to 130. No laxity with varus or valgus stress. NVI. Assessment & Plan Assessment & Plan (1) Status post total left knee replacement: Code(s): Z96.652 - Presence of left artificial knee joint Category: Surgical Plan Ms. Heller this is a 59-year-old female who presents to the office today for routine follow-up status post left total knee arthroplasty performed on 12/17/[address] Mcdonald. Patient states that she has not have any pain or concerns. She denies any issues with range of motion. She has completed all physical therapy sessions and returned back to normal activities. While in the office today, the patient states overall she is doing very well and has returned back to all activities she was doing prior to surgery pain-free. She has completed all physical therapy sessions and has great range of motion. She will follow up at the 1 year postoperative diana with repeat x-rays, sooner if needed. X-rays of the right knee which were obtained while in the office today and were reviewed by me, Francisca Malcolm PA-C, revealed bilateral knee intact total knee arthroplasties with no evidence of hardware loosening or periprosthetic fracture. Orders: Orders XR knee RT 3V Today M25.569 - Pain in unspecified knee Coding Level of Care Code Est Pt Level 3 (44611) Diagnoses Status post total left knee replacement Z96.652
== END 2025-05-01 09:32 | disposition home or self-care (01) ==
LOC: HO.HOS 08:36
PROVIDERS: PCP Internal Medicine; Visit Provider Physician Assistant
DX: Z47.1 Aftercare following joint replacement surgery (principal); Z96.653 Presence of artificial knee joint, bilateral
CPT/HCPCS: 99213

== ENCOUNTER → 2025-05-01 08:47 | Outpatient (BNV) | payer BC, SELFPAY | PROVIDERS: Visit Provider Radiology Diagnostic Radiology | DX: M25.561 Pain in right knee (principal) | CPT/HCPCS: 73562 ==

== ENCOUNTER 2025-05-01 08:52 | Outpatient (REF) | payer BC, SELFPAY ==
--- NOTE | ~2025-05-01 | XR_ITS ---
EXAMINATION: XR KNEE 3 VIEWS RIGHT HISTORY: M25.569 - Pain in unspecified knee COMPARISON: Comparison is made with the prior examination dated 03/31/2025. FINDINGS: Standing AP views of both knees as well as additional lateral and sunrise patellar views of the right knee are submitted. The patient is status post total knee arthroplasty. There is a longitudinally oriented linear lucency just above the lateral aspect of the femoral prosthesis which could represent a nondisplaced fracture. There is a small joint effusion. The patient is status post left total knee arthroplasty. XR/XR knee RT 3V IMPRESSION: Status post right total knee arthroplasty. Possible nondisplaced fracture of the lateral distal femur, just above the prosthesis. A report was sent to Francisca Malcolm by secure text message on 05/01/2025 at 9:16 AM. A secure text message was also sent to the Ortho fleet salesperson, Eddie Fu, on 05/01/2025 at 9:25 AM, and acknowledged as read. Electronically signed by: Rocky Davis MD 05/01/2025 09:27 AM EDT
== END 2025-05-01 08:53 | disposition home or self-care (01) ==
LOC: HO.HOSX 08:52
PROVIDERS: Visit Provider Physician Assistant
DX: M25.561 Pain in right knee (principal); Z96.652 Presence of left artificial knee joint
CPT/HCPCS: 73562

== ENCOUNTER 2025-05-07 13:04 | Outpatient (AMB) | payer BC, SELFPAY ==
--- NOTE | 2025-05-07 13:08 | A.OFFVIS_ITS ---
Intake Visit Reasons: 6WKPO: R TKA w/NE 03/31/25 Intake Note: Janina is a 59 year old female who presents today for a post operative appointment s/p Right TKA 03/31/25. At her last visit she reported having increased pain at night; because of this we advised that she should try taking 1tab of oxycodone in the AM and 2tablets at night. Allergies No Known Allergies (No Known Allergies*) Allergy (Verified 05/01/25 08:58) HPI HPI 6WKPO: R TKA w/NE 03/31/25: Details: Janina is a 59 year old female who presents today for a post operative appointment s/p Right TKA 03/31/25. At her last visit she reported having increased pain at night; because of this we advised that she should try taking 1tab of oxycodone in the AM and 2tablets at night. Her radiographs at last visit were questionable for small cortical break versus nutrient vessel. Overall she feels great. She has no pain for the most part and is walking with a cane because we recommended it but not cut she wants to use it. [facility] Medical History Kidney stones Habitual snoring Sleep apnea GERD (gastroesophageal reflux disease) Morbid obesity with BMI of 40.0-44.9, adult Obese Mixed hyperlipidemia Pernicious anemia Iron (Fe) deficiency anemia (~08/31/20) B12 deficiency anemia Hypovitaminosis D Essential hypertension Surgical History Hx of wisdom tooth extraction History of left knee replacement H/O colonoscopy History of eye surgery History of Family History Father Hypertension COPD (chronic obstructive pulmonary disease) CAD (coronary artery disease) Mother Hypertension Maternal Grandmother Ovarian cancer Social History Household Members: Spouse and Family Housing: House Are you a primary student career development specialist to a significant other at home: No Do you presently have visiting nurse or other home services: No Alcohol intake: current Alcohol intake frequency: holidays/special occasions only Alcohol type: beer and wine Patient Tobacco Use Status: Never used Tobacco e-Cigarette/Vaping Use: Never Used Second Hand Smoke Exposure: Yes service: No Current occupational status: employed 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 There is no palpable pain. There is no difficulty with ambulation. Her motion is excellent from 0-130 degrees and she is stable to varus and valgus stress. Results Reviewed Results Reviewed: I personally reviewed relevant radiographs. Status post right total knee replacement with expected postoperative alignment and no evidence of loosening. There is a question of a possible nondisplaced fracture does above the prosthesis over the lateral distal femur visible on the AP x-ray only. Assessment & Plan Assessment & Plan (1) Status post total right knee replacement: Code(s): Z96.651 - Presence of right artificial knee joint Category: Surgical Plan: 59-year-old status post right knee replacement. She feels great overall she is doing well but the x-rays show a questionable small fracture. It is unlikely given her lack of pain but it is possible in this setting that we could see a nondisplaced femoral fracture that would only be an issue in the 1st 3 months with potential for propagation with twisting activities. Given this I recommend that she do use a cane when she is out of the house for another 6 weeks. She understands the risk of fracture and we will see her back in 6 weeks with radiographs. Coding Level of Care Code Global (06391) Diagnoses Status post total right knee replacement Z96.651
== END 2025-05-07 13:18 | disposition home or self-care (01) ==
LOC: HO.HOS 13:05
PROVIDERS: Visit Provider Orthopaedic Surgery
DX: Z96.651 Presence of right artificial knee joint (principal)
CPT/HCPCS: 99024

== ENCOUNTER 2025-06-12 10:54 | Outpatient (AMB) | payer BC, SELFPAY ==
[2025-06-12 11:04] VITALS: BP 128/90; PULSE 64; O2SAT 95; BMI 33.9
--- NOTE | 2025-06-12 11:04 | MHC.PC.OV ---
Vital Signs 06/12/25 11:04 06/12/25 11:43 Height 5 ft 2 in Weight 185 lb 8 oz BMI 33.9 BP 128/90 H 118/72 Blood Pressure Location Lt brachial Lt brachial Position Sitting Sitting Pulse 64 Pulse Source Pulse Oximeter Pulse Oximetry (%) 95 Oxygen Delivery Method Room Air Intake Visit Reasons: annual exam Char House Supervisor Required: No Accompanied by: Self / Same As Patient Allergies No Known Allergies (No Known Allergies*) Allergy (Verified 06/12/25 11:23) Medication List - Last Reconciled 06/12/25 by Cathi Coker PA-C acetaminophen 650 mg (2 x 325 mg) PO Q6H PRN 30 days aspirin 325 mg PO BID 42 days atenolol-chlorthalidone 100-25 mg 1 tab PO DAILY atorvastatin 20 mg PO BEDTIME 90 days blood pressure test kit-large As directed cholecalciferol (vitamin D3) (Vitamin D3) 25 mcg PO DAILY cyanocobalamin (vitamin B-12) 1,000 mcg PO DAILY 90 days docusate sodium 100 mg PO BID lisinopril 40 mg PO DAILY 90 days magnesium oxide 500 mg PO DAILY 90 days walker Folding front wheeled walker Tobacco use date assessed: 06/12/25 Dental Screening Dental Screen Date: 02/02/25 Did you have a dental visit in the last 12 months?: No Did you have a dental problem in the last 6 months where you did not have access to dental care?: No Was dental information given to patient?: No HPI annual exam HPI Details 59-year-old female with past medical history of iron-deficiency anemia, vitamin-D deficiency, hyperlipidemia, depression last seen 01/[address] Quigley coming in for annual exam. In review of the notes, patient was seen by Orthopedics 04/2025 s/p R TKR recommending use of a cane for 6 weeks with follow up at that time. Presenting with a wellness visit and management of chronic conditions. The patient experiences anxiety and depression, attributed to work stress and recovery from surgeries. The patient experiences constipation, which she manages with stool softeners and acknowledges a low water intake as a contributing factor. The patient has slightly elevated blood glucose levels, not reaching diabetic thresholds, and is monitored through regular blood work. The patient has been actively managing her weight, losing 60 pounds since October through [employer]. Noted 20 lb weight loss since last visit Mammogram: ordered today Eye exam: referral placed today Pap smear: referral placed to clinical systems analyst Colonoscopy: 2019 Dr. Proctor vaccines: [facility] Medical History Kidney stones Habitual snoring Sleep apnea GERD (gastroesophageal reflux disease) Morbid obesity with BMI of 40.0-44.9, adult Obese Mixed hyperlipidemia Pernicious anemia Iron (Fe) deficiency anemia (~08/31/20) B12 deficiency anemia Hypovitaminosis D Essential hypertension Surgical History Hx of wisdom tooth extraction History of left knee replacement H/O colonoscopy History of eye surgery History of Family History Father Hypertension COPD (chronic obstructive pulmonary disease) CAD (coronary artery disease) Mother Hypertension Maternal Grandmother Ovarian cancer Social History Household Members: Spouse and Family Housing: House Are you a primary nanny caregiver to a significant other at home: No Do you presently have visiting nurse or other home services: No Alcohol intake: current Alcohol intake frequency: holidays/special occasions only Alcohol type: beer and wine Patient Tobacco Use Status: Never used Tobacco e-Cigarette/Vaping Use: Never Used Second Hand Smoke Exposure: Yes service: No Current occupational status: employed 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 1. Little interest or pleasure in doing things: not at all 2. Feeling down, depressed, or hopeless: not at all 3. Trouble falling or staying asleep, or sleeping too much: not at all 4. Feeling tired or having little energy: not at all 5. Poor appetite or overeating: not at all 6. Feeling bad about yourself - or that you are a failure or have let yourself or your family down: not at all 7. Trouble concentrating on things, such as reading the newspaper or watching television: not at all 8. Moving or speaking so slowly that other people could have noticed. Or the opposite - being so fidgety or restless that you have been moving around a lot more than usual: not at all 9. Thoughts that you would be better off or of hurting yourself in some way: not at all Total score: 0 Depression Screening Interpretation: Negative Depression Screening Done: Yes 97435 - PHQ-9 Billing: Yes Source: Developed by Drs. Rocky Palm, Dipti Solares, Shaka Crandall and colleagues, with an educational chio from [employer] Thrive Questionnaire Date Thrive assessed: 06/12/25 I am a: Patient What is your living situation today?: I have a steady place to live Within the past 12 months, did the food you bought not last and you didn't have the money to get more?: Never true Within the past 12 months, did you worry whether your food would run out before you got money to buy more?: Never true Do you have trouble paying for medicines?: No Do you have trouble getting transportation to medical appointments?: No Do you have trouble paying your heating and electricity bill?: No Do you have trouble taking care of your child, family member or friend?: No Do you have trouble with day-to-day activities such as bathing, preparing meals, shopping, managing finances, etc.?: No Are you currently unemployed and looking for a job?: No Are you interested in more education?: No Please select the resources that you would like help with: None Currently or been in a relationship where the following occur: No concerns reported THRIVE Score: 0 AUDIT C Alcohol Use Questionnaire (AUDIT-C) 1. How often do you have a drink containing alcohol?: Monthly or less Total Score: 1 NEDRA-7 AMB Questionnaire NEDRA-7 Date NEDRA - 7 assessed: 06/12/25 Feeling nervous, anxious, or on edge: 1 = Several days Not being able to stop or control worryin = Not at all Worrying too much about different things: 1 = Several days Trouble relaxin = Not at all Being so restless that it is hard to sit still: 0 = Not at all Becoming easily annoyed or irritable: 0 = Not at all Feeling afraid as if something awful might happen: 0 = Not at all Total NEDRA-7 score (0-4 normal; 5-9 mild; 10-14 moderate; 15-21 severe): 2 Source: Developed by Drs. Rocky Palm, Dipti Solares, Shaka Crandall and colleagues, with an educational chio from [employer] NEDRA-7 Assessment Billing NEDRA-7 Assessment Tool: NEDRA-7 Assessment 53353 Review of Systems Const Denies body aches, Denies fatigue, Denies fever(s), Denies frequent falls, Denies headache(s) and Denies weakness Eyes Reports no additional complaints and Denies change in vision ENT Denies dysphagia, Denies dizziness, Denies facial pain, Denies headache(s), Denies nasal congestion and Denies odynophagia Card Denies chest pain, Denies syncope, Denies irregular heart rhythm, Denies leg edema, Denies lightheadedness and Denies dyspnea Resp Denies cough and Denies dyspnea GI Denies abdominal pain, Reports constipation, Denies dysphagia, Denies dyspepsia, Denies diarrhea, Denies nausea, Denies odynophagia and Denies vomiting Denies urinary frequency, Denies dysuria, Denies urinary hesitancy and Denies urinary urgency Musc Denies back pain and Denies myalgias Skin/Breast Reports system reviewed and no additional complaints, except as documented Neuro Denies dizziness, Denies syncope, Denies frequent falls, Denies headache(s) and Denies weakness Psych Reports no additional complaints Endo Denies fatigue Physical exam (Primary Care) Vital Signs: Last Vital Signs Pulse 64 06/12/25 11:04 BP 118/72 06/12/25 11:43 Pulse Ox 95 06/12/25 11:04 Oxygen Delivery Method Room Air 06/12/25 11:04 BMI result Body Mass Index 33.9 Tobacco/Smoking Status: Tobacco use Status Tobacco use date assessed 06/12/25 06/12/25 11:10 Patient Tobacco Use Status Never used Tobacco 06/12/25 11:10 e-Cigarette/Vaping Use Never Used 06/12/25 11:10 PHQ-9: PHQ-9 Score PHQ-9: Total score 0 06/12/25 11:25 Depression Screening Interpretation: Negative Thrive Assessment: Date of Thrive Assessment Date Thrive assessed 06/12/25 06/12/25 11:10 Currently or been in a relationship where the following occur: No concerns reported Const General: cooperative, healthy appearing, comfortable and no acute distress Orientation/consciousness: patient oriented x3 HENMT Head: Yes normocephalic Ears: hearing grossly normal bilaterally and Abnormal EAC present excessive cerumen bilateral General nose exam: Normal external nose present Eyes General: appearance normal, both eyes and all related structures Conjunctivae: conjunctivae normal Neck Neck: Yes full ROM and Yes no lymphadenopathy Resp Effort & Inspection: normal respiratory effort Auscultation: clear to auscultation bilaterally, no crackles, no rales, no rhonchi and no wheezes Cardio Rate: regular rate Rhythm: regular rhythm Skin General skin exam: no rashes or lesions noted Neuro General: patient oriented x3 Gait exam (Neuro): Normal gait present Extrem General: Yes normal to inspection, Yes full ROM and No edema Psych Affect: normal affect Attitude: cooperative Insight: Good insight present (Psych) Judgement: Good judgement present (Psych) Office Procedures Cerumen Removal From which ear canal was the cerumen removed: bilateral Removal: cerumen loop/spoon Notes: patient tolerated procedure well, no complications and ear canal clear [id number] Wax Removal by Spoon/Curette Results AMB Hemoglobin A1c AMB Hemoglobin A1c 4.9 % Last Edit by Nathaly Lundberg CMA on 06/12/25 11:41 Results Reviewed Results Reviewed: Laboratory Last Values Hgb A1c (Clinic) 4.9 % (4.0-6.0) 06/12/25 11:41 Coding Level of Care Code Est Pt Prev Care 40-64y(84124) Diagnoses Physical exam Z00.00 Mild recurrent major depression F33.0 Mixed hyperlipidemia E78.2 Hypovitaminosis D E55.9 Iron deficiency anemia, unspecified iron deficiency anemia type D50.9 Iron deficiency anemia type: unspecified iron deficiency Status post total right knee replacement Z96.651 Cerumen impaction H61.20 Obesity (BMI 30-39.9) E66.9 CPT Codes Office Procedure - CPT: 82215-Alr Wax Removal by Spoon/Curette ([id number]) Additional Codes NEDRA-7 Assessment Billing - NEDRA-7 Assessment Tool: NEDRA-7 Assessment 62138 ([id number]) PHQ-9 - 25624 - PHQ-9 Billing: Yes ([id number]) Assessment & Plan Assessment & Plan (1) Physical exam: Code(s): Z00.00 - Encounter for general adult medical examination without abnormal findings Category: Medical Plan: Patient is due for mammogram which for ordered have been placed today and gynecology order has been placed as well for updated Pap smears. Otherwise patient is up-to-date on all recommended routine screenings and vaccinations for her age. I did order for updated blood work and plan to follow up in [address] Quigley (2) Mild recurrent major depression: Code(s): F33.0 - Major depressive disorder, recurrent, mild Category: Medical Plan: Declining medical management or counseling at this time and feels good without the services. (3) Mixed hyperlipidemia: Code(s): E78.2 - Mixed hyperlipidemia Category: Medical Plan: Avoid foods that are high in cholesterol such as red meat, fried foods, eggs and baked goods. Triglyceride goal of less than 150 and LDL goal of less than 130. Continue on atorvastatin 20. Repeat blood work ordered (4) Hypovitaminosis D: Code(s): E55.9 - Vitamin D deficiency, unspecified Category: Medical Plan: Patient is currently on supplement and plan to order for repeat blood work (5) Iron (Fe) deficiency anemia: Onset Date: ~08/31/20 Code(s): D50.9 - Iron deficiency anemia, unspecified Category: Medical Qualifiers: Iron deficiency anemia type: unspecified iron deficiency Qualified Code(s): D50.9 - Iron deficiency anemia, unspecified Plan: Ordered for repeat blood work including iron profile and continue on supplementation. (6) Status post total right knee replacement: Code(s): Z96.651 - Presence of right artificial knee joint Category: Surgical Plan: Continue to follow with Orthopedics at this time. (7) Cerumen impaction: Code(s): H61.20 - Impacted cerumen, unspecified ear Category: Medical Plan: Bilateral ears were cleaned using lighted curette and TMs were visualized as intact well aerated middle ear spaces without perforation or retraction. Patient tolerated the procedure well and left the room without complication. Follow up as needed for this concern (8) Obesity (BMI 30-39.9): Code(s): E66.9 - Obesity, unspecified Category: Medical Plan: Healthy diet and regular exercise is encouraged. Noted 20 lb weight loss since last visit. Plan During the visit, we discussed the management of knee pain and the potential fracture, emphasizing the importance of using a cane to prevent falls. We addressed the patient's anxiety and depression, offering counseling if needed. For constipation, we recommended increasing water intake and considering fiber supplements. We advised monitoring heartburn triggers and managing anemia with dietary adjustments. The patient's slightly elevated blood glucose levels will be monitored regularly. Earwax buildup was treated, and regular cleaning was recommended. We encouraged continued weight management efforts and discussed upcoming preventative screenings, including a mammogram and Pap smear. This note was constructed using voice recognition software. While every effort has been made to ensure accuracy and wire mesh gate assembler, still areas may have been included sometimes these areas may affect the content or meeting of the given symptoms. Total time spent caring for the patient today was 30 minutes. This includes time spent before the visit reviewing the chart, time spent during the visit, and time spent after the visit and documentation. Patient was informed and verbally consented to the use of an ambient scribe for clinic note documentation during this visit. Orders: Orders Vitamin D 25-OH Total Today E55.9 - Vitamin D deficiency, unspecified, Z13.21 - Encounter for screening for nutritional disorder Comprehensive Met. Panel Today E87.6 - Hypokalemia, Z00.00 - Encounter for general adult medical examination without abnormal findings Lipid Panel Today E78.00 - Pure hypercholesterolemia, unspecified MM tomosynthesis screening BI Today Z12.31 - Encounter for screening mammogram for malignant neoplasm of breast AMB Hemoglobin A1c Today Z13.9 - Encounter for screening, unspecified Complete Blood Count Auto Diff Today D50.9 - Iron deficiency anemia, unspecified, Z00.00 - Encounter for general adult medical examination without abnormal findings Vitamin B12 and Folate Today D51.0 - Vitamin B12 deficiency anemia due to intrinsic factor deficiency, Z13.21 - Encounter for screening for nutritional disorder TSH reflex Free T4 Today Z13.29 - Encounter for screening for other suspected endocrine disorder IRON PROFILE Today D50.9 - Iron deficiency anemia, unspecified Referrals [facility] Referral Z12.4 - Encounter for screening for malignant neoplasm of cervix Optometry Referral Z00.00 - Encounter for general adult medical examination without abnormal findings Medications: Refilled cholecalciferol (vitamin D3) (Vitamin D3) 25 mcg PO DAILY 30 caps 0RF magnesium oxide 500 mg PO DAILY 90 caps 3RF 90 days cyanocobalamin (vitamin B-12) 1,000 mcg PO DAILY 90 tabs 3RF 90 days
[2025-06-12 11:43] VITALS: BP 118/72
== END 2025-06-12 12:02 | disposition home or self-care (01) ==
LOC: HO.HMCH 10:54
PROVIDERS: PCP Internal Medicine
DX: Z00.00 Encounter for general adult medical examination without abnormal findings (principal); F33.0 Major depressive disorder, recurrent, mild; E78.2 Mixed hyperlipidemia; E55.9 Vitamin D deficiency, unspecified; D50.9 Iron deficiency anemia, unspecified; Z96.651 Presence of right artificial knee joint; H61.23 Impacted cerumen, bilateral; E66.9 Obesity, unspecified; Z13.9 Encounter for screening, unspecified

== ENCOUNTER 2025-06-12 10:54 | Outpatient (REF) | payer BC, SELFPAY ==
[2025-06-12 12:21] LABS: MANUAL DIFF FLAG NO
[2025-06-12 14:22] LABS: Hematocrit 41.2 % (37.0-47.0); Hemoglobin 14.1 g/dl (12.0-16.0); Imm Gran Abs Auto 0.02 X10*3/uL (0.00-0.03); Imm Gran Pct Auto 0.4 % (0.0-0.4); Lymphocytes Absolute Auto 1.7 X10*3/uL (1.2-4.9); Mean Corpuscular HGB Conc 34.2 g/dl (31.0-35.0); Mean Corpuscular Hemoglobin 29.0 pg (27.0-33.0); Mean Corpuscular Volume 84.8 fL (80.0-98.0); NRBC Abs Auto 0.000 X10*3/uL (0.0-0.012); NRBC Pct Auto 0.0 /100WBC (0.0-0.2); Platelet Count 151 X10*3/uL (160-400); Red Blood Count 4.86 X10*6/uL (4.20-5.50); White Blood Count 5.4 X10*3/uL (4.8-10.8)
[2025-06-12 15:01] LABS: Alanine Aminotransferase 15 U/L (0-31); Albumin Level 4.1 g/dL (3.5-5.0); Alkaline Phosphatase 71 U/L (39-117); Anion Gap 13 (12-20); Aspartate Amino Transferase 23 U/L (5-31); Blood Urea Nitrogen 23 mg/dL (9-16); Calcium 9.5 mg/dL (8.4-10.2); Carbon Dioxide 29 mmol/L (22-29); Chloride 105 mmol/L (96-108); Cholesterol 141 mg/dL (<200); Estimated Glomerular Filt Rate > 60; HDL Cholesterol 42 mg/dL (>40); Iron 77 mcg/dL (30-160); Percent Iron Saturation 27 % (15-50); Potassium 3.7 mmol/L (3.3-5.1); Sodium 143 mmol/L (135-145); Total Iron Binding Capacity 286 mcg/dL (228-428); Total Protein 6.4 g/dL (6.5-8.0); Triglycerides 90 mg/dL (<150); Unsaturated Iron Binding 209 ug/dL
[2025-06-12 15:51] LABS: Folate 3.9 ng/mL (> or = 4.0); Vitamin B12 435 pg/mL (200-900)
== END 2025-06-12 10:55 | disposition home or self-care (01) ==
LOC: HO.LAB 10:54
PROVIDERS: PCP Internal Medicine
DX: Z00.00 Encounter for general adult medical examination without abnormal findings (principal); Z13.9 Encounter for screening, unspecified; E55.9 Vitamin D deficiency, unspecified; D50.9 Iron deficiency anemia, unspecified; F33.0 Major depressive disorder, recurrent, mild; E78.2 Mixed hyperlipidemia; H61.20 Impacted cerumen, unspecified ear; E66.9 Obesity, unspecified; H61.23 Impacted cerumen, bilateral; Z96.651 Presence of right artificial knee joint
CPT/HCPCS: 36415; 69210; 80053; 80061; 82306; 82607; 82746; 83036; 83540; 84443; 85025; 96127

== ENCOUNTER 2025-06-18 07:52 | Outpatient (REF) | payer BC, SELFPAY ==
--- NOTE | ~2025-06-18 | XR_ITS ---
EXAMINATION: XR KNEE, RIGHT CLINICAL INFORMATION: M25.561 - Pain in right knee COMPARISON: 05/01/2025 TECHNIQUE: AP view bilateral knees standing, lateral and patellofemoral views right knee. FINDINGS: LEFT Knee: Total left knee arthroplasty. Femoral and tibial components intact, well seated, in anatomic alignment. No duplication evident. Normal-appearing soft tissues. RIGHT Knee: There is been a total right knee arthroplasty. Femoral, tibial components are intact, well seated, in anatomic alignment. There has been patellar resurfacing. There is normal patellar alignment. A subtle lucent line is again noted involving the lateral femoral metadiaphysis, just above the prosthesis, only seen on the AP view, possibly representing a nondisplaced fracture versus artifact. Small joint effusion. Normal-appearing soft tissues XR/XR knee RT 3V IMPRESSION: 1. Similar appearing subtle lucent line involving the RIGHT lateral femoral metadiaphysis, just above the prosthesis, only seen on the AP view, possibly representing a nondisplaced fracture. This is largely unchanged from the most recent exam of 05/01/2025. Electronically signed by: Blade Wheeler MD 06/18/2025 11:20 AM EDT
== END 2025-06-18 07:53 | disposition home or self-care (01) ==
LOC: HO.HOSX 07:52
PROVIDERS: Visit Provider Orthopaedic Surgery
DX: M25.561 Pain in right knee (principal)
CPT/HCPCS: 73562

== ENCOUNTER 2025-06-18 10:04 | Outpatient (REF) | payer BC, SELFPAY ==
[2025-06-19 22:49] LABS: Rubeola IgG (Measles) <13.50 AU/mL
== END 2025-06-18 10:05 | disposition home or self-care (01) ==
LOC: HO.LAB 10:04
PROVIDERS: PCP Internal Medicine; Visit Provider Internal Medicine
DX: Z47.1 Aftercare following joint replacement surgery (principal); M25.561 Pain in right knee; Z96.651 Presence of right artificial knee joint; Z01.84 Encounter for antibody response examination
CPT/HCPCS: 36415; 86735; 86762; 86765

== ENCOUNTER 2025-06-18 10:57 | Outpatient (AMB) | payer BC, SELFPAY ==
--- NOTE | 2025-06-18 10:59 | MHC.OFFVIS ---
Vital Signs 06/18/25 11:10 Height 5 ft 2 in Weight 185 lb BMI 33.8 Intake Visit Reasons: PO-Right TKA 03/31/25 With XR Intake Note: Janina is a 59 year old female who presents today for a post operative appointment about 11 weeks s/p Right TKA 03/31/25. At her last visit there was a possible finding of a small fracture, she was advised to ambulate with a cane and avoid twisting. She continues to work with [facility]. Patient reports that she is doing well with no current concerns. Allergies No Known Allergies (No Known Allergies*) Allergy (Verified 06/12/25 11:23) HPI HPI PO-Right TKA 03/31/25 With XR: Details: Janina is a 59 year old female who presents today for a post operative appointment about 11 weeks s/p Right TKA 03/31/25. At her last visit there was a possible finding of a small fracture, she was advised to ambulate with a cane and avoid twisting. She continues to work with [facility]. Patient reports that she is doing well with no current concerns. [facility] Medical History Kidney stones Habitual snoring Sleep apnea GERD (gastroesophageal reflux disease) Morbid obesity with BMI of 40.0-44.9, adult Obese Mixed hyperlipidemia Pernicious anemia Iron (Fe) deficiency anemia (~08/31/20) B12 deficiency anemia Hypovitaminosis D Essential hypertension Surgical History Hx of wisdom tooth extraction History of left knee replacement H/O colonoscopy History of eye surgery History of Family History Father Hypertension COPD (chronic obstructive pulmonary disease) CAD (coronary artery disease) Mother Hypertension Maternal Grandmother Ovarian cancer Social History Household Members: Spouse and Family Housing: House Are you a primary rn care transition to a significant other at home: No Do you presently have visiting nurse or other home services: No Alcohol intake: current Alcohol intake frequency: holidays/special occasions only Alcohol type: beer and wine Patient Tobacco Use Status: Never used Tobacco e-Cigarette/Vaping Use: Never Used Second Hand Smoke Exposure: Yes service: No Current occupational status: employed 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 0-130 Stable to varus valgus stress Vital Signs: BMI result Body Mass Index 33.8 Results Reviewed Results Reviewed: I personally reviewed relevant radiographs. Right total knee arthroplasty in expected post operative position with no hardware complications or evidence of loosening Assessment & Plan Assessment & Plan (1) Status post total right knee replacement: Code(s): Z96.651 - Presence of right artificial knee joint Category: Surgical Plan: Status post right knee replacement doing well. She recently went to [facility] and walk 10,000 steps in a day and fell no pain. Her radiographs are unremarkable. Follow up in 1 year. Orders: Orders XR knee RT 3V Today M25.561 - Pain in right knee Coding Level of Care Code Global (98283) Diagnoses Status post total right knee replacement Z96.651
[2025-06-18 11:10] VITALS: BMI 33.8
== END 2025-06-18 11:56 | disposition home or self-care (01) ==
LOC: HO.HOS 10:58
PROVIDERS: Visit Provider Orthopaedic Surgery
DX: Z96.651 Presence of right artificial knee joint (principal)
CPT/HCPCS: 99024

== ENCOUNTER → 2025-06-18 10:59 | Outpatient (BNV) | payer BC, SELFPAY | PROVIDERS: Visit Provider Radiology Diagnostic Radiology | DX: M25.461 Effusion, right knee (principal) | CPT/HCPCS: 73562 ==

== ENCOUNTER 2025-07-25 08:07 | Outpatient (REF) | payer BC, SELFPAY | END 2025-07-25 08:08 | disposition home or self-care (01) | LOC: HO.MAMMO 08:07 | DX: Z12.31 Encounter for screening mammogram for malignant neoplasm of breast (principal) | CPT/HCPCS: 77063; 77067 ==

== ENCOUNTER → 2025-07-25 08:15 | Outpatient (BNV) | payer BC, SELFPAY | PROVIDERS: Visit Provider Radiology Body Imaging | DX: Z12.31 Encounter for screening mammogram for malignant neoplasm of breast (principal) | CPT/HCPCS: 77063; 77067 ==

== ENCOUNTER 2025-08-24 09:45 | Outpatient (RCR) | payer BC, SELFPAY ==
--- NOTE | 2025-04-20 12:01 | MHC.PT.EP ---
[facility] [place] Office [place] [facility] [place] [facility] [address] Armaan Sawant [address] [phone] F: [phone] F: [phone] F: [phone] F: [phone] Physical Therapy Plan of Care Date of Evaluation: 04/20/25 Date of Surgery: 03/31/25 Diagnosis: RIGHT TKA (DOS: 03/31/25, Dr. Mcdonald) RS Assessment: Janina Heller : 69 is a pleasant, motivated 59 y.o. female who is referred to PT by Eddie Fu PA-C of [facility] [place] Orthopedics, surgery performed by Dr. Suleman Mcdonald MD, with Dx of RIGHT TKA (03/31/25). Patient impairments include antalgic gait with compensations, limited knee ROM, swelling, weakness in R quads and glutes. Patient current functional limitations are reciprocal stair use, bend/squat low surfaces, prolonged standing or walking. Patient will benefit from skilled PT to address aforementioned impairments and functional limitations to meet established goals. Frequency and Duration: The patient will be seen 1x/week for 8 weeks (limited by high co-pay) Short Term Goals: 2 weeks Patient demonstrates consistency and independence with HEP to self manage symptoms. Patient presents with decreased swelling in R knee with midpatellaer circumferential measurement 41cm. 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 Patient presents with increased R knee quad strength 4+/5 to be able to perform reciprocal stair use. Treatment Plan: Modalities to reduce pain, spasms and effusion. Manual therapy to restore motion and function. Therapeutic exercise to improve strength and flexibility. Neuromuscular re-education for posture and balance. Therapeutic activities to return to functional activities of daily living. Electronically signed by: Jillian Cook, PT, DPT Please sign and return to therapist. Thank you for your referral.
--- NOTE | 2025-08-24 11:22 | MHC.PT.DC ---
[facility] [place] Office [place] Office [place] Office [address] Armaan Sawant [address] [facility] [phone] F: [phone] F: [phone] F: [phone] F: [phone] Physical Therapy Discharge Report Diagnosis: RIGHT TKA (DOS: 03/31/25, Dr. Mcdonald) RS Date of Surgery: 03/31/25 Date of Evaluation: 04/20/25 Date of Discharge: 08/24/25 Treatments to Date: 10 Cancellations to Date: 3 No Shows to Date: Discharge Status: Achieved Goals Improved Function Independent with HEP Discharge Summary: Pt has made excellent progress and reports B knees feel good. She is I with HEP and has met goals. At this time, she is appropriate for d/c to I HEP. Electronically signed by: Melanie Banegas PT Please sign and return to therapist. Thank you for your referral.
== END 2025-08-24 11:23 | disposition home or self-care (01) ==
LOC: HO.PT 09:45
PROVIDERS: PCP Internal Medicine; Visit Provider Physician Assistant
DX: Z96.651 Presence of right artificial knee joint (principal)
CPT/HCPCS: 97110; 97112; 97116; 97140; 97161; 97530